=== PATIENT | female | born 1955 | race Hispanic/Latino ===

== ENCOUNTER 2018-01-17 18:16 | Emergency (ER) | payer OTHER ==
--- NOTE | 2018-01-17 19:15 | ER ---
Nurse's Notes [facility] Name: Kallie Rivera Age: 62 yrs Sex: Female : 1955 Arrival Date: 01/17/2018 Time: 18:16 Bed 18 Private MD: Diagnosis: Otitis media, unspecified, bilateral;Acute pharyngitis Presentation: 01/17 18:21 Presenting complaint: Patient states: I have been having problems with sore throat, la1 fevers, and ear pain for the last 3 weeks. I saw my PCP early December and she gave me shot but its not helping. Transition of care: patient was not received from another setting of care. Onset of symptoms was January 17, 2018. Initial Sepsis Screen: Does the patient meet any 2 criteria? No. Patient's initial sepsis screen is negative. Does the patient have a suspected source of infection? No. Patient's initial sepsis screen is negative. Care prior to arrival: None. 18:21 Method Of Arrival: Ambulatory la1 18:21 Acuity: PORFIRIO 4 la1 Historical: - Allergies: 18:22 No Known Allergies; la1 - PMHx: 18:22 Diabetes - NIDDM; Hypertension; la1 - Immunization history:: Adult Immunizations up to date. - Social history:: Smoking status: Patient/guardian denies using tobacco. Screenin:34 Abuse screen: Denies threats or abuse. Denies injuries from another. Nutritional bs1 screening: No deficits noted. Tuberculosis screening: No symptoms or risk factors identified. Fall Risk None identified. Assessment: 19:32 General: Appears in no apparent distress. uncomfortable, ill, Behavior is calm, bs1 cooperative, appropriate for age. Pain: Complains of pain in Right ear, throat Pain does not radiate. Neuro: Level of Consciousness is awake, alert, obeys commands, Oriented to person, place, time, situation, Appropriate for age Clay Carman are equal bilaterally Moves all extremities. Cardiovascular: Denies chest pain, palpitations, shortness of breath, Heart tones S1 S2 present Capillary refill < 3 seconds Patient's skin is warm and dry. Respiratory: Airway is patent Trachea midline Respiratory effort is even, unlabored, Breath sounds are clear bilaterally. GI: No deficits noted. No signs and/or symptoms were reported involving the gastrointestinal system. : No deficits noted. No signs and/or symptoms were reported regarding the genitourinary system. EENT: Throat is reddened Reports pain to right ear. Derm: Skin is intact, Skin is pink, warm \T\ dry. Musculoskeletal: Circulation, motion, and sensation intact. Capillary refill < 3 seconds, Range of motion: intact in all extremities. Vital Signs: 18:23 BP 174 / 68; Pulse 110; Resp 16; Temp 98.5(TE); Pulse Ox 96% on R/A; Weight 71.21 kg; la1 Height 5 ft. 1 in. (154.94 cm); 19:35 BP 159 / 93; Pulse 101; Resp 18; Temp 98.4(O); Pulse Ox 95% on R/A; Pain 5/10; bs1 18:23 Body Mass Index 29.66 (71.21 kg, 154.94 cm) la1 ED Course: 18:16 Patient arrived in ED. as 18:22 Triage completed. la1 18:23 Arm band placed on left wrist. la1 18:45 Toney Wilkins PA is PHCP. cp 18:45 Jamshid Dhaliwal MD is Attending Physician. cp 19:34 No provider procedures requiring assistance completed. Patient did not have IV access bs1 during this emergency room visit. 19:35 Patient has correct armband on for positive identification. Bed in low position. Call bs1 light in reach. Side rails up X 1. Pulse ox on. NIBP on. Administered Medications: No medications were administered Outcome: 19:14 Discharge ordered by . cp 19:35 Discharged to home ambulatory, with family. bs1 19:35 Condition: stable 19:35 Discharge instructions given to patient, family, Instructed on discharge instructions, follow up and referral plans. medication usage, Demonstrated understanding of instructions, follow-up care, medications, Prescriptions given X 2. 19:36 Patient left the ED. bs1 Signatures: Lynette Dietz Lee RN RN la1 Toney Wilkins PA PA cp Salazar, Brittany, RN RN bs1
--- NOTE | 2018-01-17 19:15 | EDPHYS ---
Physician Documentation [facility] Name: Kallie Rivera Age: 62 yrs Sex: Female : 1955 Arrival Date: 01/17/2018 Time: 18:16 Bed 18 Private MD: ED Physician Jamshid Dhaliwal HPI: 01/17 19:05 This 62 yrs old Female presents to ER via Ambulatory with complaints of Sore cp Throat, Fever, Ear Pain. 19:05 The patient presents with sore throat. Onset: The symptoms/episode began/occurred 3 cp week(s) ago. Severity of symptoms: in the emergency department the symptoms are unchanged. Associated signs and symptoms: Pertinent positives: earache, rhinorrhea. Patient reports she was seen by PCP and given IM steroid injection. Patient reports worsening symptoms. Historical: - Allergies: 18:22 No Known Allergies; la1 - PMHx: 18:22 Diabetes - NIDDM; Hypertension; la1 - Immunization history:: Adult Immunizations up to date. - Social history:: Smoking status: Patient/guardian denies using tobacco. ROS: 19:07 Eyes: Negative for injury, pain, redness, and discharge. cp 19:07 Constitutional: Negative for body aches, chills, fever, poor PO intake. 19:07 ENT: Positive for ear pain, sore throat, Negative for drainage from ear(s), difficulty swallowing, difficulty handling secretions, hoarseness. 19:07 Neck: Positive for swollen nodes. 19:07 Cardiovascular: Negative for chest pain, edema, palpitations. 19:07 Respiratory: Negative for cough, shortness of breath, wheezing. 19:07 Abdomen/GI: Negative for abdominal pain, vomiting, diarrhea, constipation. 19:07 Skin: Negative for cellulitis, rash. 19:07 Neuro: Negative for altered mental status, headache, weakness. 19:07 All other systems are negative. Exam: 19:07 Head/Face: Normocephalic, atraumatic. cp 19:07 Constitutional: The patient appears in no acute distress, alert, awake, non-toxic, well developed, well nourished. 19:07 Eyes: Periorbital structures: appear normal, Conjunctiva: normal, no exudate, no injection, Sclera: no appreciated abnormality, Lids and lashes: appear normal, bilaterally. 19:07 ENT: External ear(s): are unremarkable, Ear canal(s): are normal, clear, TM's: bulging, is not appreciated, bilaterally, erythema, that is mild, bilaterally, Mouth: Lips: moist, Oral mucosa: moist, Posterior pharynx: Airway: no evidence of obstruction, patent, Tonsils: with erythema, no enlargement, no exudate, Uvula: midline, swelling, is not appreciated, erythema, that is moderate, exudate, is not appreciated, Voice: is normal. 19:07 Neck: ROM/movement: is normal, is supple, without pain, no range of motions limitations, no nuchal rigidity, Lymph nodes: lymphadenopathy is appreciated, anterior cervical nodes. 19:07 Chest/axilla: Inspection: normal, Palpation: is normal, no crepitus, no tenderness. 19:07 Cardiovascular: Rate: tachycardic, Rhythm: regular. 19:07 Respiratory: the patient does not display signs of respiratory distress, Respirations: normal, no use of accessory muscles, no retractions, no splinting, no tachypnea, Breath sounds: are clear throughout, no decreased breath sounds, no stridor, no wheezing. 19:07 Abdomen/GI: Exam negative for discomfort, distension, guarding, Inspection: abdomen appears normal. 19:07 Skin: cellulitis, is not appreciated, no rash present. Vital Signs: 18:23 BP 174 / 68; Pulse 110; Resp 16; Temp 98.5(TE); Pulse Ox 96% on R/A; Weight 71.21 kg; la1 Height 5 ft. 1 in. (154.94 cm); 19:35 BP 159 / 93; Pulse 101; Resp 18; Temp 98.4(O); Pulse Ox 95% on R/A; Pain 5/10; bs1 18:23 Body Mass Index 29.66 (71.21 kg, 154.94 cm) la1 MDM: 18:45 Patient medically screened. 19:13 Data reviewed: vital signs, nurses notes, lab test result(s). 01/17 18:23 Order name: Flu; Complete Time: 19:04 la1 01/17 19:04 Interpretation: Reviewed. 01/17 18:23 Order name: Strep; Complete Time: 19:04 [facility] 01/17 18:55 Order name: Throat Culture EDMS Administered Medications: No medications were administered Disposition: 01/17/18 19:14 Discharged to Home. Impression: Otitis media, unspecified, bilateral, Acute pharyngitis. - Condition is Stable. - Discharge Instructions: Otitis Media, Adult, Pharyngitis. - Prescriptions for Prednisone 20 mg Oral Tablet - take 2 tablet by ORAL route once daily for 5 days; 10 tablet. Amoxicillin 875 mg Oral Tablet - take 1 tablet by ORAL route every 12 hours for 10 days; 20 tablet. - Medication Reconciliation Form, Thank You Letter, Antibiotic Education, Prescription Opioid Use form. - Follow up: Private Physician; When: 2 - 3 days; Reason: Recheck today's complaints. - Problem is new. - Symptoms are unchanged. Signatures: Dispatcher [employer] EDMS Luis De Leon, RN RN la1 Toney Wilkins PA PA cp Salazar, Brittany RN RN bs1
[2018-01-17 19:42] VITALS: BP 159/93; TEMP 98.4; O2SAT 95
== END 2018-01-17 19:36 | disposition home or self-care (01) ==
LOC: ER 18:16
DX: H66.93 Otitis media, unspecified, bilateral (principal); J02.9 Acute pharyngitis, unspecified
CPT/HCPCS: 87070; 87081; 87804; 99283

== ENCOUNTER 2018-04-23 09:51 | Inpatient (IN) | payer OTHER ==
--- OUTSIDE RECORDS SUMMARY | 2018-04-23 09:53 | XMS REPORT ---
:1955 Author Organization [employer] Care Team Providers Name Role Phone Gyu, Marilee Provider Role Unavailable Allergies, Adverse Reactions, Alerts Substance Reaction Event Type N.K.D.A. 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.4 Active Problem Hyperlipidemia, mixed E78.2 Active Problem Rheumatoid arthritis M06.9 Active Assessment Sinus pressure J34.89 Active Problem Benign essential HTN I10 Active Assessment Tinea pedis of both feet B35.3 Active Assessment Diabetic neuropathy E11.40 Active Problem Diabetes E11.9 Active Problem Osteopenia M85.80 Active Problem Obese E66.9 Active Problem Hyperglycemia R73.9 Active Problem Diabetic neuropathy E11.40 Active Assessment Benign essential HTN I10 Active Assessment custodial current use of insulin Z79.4 Active Assessment Seasonal allergic rhinitis due to J30.1 Active pollen Assessment Hyperlipidemia, mixed E78.2 Active Problem Seasonal allergic rhinitis due to J30.1 Active pollen Problem Surgical menopause, symptomatic E89.41 Active Assessment Type 2 diabetes mellitus with E11.41 Active diabetic mononeuropathy Problem Osteoarthritis of multiple joints M15.9 Active Problem Calculus of kidney and ureter N20.2 Active Problem Type 2 diabetes mellitus with E11.65 Active hyperglycemia Medications Medication Code Code Instructions Start End Status Dosage System Date Date Lipitor [facility] 02774209754 20 MG Orally Active 1 tablet Once a day Zestoretic ND 90597681123 20-12.5 MG Active 1 tablet Orally Once a day Tresiba [facility] 27237840566 200 UNIT/ML Active not defined FlexTouch Subcutaneous ProAir HFA [facility] 79353416406 108 (90 Base) Active 2 puffs as MCG/ACT needed Inhalation every 6 hrs Metformin HCl [facility] 49287231114 1000 MG Orally Active 1 tablet with Twice a day meals Jardiance [facility] 97631803385 25 MG Orally Active 1 tablet Once a day Victoza [facility] 25921374168 18 MG/3ML Active not defined Subcutaneous Clotrimazole [facility] 21093148445 1 % Externally March Active 1 application Twice a day , to affected 2017 area Lyrica [facility] 75811028127 75 MG Orally Active 1 capsule 1 Once a day to 3 hours before bedtime in the evening Bystolic [facility] 05941219412 10 MG Orally Active 1 tablet Once a day Aspirin [facility] 05176598273 81 MG Orally Active 1 tablet Once a day Results No Known Results Summary Purpose eClinicalWorks Submission
--- OUTSIDE RECORDS SUMMARY | 2018-04-23 09:53 | XMS REPORT ---
:1955 Author Organization [employer] Care Team Providers Name Role Phone Guy, Na Provider Role Unavailable Allergies No Known Allergies Problems Problem Type Condition Code Onset Dates Condition Status Problem Type 2 diabetes mellitus with E11.41 Active diabetic mononeuropathy Problem longterm current use of insulin Z79.4 Active Problem Hyperlipidemia, mixed E78.2 Active Problem Rheumatoid arthritis M06.9 Active Problem Benign essential HTN I10 Active Problem Diabetes E11.9 Active Problem Osteopenia M85.80 Active Problem Obese E66.9 Active Problem Hyperglycemia R73.9 Active Problem Diabetic neuropathy E11.40 Active Problem Seasonal allergic rhinitis due to J30.1 Active pollen Problem Surgical menopause, symptomatic E89.41 Active Problem Osteoarthritis of multiple joints M15.9 Active Problem Calculus of kidney and ureter N20.2 Active Problem Type 2 diabetes mellitus with E11.65 Active hyperglycemia Medications No Known Medications Results No Known Results Summary Purpose eClinicalWorks Submission
--- OUTSIDE RECORDS SUMMARY | 2018-04-23 09:53 | XMS REPORT ---
:1955 Author Organization [employer] Care Team Providers Name Role Phone Guy, Na Provider Role Unavailable Allergies No Known Allergies Problems Problem Type Condition Code Onset Dates Condition Status Problem Type 2 diabetes mellitus with E11.41 Active diabetic mononeuropathy Problem intermediate current use of insulin Z79.4 Active Problem [...]
--- OUTSIDE RECORDS SUMMARY | 2018-04-23 09:53 | XMS REPORT ---
:1955 Author Organization [employer] Care Team Providers Name Role Phone Guy, Na Provider Role Unavailable Allergies, Adverse Reactions, Alerts Substance Reaction Event Type N.K.D.A. 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 Active Problem Hyperlipidemia, mixed E78.2 Active Problem Seasonal allergic rhinitis due to J30.1 Active pollen Problem Calculus of kidney and ureter N20.2 Active Problem Obese E66.9 Active Problem Osteopenia M85.80 Active Assessment Pharyngitis, unspecified etiology J02.9 Active Assessment Seasonal allergic rhinitis, J30.2 Active unspecified trigger Problem Benign essential HTN I10 Active Problem Rheumatoid arthritis M06.9 Active Problem Diabetic neuropathy E11.40 Active Problem Diabetes E11.9 Active Problem Hyperglycemia R73.9 Active Problem Surgical menopause, symptomatic E89.41 Active Medications Medication Code Code Instructions Start End Status Dosage System Date Date Singulair [facility] 34336566893 10 MG Orally December Active 1 tablet in Once a day 2017 the evening Jardiance [facility] 68356827747 25 MG Orally Active 1 tablet Once a day Aspirin ND 21772229751 81 MG Orally Active 1 tablet Once a day Metformin HCl ND 58487947368 1000 MG Orally Active 1 tablet with Twice a day meals Clotrimazole [facility] 94083301200 1 % Externally March Active 1 application Twice a day , to affected 2018 area Zestoretic ND 10365860856 20-12.5 MG Active 1 tablet Orally Once a day Bystolic [facility] 97145301937 10 MG Orally Active 1 tablet Once a day Flonase [facility] 66023677526 50 MCG/ACT December Active 2 spray in Nasally Once a 2017 each nostril day Victoza [facility] 07601017795 18 MG/3ML Active not defined Subcutaneous Lyrica [facility] 41523671887 75 MG Orally Active 1 capsule 1 Once a day to 3 hours before bedtime in the evening Lipitor [facility] 44670101779 20 MG Orally Active 1 tablet Once a day Tresiba [facility] 27307403085 200 UNIT/ML Active not defined FlexTouch Subcutaneous ProAir HFA [facility] 24755318375 108 (90 Base) Active 2 puffs as MCG/ACT needed Inhalation every 6 hrs Results No Known Results Summary Purpose eClinicalWorks Submission
--- OUTSIDE RECORDS SUMMARY | 2018-04-23 09:54 | XMS REPORT ---
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
[2018-04-23] MEDS ORDERED: NA CHLORIDE 0.9% 1,000 ML ONE (10:27)
[2018-04-23] MEDS ORDERED: ONDANSETRON 4 MG/2 ML VIAL ONE (10:27)
[2018-04-23 10:39] LABS: Urine Blood TRACE (NEG); Urine Glucose 2+ (NEG); Urine Protein 1+ (NEG); Urine pH 5.5 (5.0-7.0)
[2018-04-23 10:48] LABS: Urine Bacteria 20-50 /HPF (<20); Urine Culture Reflex Order REFLEXED; Urine RBC <5 /HPF (NONE SEEN)
[2018-04-23 10:54] LABS: Absolute Lymphocytes (CBC) 0.9 K/uL (0.7-4.9); Absolute Monocytes 0.6 K/uL (0.1-1.3); Absolute Neutrophil 8.6 K/uL (1.8-8.0); Basophils % 0.2 % (0-1.3); Eosinophils % 0.1 % (0-4.4); Hematocrit 44.3 % (36.0-45.0); MCV 82.4 fL (80-100); Monocytes % 5.5 % (3.3-12.3); RBC Red Blood Cell Count 5.37 M/uL (3.86-4.86)
[2018-04-23] MEDS ORDERED: MORPHINE 4 MG/ML SYR ONE (11:04)
[2018-04-23 11:11] LABS: ALT/SGPT 25 U/L (12-78); AST/SGOT 14 U/L (15-37); Albumin 3.8 g/dL (3.4-5.0); Alkaline Phosphatase 105 U/L (45-117); Amylase Level 111 U/L (25-115); BUN Blood Urea Nitrogen 14 mg/dL (7-18); Bicarbonate 27 mmol/L (21-32); Bilirubin Direct < 0.1 mg/dL (0-0.2); Bilirubin Total 0.5 mg/dL (0.2-1.0); Glucose Level 300 mg/dL (74-106); Lipase 1391 U/L (73-393); Potassium 3.8 mmol/L (3.5-5.1); Protein, Total 7.3 g/dL (6.4-8.2); Sodium Level 138 mmol/L (136-145)
[2018-04-23 11:18] LABS: Blood Morphology Comment NOT SEEN (NOT SEEN); Platelet Estimate ADEQ; Urine White Blood Cell Casts OK
[2018-04-23] MEDS ORDERED: INSULIN -REGULAR HUMAN 50 UNIT/0.5 ML ML ONE (12:08)
--- NOTE | 2018-04-23 13:37 | RAD REPORT ---
EXAM DESCRIPTION: CT - Abdomen Pelvis W Contrast - 04/23/2018 1:12 pm CLINICAL HISTORY: Abdominal pain, bloating, nausea, fever, prior hysterectomy COMPARISON: None. TECHNIQUE: Biphasic, helical CT imaging of the abdomen and pelvis was performed following 100 ml non -ionic IV contrast. Oral contrast was given. All CT scans are performed using dose optimization technique as appropriate and may include automated exposure control or mA/KV adjustment according to patient size. FINDINGS: No suspicious findings in the lung bases. Patient has a minimal hiatal hernia. Liver shows fatty infiltration pattern with no focal liver lesion. No hepatomegaly or nodular capsule contour. No splenomegaly or focal splenic process. Gallbladder and biliary tree show no suspicious f indings. The body and tail portion of the pancreas shows no suspicious parenchymal process. No peripancreatic stranding in this region. Tissue plane separation between the second/third portions of the duodenum a nd the pancreatic head uncinate process region poorly defined. There is edema and stranding in the ad jacent fatty tissue. There is an approximately 2.5 centimeter area of decreased soft tissue attenuati on at the tissue plane as well as a questionable mass or area of diminished attenuation measuring 13 mm along medial wall of the second portion duodenum. There is no obstruction or delay in transit of o ral contrast through the duodenum. Distal duodenum is unremarkable. Symmetric renal function is seen with no hydronephrosis or suspicious renal mass. A 10 millimeter ryan cification is present mid right kidney. There is focal dilatation of the involved calyx. This is not an acute finding. Partially filled urinary bladder shows no suspicious finding. Uterus is absent. Ova diana are absent or atrophic. No adnexal mass. Jejunum and ileum show no acute findings. Colonic diverticulosis is present in the sigmoid without di verticulitis. An acute colon process is not identified. No free air, free fluid or pneumatosis. No o ther area of inflammatory stranding. No hernia, mass or bulky lymphadenopathy. No adrenal abnormalit y. No suspicious bony findings. IMPRESSION: Edema and stranding changes are present along around the uncinate process and head of th e pancreas with wall thickening and edema of the second and third portions of the duodenum. There is poor tissues plane separation between the involved duodenum and pancreas. Areas of diminished attenuation are present at the pancreas duodenum interface. This could be focal e asa or possibly hypodense mass. Most common etiology is pancreatitis with secondary duodenum involvement. Correlation is needed with any clinical or laboratory findings for pancreatitis. Continued follow-up is needed with re-evaluation after treatment of any acute pancreatitis symptoms. Fatty infiltration of the liver. No acute gallbladder or biliary tree finding. Nonobstructing 10 mm calcification in the mid right kidney.
--- NOTE | 2018-04-23 13:42 | EDPHYS ---
Physician Documentation [facility] Name: Kallie Rivera Age: 62 yrs Sex: Female : 1955 Arrival Date: 04/23/2018 Time: 09:54 Bed 16 Private MD: Marilee Guy ED Physician Raul Roca HPI: 04/23 10:25 This 62 yrs old Female presents to ER via Ambulatory with complaints of kav Abdominal Pain, Nausea. 10:25 The patient presents with abdominal pain that is diffuse. Onset: The symptoms/episode kav began/occurred acutely, last night. The symptoms do not radiate. Associated signs and symptoms: Pertinent positives: nausea, Pertinent negatives: diarrhea, vomiting. The symptoms are described as dull. Modifying factors: The symptoms are alleviated by nothing, the symptoms are aggravated by nothing. Severity of pain: At its worst the pain was severe just prior to arrival, a 8 / 10. The patient has not experienced similar symptoms in the past. The patient has not recently seen a physician. Patient is crying during assessment. Historical: - Allergies: : No Known Allergies; hj - Home Meds: :59 amlodipine 10 mg tab 1 tab once daily [Active]; lisinopril-hydrochlorothiazide 20-12.5 hj mg oral tab 1 tab once daily [Active]; Bystolic 10 mg oral tab 1 tab once daily [Active]; - PMHx: 09:59 Diabetes - NIDDM; Hypertension; hj - PSHx: :59 Hysterectomy; Tubal ligation; hj - Immunization history:: Adult Immunizations up to date. - Social history:: Smoking status: Patient/guardian denies using tobacco, Patient/guardian denies using alcohol. - Ebola Screening: : Patient negative for fever greater than or equal to 101.5 degrees Fahrenheit, and additional compatible Ebola Virus Disease symptoms Patient denies exposure to infectious person Patient denies travel to an Ebola-affected area in the 21 days before illness onset. - Family history:: not pertinent. - Hospitalizations: : No recent hospitalization is reported. - History obtained from: . ROS: 10:29 Constitutional: Negative for fever, chills, and weight loss, Eyes: Negative for injury, kav pain, redness, and discharge, ENT: Negative for injury, pain, and discharge, Neck: Negative for injury, pain, and swelling, Cardiovascular: Negative for chest pain, palpitations, and edema, Respiratory: Negative for shortness of breath, cough, wheezing, and pleuritic chest pain, Back: Negative for injury and pain, : Negative for injury, bleeding, discharge, and swelling, MS/Extremity: Negative for injury and deformity, Skin: Negative for injury, rash, and discoloration, Neuro: Negative for headache, weakness, numbness, tingling, and seizure, Psych: Negative for depression, anxiety, suicide ideation, homicidal ideation, and hallucinations, Allergy/Immunology: Negative for hives, rash, and allergies, Endocrine: Negative for neck swelling, polydipsia, polyuria, polyphagia, and marked weight changes, Hematologic/Lymphatic: Negative for swollen nodes, abnormal bleeding, and unusual bruising. 10:29 Abdomen/GI: Positive for abdominal pain, nausea, Negative for vomiting, diarrhea, black/tarry stool, rectal bleeding. Exam: 10:29 Constitutional: This is a well developed, well nourished patient who is awake, alert, kav and in no acute distress. Head/Face: Normocephalic, atraumatic. Eyes: Pupils equal round and reactive to light, extra-ocular motions intact. Lids and lashes normal. Conjunctiva and sclera are non-icteric and not injected. Cornea within normal limits. Periorbital areas with no swelling, redness, or edema. ENT: Nares patent. No nasal discharge, no septal abnormalities noted. Tympanic membranes are normal and external auditory canals are clear. Oropharynx with no redness, swelling, or masses, exudates, or evidence of obstruction, uvula midline. Mucous membranes moist. Neck: Trachea midline, no thyromegaly or masses palpated, and no cervical lymphadenopathy. Supple, full range of motion without nuchal rigidity, or vertebral point tenderness. No Meningismus. Chest/axilla: Normal chest wall appearance and motion. Nontender with no deformity. No lesions are appreciated. Cardiovascular: Regular rate and rhythm with a normal S1 and S2. No gallops, murmurs, or rubs. Normal PMI, no JVD. No pulse deficits. Respiratory: Lungs have equal breath sounds bilaterally, clear to auscultation and percussion. No rales, rhonchi or wheezes noted. No increased work of breathing, no retractions or nasal flaring. Back: No spinal tenderness. No costovertebral tenderness. Full range of motion. Skin: Warm, dry with normal turgor. Normal color with no rashes, no lesions, and no evidence of cellulitis. MS/ Extremity: Pulses equal, no cyanosis. Neurovascular intact. Full, normal range of motion. Neuro: Awake and alert, GCS 15, oriented to person, place, time, and situation. Cranial nerves II-XII grossly intact. Motor strength 5/5 in all extremities. Sensory grossly intact. Cerebellar exam normal. Normal gait. Psych: Awake, alert, with orientation to person, place and time. Behavior, mood, and affect are within normal limits. 10:29 Abdomen/GI: Inspection: obese Bowel sounds: active, all quadrants, Palpation: soft, moderate abdominal tenderness, in all quadrants. Vital Signs: 10:00 BP 151 / 75; Pulse 89; Resp 18; Temp 97.6(TE); Pulse Ox 98% on R/A; Weight 73.94 kg; hj Height 5 ft. 1 in. (154.94 cm); Pain 6/10; 11:47 BP 133 / 67; Pulse 76; Resp 18; Pulse Ox 95% on R/A; mt 13:45 BP 162 / 73; Pulse 79; Resp 16 S; Pulse Ox 96% on R/A; Pain 0/10; aa5 15:00 BP 161 / 76; Pulse 85; Resp 16 S; Temp 98.3(TE); Pulse Ox 98% on R/A; Pain 0/10; aa5 10:00 Body Mass Index 30.80 (73.94 kg, 154.94 cm) MDM: 10:11 Medical screening is not applicable. kav 10:29 Data reviewed: vital signs, nurses notes. kav 11:37 ED course: awaiting ct results. kav 13:12 Physician consultation: Lynne Andrews MD was called at 13:12, regarding admission, [facility] patient's condition, and will see patient. 13:28 ED course: awaiting ct results. ka 13:41 Physician consultation: was contacted at 13:41, would like medications started, kav rocephin 1 gm iv x 1 dose in ED setting. 04/23 10:19 Order name: Amylase, Serum; Complete Time: 11:35 [facility] 04/23 10:19 Order name: Basic Metabolic Panel; Complete Time: 11:35 [facility] 04/23 10:19 Order name: CBC with Diff; Complete Time: 11:35 [facility] 04/23 10:19 Order name: Creatinine for Radiology; Complete Time: 11:35 [facility] 04/23 10:19 Order name: Hepatic Function; Complete Time: 11:35 [facility] 04/23 10:19 Order name: Lipase; Complete Time: 11:35 [facility] 04/23 10:19 Order name: Urine Microscopic Only; Complete Time: 11:35 [facility] 04/23 10:29 Order name: CT Abd/Pelvis - W/Contrast; Complete Time: 13:38 [facility] 04/23 10:32 Order name: Urine Dipstick--Ancillary (enter results); Complete Time: 11:35 04/23 10:50 Order name: Urine Culture [facility] 04/23 10:57 Order name: CBC Smear Scan; Complete Time: 11:35 [facility] 04/23 10:08 Order name: Urine Dipstick-Ancillary (obtain specimen); Complete Time: 10:31 04/23 10:19 Order name: IV Saline Lock; Complete Time: 10:45 [facility] 04/23 10:19 Order name: Labs collected and sent; Complete Time: 10:45 ka Administered Medications: 10:40 Drug: NS 0.9% 1000 ml Route: IV; Rate: 125 ml/hr; Site: right antecubital; aa5 13:42 Follow up: IV Status: Infusion continued aa5 10:40 Drug: Zofran 4 mg Route: IVP; Site: right antecubital; aa5 10:45 Follow up: Response: No adverse reaction aa5 11:13 Drug: morphine 4 mg Route: IVP; Site: right antecubital; aa5 11:30 Follow up: Response: No adverse reaction; Marked relief of symptoms; Pain is decreased aa5 12:02 Not Given (md): Insulin Regular Human 6 units IVP once kav 12:03 Drug: Insulin Regular Human 5 units {Co-Signature: ed1 (Nicole Mccarty LVN).} Route: IVP; aa5 Site: right antecubital; 12:54 Follow up: Response: Blood sugar is lowered aa5 13:42 Drug: Rocephin - (cefTRIAXone) 1 grams {Note: given IVP per pharmacy protocol .} Route: aa5 IVPB; Infused Over: 30 mins; Site: right antecubital; 13:50 Follow up: Response: No adverse reaction aa5 Point of Care Testing: Blood Glucose: 11:59 Blood Glucose: 250 mg/dL; mh5 12:54 Blood Glucose: 202 mg/dL; aa5 Ranges: Critical Glucose Levels:Adult <50 mg/dl or >400 mg/dl <40 mg/dl or >180 mg/dl Disposition: 17:03 Co-signature as Attending Physician, Raul Roca MD I agree with the assessment and kdr plan of care. Disposition: 04/23/18 13:41 Hospitalization ordered by Lynne Andrews for Inpatient Admission. Preliminary diagnosis are Acute pancreatitis, unspecified, Hyperglycemia, unspecified, Urinary tract infection, site not specified. - Bed requested for Telemetry/MedSurg (observation). - Status is Inpatient Admission. aa5 - Condition is Stable. - Problem is new. - Symptoms have improved. UTI on Admission? Yes Signatures: Dispatcher [employer] EDMS Raul Roca MD MD kdr Vern, Katherine, PRODUCTION FOREMAN PRODUCTION FOREMAN Cyn Martinez RN RN aa5 Carlos Villanueva RN RN Kaye Kuo Nicole Mccarty [facility] ed1 Corrections: (The following items were deleted from the chart) 14:54 13:41 Hospitalization Ordered by Lynne Andrews MD for Inpatient Admission. Preliminary eb diagnosis is Acute pancreatitis, unspecified; Hyperglycemia, unspecified; Urinary tract infection, site not specified. Bed requested for Telemetry/MedSurg (observation). Status is Inpatient Admission. Condition is Stable. Problem is new. Symptoms have improved. UTI on Admission? Yes. servando 15:51 14:54 04/23/2018 13:41 Hospitalization Ordered by Lynne Andrews MD for Inpatient aa5 Admission. Preliminary diagnosis is Acute pancreatitis, unspecified; Hyperglycemia, unspecified; Urinary tract infection, site not specified. Bed requested for Telemetry/MedSurg (observation). Status is Inpatient Admission. Condition is Stable. Problem is new. Symptoms have improved. UTI on Admission? Yes. eb
--- NOTE | 2018-04-23 13:42 | ER ---
Nurse's Notes [facility] Name: Kallie Rivera Age: 62 yrs Sex: Female : 1955 Arrival Date: 04/23/2018 Time: 09:54 Bed 16 Private MD: Marilee Guy Diagnosis: Acute pancreatitis, unspecified;Hyperglycemia, unspecified;Urinary tract infection, site not specified Presentation: 04/23 09:55 Presenting complaint: Patient states: i have this stomach pain that started yesterday hj (epigastric area, that moves around the entire stomach), reports being bloated, reports nausea; report fever; denies diarrhea;. Transition of care: patient was not received from another setting of care. Onset of symptoms was April 23, 2018. Risk Assessment: Do you want to hurt yourself or someone else? Patient reports no desire to harm self or others. Initial Sepsis Screen: Does the patient meet any 2 criteria? No. Patient's initial sepsis screen is negative. Does the patient have a suspected source of infection? No. Patient's initial sepsis screen is negative. Care prior to arrival: None. 09:55 Method Of Arrival: Ambulatory 09:55 Acuity: PORFIRIO 3 hj Triage Assessment: 09:58 General: Appears in no apparent distress. uncomfortable, Behavior is calm, cooperative, hj appropriate for age. Pain: Complains of pain in abdomen. GI: Reports lower abdominal pain, upper abdominal pain, bloating, nausea. Historical: - Allergies: 09:59 No Known Allergies; hj - Home Meds: 09:59 amlodipine 10 mg tab 1 tab once daily [Active]; lisinopril-hydrochlorothiazide 20-12.5 hj mg oral tab 1 tab once daily [Active]; Bystolic 10 mg oral tab 1 tab once daily [Active]; - PMHx: 09:59 Diabetes - NIDDM; Hypertension; hj - PSHx: 09:59 Hysterectomy; Tubal ligation; hj - Immunization history:: Adult Immunizations up to date. - Social history:: Smoking status: Patient/guardian denies using tobacco, Patient/guardian denies using alcohol. - Ebola Screening: : Patient negative for fever greater than or equal to 101.5 degrees Fahrenheit, and additional compatible Ebola Virus Disease symptoms Patient denies exposure to infectious person Patient denies travel to an Ebola-affected area in the 21 days before illness onset. - Family history:: not pertinent. - Hospitalizations: : No recent hospitalization is reported. - History obtained from: . Screenin:57 Abuse screen: Denies threats or abuse. Denies injuries from another. Nutritional hj screening: No deficits noted. Tuberculosis screening: No symptoms or risk factors identified. Fall Risk None identified. Assessment: 09:58 GI: Bowel sounds present X 4 quads. Abd is soft and non tender. hj 10:15 General: Appears comfortable, Behavior is calm, cooperative, Reports chills for Pt aa5 states "my stomach felt like it had a fever last night". Pain: Complains of pain in right upper quadrant, left upper quadrant, right lower quadrant and left lower quadrant Pain radiates to epigastric area Pain currently is 6 out of 10 on a pain scale. Quality of pain is described as tender, Pain began last night Is continuous. Neuro: Level of Consciousness is awake, alert, obeys commands, Oriented to person, place, time, situation. Cardiovascular: Heart tones S1 S2 present Rhythm is regular. Respiratory: Airway is patent Respiratory effort is even, unlabored, Respiratory pattern is regular, symmetrical, Breath sounds are clear bilaterally. GI: Abdomen is round non-distended, Bowel sounds present X 4 quads. Abd is soft X 4 quads Abdomen is tender to palpation X 4 quads. Reports nausea, Patient currently denies diarrhea, vomiting. : No signs and/or symptoms were reported regarding the genitourinary system. EENT: No signs and/or symptoms were reported regarding the EENT system. Derm: Skin is pink, warm \\T\\ dry. Musculoskeletal: Range of motion: intact in all extremities. 11:05 Reassessment: Pt completed CT oral contrast, CT notified . aa5 11:05 Reassessment: Patient is alert, oriented x 3, equal unlabored respirations, skin aa5 warm/dry/pink. Pt notified of wait time for lab results and for CT scan to be completed, pt verbalized understanding . 11:30 Reassessment: Patient and/or family updated on plan of care and expected duration. Pain aa5 level reassessed. Patient is alert, oriented x 3, equal unlabored respirations, skin warm/dry/pink. Patient denies pain at this time. Patient states feeling better. 12:00 Reassessment: Patient is alert, oriented x 3, equal unlabored respirations, skin aa5 warm/dry/pink. Patient denies pain at this time. Patient states feeling better. Pt resting in bed with eyes closed now. . 12:54 Reassessment: Patient and/or family updated on plan of care and expected duration. Pain aa5 level reassessed. Patient is alert, oriented x 3, equal unlabored respirations, skin warm/dry/pink. Patient denies pain at this time. 14:00 Reassessment: Patient and/or family updated on plan of care and expected duration. Pain aa5 level reassessed. Patient is alert, oriented x 3, equal unlabored respirations, skin warm/dry/pink. Patient denies pain at this time. 15:00 Reassessment: Patient is alert, oriented x 3, equal unlabored respirations, skin aa5 warm/dry/pink. Patient denies pain at this time. 15:00 Reassessment: Attempted to call report to admitting nurse, staff reports nurse will aa5 call me back. . 15:48 Reassessment: Patient is alert, oriented x 3, equal unlabored respirations, skin aa5 warm/dry/pink. Vital Signs: 10:00 BP 151 / 75; Pulse 89; Resp 18; Temp 97.6(TE); Pulse Ox 98% on R/A; Weight 73.94 kg; hj Height 5 ft. 1 in. (154.94 cm); Pain 6/10; 11:47 BP 133 / 67; Pulse 76; Resp 18; Pulse Ox 95% on R/A; mt 13:45 BP 162 / 73; Pulse 79; Resp 16 S; Pulse Ox 96% on R/A; Pain 0/10; aa5 15:00 BP 161 / 76; Pulse 85; Resp 16 S; Temp 98.3(TE); Pulse Ox 98% on R/A; Pain 0/10; aa5 10:00 Body Mass Index 30.80 (73.94 kg, 154.94 cm) ED Course: 09:54 Patient arrived in ED. mr 09:54 Marilee Guy MD is Private Physician. mr 09:57 Triage completed. hj 09:58 Arm band placed on right wrist. hj 10:00 Patient has correct armband on for positive identification. Placed in gown. Bed in low hj position. Call light in reach. Side rails up X 1. 10:11 Sherine Silva, [facility] kav 10:11 Raul Roca MD is Attending Physician. kav 10:11 Cyn Castellanos, RN is Primary Nurse. aa5 10:30 Urine collected: clean catch specimen, cloudy. mh5 10:31 Urine Microscopic Only Sent. mh5 10:33 Missed attempt(s): 20 gauge in left forearm. Bleeding controlled, band aid applied, aa5 catheter tip intact. 10:35 Initial lab(s) drawn, by me, sent to lab. Inserted saline lock: 20 gauge in right aa5 antecubital area, using aseptic technique. Blood collected. 11:06 Oral contrast reported to be complete. vr 13:13 CT Abd/Pelvis - W/Contrast In Process Unspecified. EDMS 13:40 Lynne Andrews MD is Hospitalizing Provider. kav 15:48 No provider procedures requiring assistance completed. Patient admitted, IV remains in aa5 place. Administered Medications: 10:40 Drug: NS 0.9% 1000 ml Route: IV; Rate: 125 ml/hr; Site: right antecubital; aa5 13:42 Follow up: IV Status: Infusion continued aa5 10:40 Drug: Zofran 4 mg Route: IVP; Site: right antecubital; aa5 10:45 Follow up: Response: No adverse reaction aa5 11:13 Drug: morphine 4 mg Route: IVP; Site: right antecubital; aa5 11:30 Follow up: Response: No adverse reaction; Marked relief of symptoms; Pain is decreased aa5 12:02 Not Given (): Insulin Regular Human 6 units IVP once kav 12:03 Drug: Insulin Regular Human 5 units {Co-Signature: ed1 (Nicole Mccarty LVN).} Route: IVP; aa5 Site: right antecubital; 12:54 Follow up: Response: Blood sugar is lowered aa5 13:42 Drug: Rocephin - (cefTRIAXone) 1 grams {Note: given IVP per pharmacy protocol .} Route: aa5 IVPB; Infused Over: 30 mins; Site: right antecubital; 13:50 Follow up: Response: No adverse reaction aa5 Point of Care Testing: Blood Glucose: 11:59 Blood Glucose: 250 mg/dL; 5 12:54 Blood Glucose: 202 mg/dL; aa5 Ranges: Outcome: 13:41 Decision to Hospitalize by Provider. kadayday 15:48 Admitted to Med/surg accompanied by tech, via wheelchair, with chart, Report called to aa5 CHARLIE Parry 15:48 Condition: stable 15:48 Instructed on the need for admit, Demonstrated understanding of instructions. 15:51 Patient left the ED. aa5 Signatures: Dispatcher [employer] EDMS Sherine Silva, JOANIE CUSTOMER SALES SERVICE MANAGER Jolie Marquis mr Castellanos, Cyn, RN RN bc5 Krystyna Hess Henry, RN RN hj Martinez, Maria [facility] Anahy [place] Nicole Mccarty [employer] ed1 Corrections: (The following items were deleted from the chart) 10:02 10:00 Pulse 89bpm; Resp 18bpm; Pulse Ox 98% RA; Temp 97.6F Temporal; 73.94 kg; Height 5 hj ft. 1 in.; BMI: 30.8; Pain 6/10; hj 10:22 10:15 General: Appears comfortable, Behavior is calm, cooperative, aa5 aa5 10:45 10:15 GI: Abdomen is round non-distended, Bowel sounds present X 4 quads. Abd is soft aa5 and non tender X 4 quads. Reports nausea, Patient currently denies diarrhea, vomiting, aa5
[2018-04-23] MEDS ORDERED: CEFTRIAXONE/SWI 1gm 1 GM/10 ML SYR ONE (13:44)
--- NOTE | 2018-04-23 15:21 | P.HP ---
Certification for Inpatient Patient admitted to: Inpatient With expected LOS: >2 Midnights Patient will require the following post-hospital care: None Practitioner: I am a practitioner with admitting privileges, knowledge of patient current condition, hospital course, and medical plan of care. Services: Services provided to patient in accordance with Admission requirements found in Title 42 Section 412.3 of the Code of Federal Regulations Patient History Date of Service: 04/23/18 Primary Care Provider: Dr Guy Reason for admission: Abd pain History of Present Illness: 1 female with significant past medical history of high blood pressure, diabetes , who presented to the ED complaining of having some abdominal pain that she has been having for past 2-3 weeks however has good progressively worse. Patient stated that she has been having some epigastric pain which seemed like reflux for about 2 weeks but last night after she had pork chops her pain got worse and decided to come to the ER this morning. Patient stated that she has associated nausea and vomiting as well. She noticed that she was having some chills last night as well. Patient denies having any fever at this time. Patient stated that she has not had any similar symptoms in the past and this is the 1st time she is experiencing something like this. Her abdominal pain is generalized and cramping in nature. It is 7/10 at its worst. Patient has not taken any medications to help with the pain and does not think that anything makes it worse. No other complaints to offer at this time. In the ER patient was found to have elevated lipase along with abdominal CT that was consistent with acute pancreatitis and referred over for admission. Allergies No Known Allergies Allergy (Unverified 01/17/18 19:40) Home medications list reviewed: Yes - Past Medical/Surgical History Has patient received pneumonia vaccine in the past: No Diabetic: Yes -: HTN -: Diabetes Past Surgical History: Reviewed- Non-Contributory - Family History Family History: Reviewed- Non-Contributory Review of Systems General: As per HPI Physical Examination - Physical Exam General: Alert, In no apparent distress, Oriented x3 HEENT: Atraumatic Neck: Supple, 2+ carotid pulse no bruit, No LAD, Without JVD or thyroid abnormality Respiratory: Clear to auscultation bilaterally, Normal air movement Cardiovascular: Regular rate/rhythm, Normal S1 S2 Gastrointestinal: Normal bowel sounds, Soft and benign, Non-distended, No tenderness, Tenderness (Generalized tenderness) Musculoskeletal: No tenderness Integumentary: No rashes Neurological: Normal speech, Normal strength at 5/5 x4 extr, Normal tone Lymphatics: No axilla or inguinal lymphadenopathy - Studies Laboratory Data (last 24 hrs) 04/23/18 10:35: Creatinine 0.90 04/23/18 10:35: WBC 10.1, Hgb 15.1 H, Hct 44.3, Plt Count 210 04/23/18 10:35: Sodium 138, Potassium 3.8, BUN 14, Creatinine 0.90, Glucose 300 H, Total Bilirubin 0.5, AST 14 L, ALT 25, Alkaline Phosphatase 105, Amylase 111 , Lipase 1391 H Assessment and Plan - Problems (Diagnosis) (1) Acute pancreatitis Current Visit: Yes Status: Acute Plan: Lipase of 1390 with generalized abd pain. Unknown etiology at this time -CT abdomen with stranding around the head of the pancreas -IV fluids, nothing by mouth, pain medication, IV antibiotics as well. -if no improvement within 24-48 hr will get GI consultation for further workup. Qualifiers: Pancreatitis type: idiopathic Acute pancreatitis complication: no infection or necrosis Qualified Code(s): K85.00 - Idiopathic acute pancreatitis without necrosis or infection (2) UTI (urinary tract infection) Current Visit: Yes Status: Acute Plan: UA with positive nitrates and leukesterase. -urine culture collected -IV Rocephin Qualifiers: Urinary tract infection type: acute cystitis Hematuria presence: without hematuria Qualified Code(s): N30.00 - Acute cystitis without hematuria (3) Diabetes Current Visit: Yes Status: Chronic Plan: Will start on insulin sliding scale Qualifiers: Diabetes mellitus type: type 2 Diabetes mellitus fci insulin use: without fci use Diabetes mellitus complication status: without complication Qualified Code(s): E11.9 - Type 2 diabetes mellitus without complications (4) HTN (hypertension) Current Visit: Yes Status: Chronic Plan: Will restart home medication Qualifiers: Hypertension type: essential hypertension Qualified Code(s): I10 - Essential (primary) hypertension (5) Obesity Current Visit: Yes Status: Chronic Qualifiers: Obesity type: due to excess calories Obesity classification: adult class 2 (BMI 35 - 39.9) Serious obesity comorbidity presence: without serious comorbidity Body mass index: BMI 35.0-35.9 Qualified Code(s): E66.09 - Other obesity due to excess calories; Z68.35 - Body mass index (BMI) 35.0-35.9, adult Discharge Plan: Home Plan to discharge in: 48 Hours - Advance Directives Does patient have a Living Will: No Does patient have a Durable POA for Healthcare: No - Code Status/Comfort Care Code Status Assessed: Yes Critical Care: No
[2018-04-23] MEDS ORDERED: ACETAMINOPHEN 500 MG TAB PO PRN (15:49)
[2018-04-23] MEDS: INSULIN -REGULAR HUMAN 50 UNIT/0.5 ML ML SQ SCH ×2 (16:30→21:00)
[2018-04-23 17:31] VITALS: BMI 30.8
[2018-04-23] MEDS: NA CHLORIDE 0.9% 1,000 ML IV SCH (17:54)
[2018-04-23] MEDS: ONDANSETRON 4 MG/2 ML VIAL IV PRN (18:55)
[2018-04-23] MEDS ORDERED: KCL 20 MEQ/100 mL IVPB 20 MEQ/100 ML BAG IV SCH (21:00)
[2018-04-24] MEDS: INSULIN -REGULAR HUMAN 50 UNIT/0.5 ML ML SQ SCH ×4 (01:00→16:30)
[2018-04-24] MEDS: NA CHLORIDE 0.9% 1,000 ML IV SCH ×3 (04:16→21:07)
[2018-04-24 05:13] LABS: Absolute Lymphocytes (CBC) 1.1 K/uL (0.7-4.9); Absolute Monocytes 0.8 K/uL (0.1-1.3); Absolute Neutrophil 7.3 K/uL (1.8-8.0); Basophils % 0.3 % (0-1.3); Eosinophils % 0.7 % (0-4.4); Hematocrit 42.2 % (36.0-45.0); Lymphocytes % 12.3 % (15.3-44.8); MCH 27.9 pg (27.0-35.0); MCV 83.3 fL (80-100); MPV 9.3 fL (7.6-11.3); Monocytes % 8.8 % (3.3-12.3); RBC Red Blood Cell Count 5.07 M/uL (3.86-4.86)
[2018-04-24] MEDS ORDERED: HOME MED 1 EA UNK (Lisinopril/Hydrochlorothiazide [Lisinopril-Hctz 20-12.5 Mg Tab] 1 EACH) PO SCH (09:00)
[2018-04-24] MEDS ORDERED: NEBIVOLOL HCL PO SCH (09:00)
[2018-04-24] MEDS ORDERED: NEBIVOLOL HCL 20 MG TABLET PO SCH (09:00)
[2018-04-24 09:19] LABS: Albumin 3.2 g/dL (3.4-5.0); Bilirubin Total 0.7 mg/dL (0.2-1.0); Magnesium 1.8 mg/dL (1.8-2.4); Phosphorus 2.5 mg/dL (2.5-4.9); Potassium 3.7 mmol/L (3.5-5.1); Protein, Total 6.6 g/dL (6.4-8.2)
[2018-04-24] MEDS: LISINOPRIL 20 MG TAB PO SCH (10:07)
[2018-04-24] MEDS: hydroCHLOROthiazide 12.5 MG CAP PO SCH (10:08)
[2018-04-24] MEDS: AMLODIPINE 10 MG TAB PO SCH (10:08)
[2018-04-24] MEDS: MORPHINE 2 MG/ML SYR IV PRN ×2 (10:13→19:08)
--- NOTE | 2018-04-24 11:27 | P.PN ---
Subjective Date of Service: 04/24/18 Primary Care Provider: Dr Guy Chief Complaint: Abd pain Garzon seen and examined at bedside with RN chart reviewed. Case discussed with patient in charge nurse at bedside. Currently patient still complains of having some nausea vomiting and abdominal pain. States however that her pain is better than before. He has not been able to ambulate. States that she feels that there is a lot of fluid in her abdomen. Review of Systems General: As per HPI Physical Examination - Vital Signs Temperature: 98.3 F Blood Pressure: 139/66 Pulse: 81 Respirations: 20 Pulse Ox (%): 95 - Physical Exam General: Alert, In no apparent distress, Oriented x3 HEENT: Atraumatic, PERRLA, EOMI Neck: Supple, JVD not distended Respiratory: Clear to auscultation bilaterally, Normal air movement Cardiovascular: Regular rate/rhythm, Normal S1 S2 Gastrointestinal: Normal bowel sounds, Tenderness Musculoskeletal: No tenderness Integumentary: No rashes Neurological: Normal speech, Normal tone, Normal affect Lymphatics: No axilla or inguinal lymphadenopathy - Studies Medications List Reviewed: Yes Assessment & Plan - Problems (Diagnosis) (1) Acute pancreatitis Onset Date: 04/24/18 Current Visit: Yes Status: Acute Plan: Lipase of 1390 with generalized abd pain. Unknown etiology at this time -CT abdomen with stranding around the head of the pancreas -IV fluids, nothing by mouth, pain medication, IV antibiotics as well. -if no improvement within 24-48 hr will get GI consultation for further workup. Qualifiers: Pancreatitis type: idiopathic Acute pancreatitis complication: no infection or necrosis Qualified Code(s): K85.00 - Idiopathic acute pancreatitis without necrosis or infection (2) UTI (urinary tract infection) Onset Date: 04/24/18 Current Visit: Yes Status: Acute Plan: UA with positive nitrates and leukesterase. -urine culture collected -IV Rocephin Qualifiers: Urinary tract infection type: acute cystitis Hematuria presence: without hematuria Qualified Code(s): N30.00 - Acute cystitis without hematuria (3) Diabetes Onset Date: 04/24/18 Current Visit: Yes Status: Chronic Plan: Will start on insulin sliding scale Qualifiers: Diabetes mellitus type: type 2 Diabetes mellitus vermin exterminator insulin use: without vermin exterminator use Diabetes mellitus complication status: without complication Qualified Code(s): E11.9 - Type 2 diabetes mellitus without complications (4) HTN (hypertension) Onset Date: 04/24/18 Current Visit: Yes Status: Chronic Plan: Will restart home medication Qualifiers: Hypertension type: essential hypertension Qualified Code(s): I10 - Essential (primary) hypertension (5) Obesity Onset Date: 04/24/18 Current Visit: Yes Status: Chronic Qualifiers: Obesity type: due to excess calories Obesity classification: adult class 2 (BMI 35 - 39.9) Serious obesity comorbidity presence: without serious comorbidity Body mass index: BMI 35.0-35.9 Qualified Code(s): E66.09 - Other obesity due to excess calories; Z68.35 - Body mass index (BMI) 35.0-35.9, adult
[2018-04-24] MEDS: NEBIVOLOL HCL 5 MG TAB PO SCH (12:22)
[2018-04-25 05:19] LABS: Absolute Lymphocytes (CBC) 1.1 K/uL (0.7-4.9); Absolute Monocytes 0.9 K/uL (0.1-1.3); Absolute Neutrophil 6.6 K/uL (1.8-8.0); Basophils % 0.4 % (0-1.3); Eosinophils % 1.3 % (0-4.4); Hematocrit 40.1 % (36.0-45.0); Lymphocytes % 12.3 % (15.3-44.8); MCH 27.9 pg (27.0-35.0); MCV 84.1 fL (80-100); Monocytes % 10.3 % (3.3-12.3); RBC Red Blood Cell Count 4.77 M/uL (3.86-4.86)
[2018-04-25 05:32] LABS: Bilirubin Total 0.7 mg/dL (0.2-1.0); Potassium 3.5 mmol/L (3.5-5.1); Protein, Total 6.4 g/dL (6.4-8.2)
[2018-04-25] MEDS: INSULIN -REGULAR HUMAN 50 UNIT/0.5 ML ML SQ SCH ×5 (06:00→20:30)
[2018-04-25] MEDS ORDERED: KCL 20 MEQ/100 mL IVPB 20 MEQ/100 ML BAG IV SCH ×2 (08:00)
[2018-04-25] MEDS: NA CHLORIDE 0.9% 1,000 ML IV SCH ×3 (08:32→20:35)
[2018-04-25] MEDS: NEBIVOLOL HCL 5 MG TAB PO SCH (08:33)
[2018-04-25] MEDS: LISINOPRIL 20 MG TAB PO SCH (08:33)
[2018-04-25] MEDS: hydroCHLOROthiazide 12.5 MG CAP PO SCH (08:34)
[2018-04-25] MEDS: AMLODIPINE 10 MG TAB PO SCH (08:34)
[2018-04-25] MEDS ORDERED: D50W 25 GM/50 ML SYRINGE IV PRN (10:51)
[2018-04-25] MEDS ORDERED: GLUCAGON 1 MG/VIAL IM PRN (10:51)
--- NOTE | 2018-04-25 12:18 | P.PN ---
Subjective Date of Service: 04/25/18 Primary Care Provider: Dr Guy Chief Complaint: Abd pain Garzon seen and examined at bedside with RN chart reviewed. Case discussed with patient in charge nurse at bedside. Currently patient states that her abdominal pain is much better than before. Denies having any vomiting but states that she still them nausea No other complaints to offer Review of Systems General: As per HPI Physical Examination - Vital Signs Temperature: 97.5 F Blood Pressure: 139/71 Pulse: 78 Respirations: 18 Pulse Ox (%): 96 - Physical Exam General: Alert, In no apparent distress HEENT: Atraumatic, PERRLA, EOMI Neck: Supple, JVD not distended Respiratory: Clear to auscultation bilaterally, Normal air movement Cardiovascular: Regular rate/rhythm, Normal S1 S2 Gastrointestinal: Normal bowel sounds, Tenderness Musculoskeletal: No tenderness Integumentary: No rashes Neurological: Normal speech, Normal tone, Normal affect Lymphatics: No axilla or inguinal lymphadenopathy - Studies Medications List Reviewed: Yes Assessment & Plan - Problems (Diagnosis) (1) Acute pancreatitis Onset Date: 04/24/18 Current Visit: Yes Status: Acute Plan: Lipase of 1390 with generalized abd pain. Unknown etiology at this time -CT abdomen with stranding around the head of the pancreas -IV fluids, CLD now, pain medication, IV antibiotics as well. Qualifiers: Pancreatitis type: idiopathic Acute pancreatitis complication: no infection or necrosis Qualified Code(s): K85.00 - Idiopathic acute pancreatitis without necrosis or infection (2) UTI (urinary tract infection) Onset Date: 04/24/18 Current Visit: Yes Status: Acute Plan: UA with positive nitrates and leukesterase. -urine culture collected- Gram negative rode -IV Rocephin Qualifiers: Urinary tract infection type: acute cystitis Hematuria presence: without hematuria Qualified Code(s): N30.00 - Acute cystitis without hematuria (3) Diabetes Onset Date: 04/24/18 Current Visit: Yes Status: Chronic Plan: Will start on insulin sliding scale Qualifiers: Diabetes mellitus type: type 2 Diabetes mellitus mcfp insulin use: without mcfp use Diabetes mellitus complication status: without complication Qualified Code(s): E11.9 - Type 2 diabetes mellitus without complications (4) HTN (hypertension) Onset Date: 04/24/18 Current Visit: Yes Status: Chronic Plan: Will restart home medication Qualifiers: Hypertension type: essential hypertension Qualified Code(s): I10 - Essential (primary) hypertension (5) Obesity Onset Date: 04/24/18 Current Visit: Yes Status: Chronic Qualifiers: Obesity type: due to excess calories Obesity classification: adult class 2 (BMI 35 - 39.9) Serious obesity comorbidity presence: without serious comorbidity Body mass index: BMI 35.0-35.9 Qualified Code(s): E66.09 - Other obesity due to excess calories; Z68.35 - Body mass index (BMI) 35.0-35.9, adult Discharge Plan: Home Plan to discharge in: 24 Hours - Code Status/Comfort Care Code Status Assessed: Yes Critical Care: No
[2018-04-25] MEDS ORDERED: CEFTRIAXONE/SWI 1gm 1 GM/10 ML SYR IV SCH (18:00)
[2018-04-25] MEDS: ONDANSETRON 4 MG/2 ML VIAL IV PRN (18:16)
[2018-04-25 21:19] VITALS: O2SAT 97
[2018-04-26 06:18] LABS: Absolute Lymphocytes (CBC) 1.1 K/uL (0.7-4.9); Absolute Monocytes 0.7 K/uL (0.1-1.3); Absolute Neutrophil 4.9 K/uL (1.8-8.0); Basophils % 0.1 % (0-1.3); Eosinophils % 2.7 % (0-4.4); Hematocrit 40.1 % (36.0-45.0); Lymphocytes % 15.8 % (15.3-44.8); MCH 27.8 pg (27.0-35.0); MCV 84.8 fL (80-100); Monocytes % 10.1 % (3.3-12.3); RBC Red Blood Cell Count 4.73 M/uL (3.86-4.86)
[2018-04-26 06:29] LABS: Albumin 2.7 g/dL (3.4-5.0); Bilirubin Total 0.5 mg/dL (0.2-1.0); Magnesium 1.9 mg/dL (1.8-2.4); Phosphorus 3.3 mg/dL (2.5-4.9); Potassium 3.5 mmol/L (3.5-5.1); Protein, Total 6.5 g/dL (6.4-8.2)
[2018-04-26] MEDS: INSULIN -REGULAR HUMAN 50 UNIT/0.5 ML ML SQ SCH ×2 (07:30→11:30)
[2018-04-26] MEDS ORDERED: CEFTRIAXONE 1 GM/NS 50 ML 1 GM/50 ML BAG IV SCH (09:00)
[2018-04-26] MEDS: NA CHLORIDE 0.9% 1,000 ML IV SCH (10:42)
[2018-04-26] MEDS: NEBIVOLOL HCL 5 MG TAB PO SCH (10:44)
[2018-04-26] MEDS: LISINOPRIL 20 MG TAB PO SCH (10:44)
[2018-04-26] MEDS: AMLODIPINE 10 MG TAB PO SCH (10:47)
[2018-04-26] MEDS: hydroCHLOROthiazide 12.5 MG CAP PO SCH (10:47)
--- NOTE | 2018-04-26 12:21 | P.DS ---
Admission Date: 04/23/18 Discharge Date: 04/26/18 Primary Care Provider: Dr Guy Disposition: ROUTINE DISCHARGE Discharge Condition: GOOD Reason for Admission: Abd pain - Problems (1) Acute pancreatitis Onset Date: 04/24/18 Current Visit: Yes Status: Acute Qualifiers: Pancreatitis type: idiopathic Acute pancreatitis complication: no infection or necrosis Qualified Code(s): K85.00 - Idiopathic acute pancreatitis without necrosis or infection (2) UTI (urinary tract infection) Onset Date: 04/24/18 Current Visit: Yes Status: Acute Qualifiers: Urinary tract infection type: acute cystitis Hematuria presence: without hematuria Qualified Code(s): N30.00 - Acute cystitis without hematuria (3) Diabetes Onset Date: 04/24/18 Current Visit: Yes Status: Chronic Qualifiers: Diabetes mellitus type: type 2 Diabetes mellitus penitentiary insulin use: without penitentiary use Diabetes mellitus complication status: without complication Qualified Code(s): E11.9 - Type 2 diabetes mellitus without complications (4) HTN (hypertension) Onset Date: 04/24/18 Current Visit: Yes Status: Chronic Qualifiers: Hypertension type: essential hypertension Qualified Code(s): I10 - Essential (primary) hypertension (5) Obesity Onset Date: 04/24/18 Current Visit: Yes Status: Chronic Qualifiers: Obesity type: due to excess calories Obesity classification: adult class 2 (BMI 35 - 39.9) Serious obesity comorbidity presence: without serious comorbidity Body mass index: BMI 35.0-35.9 Qualified Code(s): E66.09 - Other obesity due to excess calories; Z68.35 - Body mass index (BMI) 35.0-35.9, adult Brief History of Present Illness: 1 female with significant past medical history of high blood pressure, diabetes , who presented to the ED complaining of having some abdominal pain that she has been having for past 2-3 weeks however has good progressively worse. Patient stated that she has been having some epigastric pain which seemed like reflux for about 2 weeks but last night after she had pork chops her pain got worse and decided to come to the ER this morning. Patient stated that she has associated nausea and vomiting as well. She noticed that she was having some chills last night as well. Patient denies having any fever at this time. Patient stated that she has not had any similar symptoms in the past and this is the 1st time she is experiencing something like this. Her abdominal pain is generalized and cramping in nature. It is 7/10 at its worst. Patient has not taken any medications to help with the pain and does not think that anything makes it worse. No other complaints to offer at this time. In the ER patient was found to have elevated lipase along with abdominal CT that was consistent with acute pancreatitis and referred over for admission. Hospital Course: Overall during the hospital stay patient remained stable Patient was initially admitted to the hospital for acute pancreatitis and urinary tract infection. Patient was started on IV fluids, pain management and nothing by mouth to rest the pancreas. Patient had marked improvement in her symptoms in 24 hr and thus was advanced to a clear liquid diet. Patient tolerated her diet well and thus was advanced to a soft diet. Overall her abdominal pain nausea and vomiting completely resolved here in the hospital. Patient was also found to have urinary tract infection due to E. coli which is sensitive to Ceftin in this patient was discharged home on Ceftin 500 mg b.i.d. for her urinary tract infection. Patient was asked to follow up with primary care provider in about 1-2 discharge. Vital Signs/Physical Exam: Temp Pulse Resp BP Pulse Ox 97.0 F 70 18 134/65 95 04/26/18 08:00 04/26/18 08:00 04/26/18 08:00 04/26/18 08:00 04/26/18 08:00 General: Alert, In no apparent distress HEENT: Atraumatic, PERRLA, EOMI Neck: Supple, JVD not distended Respiratory: Clear to auscultation bilaterally, Normal air movement Cardiovascular: Regular rate/rhythm, Normal S1 S2 Gastrointestinal: Normal bowel sounds, No tenderness Musculoskeletal: No tenderness Integumentary: No rashes Neurological: Normal speech, Normal tone, Normal affect Lymphatics: No axilla or inguinal lymphadenopathy Laboratory Data at Discharge: WBC 6.8 K/uL (4.3-10.9) D 04/26/18 05:22 Hgb 13.1 g/dL (12.0-15.0) 04/26/18 05:22 Hct 40.1 % (36.0-45.0) 04/26/18 05:22 Plt Count 174 K/uL (152-406) 04/26/18 05:22 Sodium 141 mmol/L (136-145) 04/26/18 05:22 Potassium 3.5 mmol/L (3.5-5.1) 04/26/18 05:22 BUN 8 mg/dL (7-18) 04/26/18 05:22 Creatinine 0.70 mg/dL (0.55-1.3) 04/26/18 05:22 Glucose 178 mg/dL (74-106) H 04/26/18 05:22 Phosphorus 3.3 mg/dL (2.5-4.9) 04/26/18 05:22 Magnesium 1.9 mg/dL (1.8-2.4) 04/26/18 05:22 Total Bilirubin 0.5 mg/dL (0.2-1.0) 04/26/18 05:22 AST 13 U/L (15-37) L 04/26/18 05:22 ALT 16 U/L (12-78) 04/26/18 05:22 Alkaline Phosphatase 88 U/L (45-117) 04/26/18 05:22 Triglycerides 218 mg/dL (<150) H 04/24/18 04:28 Cholesterol 200 mg/dL (<200) 04/24/18 04:28 HDL Cholesterol 33 mg/dL (40-60) L 04/24/18 04:28 Cholesterol/HDL Ratio 6.06 04/24/18 04:28 Amylase 111 U/L (25-115) 04/23/18 10:35 Lipase 1391 U/L (73-393) H 04/23/18 10:35 Home Medications: Amlodipine Besylate 10 mg PO DAILY 04/23/18 Insulin Degludec [Tresiba Flextouch U-100] 50 unit SQ BID 04/23/18 Lisinopril/Hydrochlorothiazide [Lisinopril-Hctz 20-12.5 mg Tab] 1 each PO DAILY 04/23/18 Nebivolol HCl [Bystolic] 1 tab PO DAILY 04/23/18 Cefuroxime Axetil [Cefuroxime] 500 mg PO BID #20 tab 04/26/18 New Medications: Cefuroxime Axetil [Cefuroxime] 500 mg PO BID #20 tab Diet: Regular Activity: Ad rickey Followup: Marilee Guy DO [Primary Care Provider] - 1 Week
[2018-04-26 12:31] VITALS: BP 144/66; TEMP 100
== END 2018-04-26 14:59 | disposition home or self-care (01) | DRG 439 ==
LOC: ER 09:51 → ERHOLD 14:11 → 2ND 15:37 → 4TH 04-24 15:43
PROVIDERS: ADMIT Family Medicine; ATTEND Family Medicine
DX: K85.00 Idiopathic acute pancreatitis without necrosis or infection (principal); N30.00 Acute cystitis without hematuria; E11.65 Type 2 diabetes mellitus with hyperglycemia; B96.20 Unspecified Escherichia coli [E. coli] as the cause of diseases classified elsewhere; I10 Essential (primary) hypertension; E66.09 Other obesity due to excess calories; Z68.35 Body mass index [BMI] 35.0-35.9, adult; Z79.4 Long term (current) use of insulin
CPT/HCPCS: 36415; 74177; 80048; 80053; 80061; 80076; 81003; 81015; 82150; 82962; 83690; 83735; 84100; 85025; 87077; 87086; 87088; 87186; 96361; 96374; 96375; 99285; J0696; J2270; J2405; J7030; Q9967

== ENCOUNTER 2019-03-31 21:05 | Emergency (ER) | payer OTHER ==
--- OUTSIDE RECORDS SUMMARY | 2019-03-31 21:09 | XMS REPORT ---
:1955 Author Organization [employer] Care Team Providers Name Role Phone Guy, Na Provider Role Unavailable Allergies No Known Allergies Problems Problem Type Condition Code Onset Dates Condition Status Problem Type 2 diabetes mellitus with E11.41 Active diabetic mononeuropathy Problem skilled nursing current use of insulin Z79.4 Active Problem [...]
--- OUTSIDE RECORDS SUMMARY | 2019-03-31 21:09 | XMS REPORT ---
:1955 Author Organization [employer] Care Team Providers Name Role Phone Guy, Marilee Provider Role Unavailable Allergies, Adverse Reactions, Alerts Substance Reaction Event Type N.K.D.A. 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 Active Problem [...] Assessment Benign essential HTN I10 Active Assessment [facility] current use of insulin Z79.4 Active Assessment [...] End Status Dosage System Date Date Lipitor [facility] 60896486704 20 MG Orally Active 1 tablet Once a day Zestoretic ND 33142696621 20-12.5 MG Active 1 tablet Orally Once a day Tresiba [facility] 70334171744 200 UNIT/ML Active not defined FlexTouch Subcutaneous ProAir HFA [facility] 08432888699 108 (90 Base) Active 2 puffs as MCG/ACT needed Inhalation every 6 hrs Metformin HCl [facility] 58748654499 1000 MG Orally Active 1 tablet with Twice a day meals Jardiance [facility] 71933589980 25 MG Orally Active 1 tablet Once a day Victoza [facility] 92986404633 18 MG/3ML Active not defined Subcutaneous Clotrimazole [facility] 28332987270 1 % Externally March Active 1 application Twice a day , to affected 2017 area Lyrica [facility] 35521393795 75 MG Orally Active 1 capsule 1 Once a day to 3 hours before bedtime in the evening Bystolic [facility] 38905052382 10 MG Orally Active 1 tablet Once a day Aspirin [facility] 60105231457 81 MG Orally Active 1 tablet Once a day Results No Known Results Summary Purpose [employer] Submission
--- OUTSIDE RECORDS SUMMARY | 2019-03-31 21:09 | XMS REPORT ---
:1955 Author Organization [employer] Care Team Providers Name Role Phone Guy, Na Provider Role Unavailable Allergies, Adverse Reactions, Alerts Substance Reaction Event Type N.K.D.A. Info Not Available Non Drug Allergy Problems Problem Type Condition Code Onset Dates Condition Status Assessment Fatty liver K76.0 Active Assessment Tinea pedis of both feet B35.3 Active Assessment Diabetic neuropathy E11.40 Active Assessment Seasonal allergic rhinitis due to J30.1 Active pollen Assessment Nephrolithiasis N20.0 Active Assessment Hyperlipidemia, mixed E78.2 Active Assessment Benign essential HTN I10 Active Assessment [facility]P current use of insulin Z79.4 Active Problem Seasonal allergic rhinitis due to J30.1 Active pollen Assessment History of acute pancreatitis Z87.19 Active Problem Osteoarthritis of multiple joints M15.9 Active Assessment Hospital discharge follow-up Z09 Active Problem Type 2 diabetes mellitus with E11.65 Active hyperglycemia Problem Hyperlipidemia, mixed E78.2 Active Problem Type 2 diabetes mellitus with E11.41 Active diabetic mononeuropathy Problem Nephrolithiasis N20.0 Active Problem Tinea pedis of both feet B35.3 Active Problem Hyperglycemia R73.9 Active Problem Fatty liver K76.0 Active Assessment Type 2 diabetes mellitus with E11.41 Active diabetic mononeuropathy Problem Seasonal allergic rhinitis, J30.2 Active unspecified trigger 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 Active Problem Pharyngitis, unspecified etiology J02.9 Active Problem Otalgia of right ear H92.01 Active Problem Diabetes E11.9 Active Problem Obese E66.9 Active Problem Benign essential HTN I10 Active Problem Rheumatoid arthritis M06.9 Active Problem Surgical menopause, symptomatic E89.41 Active Problem Calculus of kidney and ureter N20.2 Active Problem Osteopenia M85.80 Active Problem Diabetic neuropathy E11.40 Active Medications Medication Code Code Instructions Start End Status Dosage System Date Date Zestoretic [facility] 59536103419 20-12.5 MG Active 1 tablet Orally Once a day Singulair [facility] 96577236261 10 MG Orally January 26, Active 1 tablet Once a day 2017 in the evening Metformin HCl [facility] 55459651582 1000 MG Orally Active 1 tablet Twice a day with meals Flonase [facility] 35241277611 50 MCG/ACT January 26, Active 2 spray Nasally Once a 2017 in each day nostril Bystolic [facility] 65919515146 10 MG Orally Active 1 tablet Once a day ProAir HFA [facility] 39852651018 108 (90 Base) Active 2 puffs as MCG/ACT needed Inhalation every 6 hrs Victoza [facility] 53723026184 18 MG/3ML Active not Subcutaneous defined Aspirin [facility] 51310008776 81 MG Orally Active 1 tablet Once a day Tresiba [facility] 24567860671 200 UNIT/ML Active not FlexTouch Subcutaneous defined Amlodipine [facility] 57640125274 10 MG Orally May 08, Active 1 tablet Besylate Once a day 2017 Jardiance [facility] 14182967025 25 MG Active TAKE 1 TABLET BY MOUTH EVERY MORNING Jardiance [facility] 99497413789 25 MG Orally Active 1 tablet Once a day Lipitor [facility] 78789988670 20 MG Orally Active 1 tablet Once a day Lyrica [facility] 70106239048 75 MG Orally Active 1 capsule Once a day 1 to 3 hours before bedtime in the evening Results No Known Results Summary Purpose [employer] Submission
--- OUTSIDE RECORDS SUMMARY | 2019-03-31 21:09 | XMS REPORT ---
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
--- OUTSIDE RECORDS SUMMARY | 2019-03-31 21:09 | XMS REPORT ---
[...] Status Dosage System Date Date Singulair [facility] 27846615114 10 MG Orally December Active 1 tablet in Once a day 2017 the evening Jardiance [facility] 38603940093 25 MG Orally Active 1 tablet Once a day Aspirin ND 60414820642 81 MG Orally Active 1 tablet Once a day Metformin HCl ND 52630851976 1000 MG Orally Active 1 tablet with Twice a day meals Clotrimazole [facility] 64467184818 1 % Externally March Active 1 application Twice a day , to affected 2018 area Zestoretic ND 59992113446 20-12.5 MG Active 1 tablet Orally Once a day Bystolic [facility] 72122985120 10 MG Orally Active 1 tablet Once a day Flonase [facility] 90785835007 50 MCG/ACT December Active 2 spray in Nasally Once a 2017 each nostril day Victoza [facility] 88020341744 18 MG/3ML Active not defined Subcutaneous Lyrica [facility] 70187782114 75 MG Orally Active 1 capsule 1 Once a day to 3 hours before bedtime in the evening Lipitor [facility] 85015681988 20 MG Orally Active 1 tablet Once a day Tresiba [facility] 85808933293 200 UNIT/ML Active not defined FlexTouch Subcutaneous ProAir HFA [facility] 00885029008 108 (90 Base) Active 2 puffs as MCG/ACT needed Inhalation every 6 hrs Results No Known Results Summary Purpose eClinicalWorks Submission
--- OUTSIDE RECORDS SUMMARY | 2019-03-31 21:09 | XMS REPORT ---
:1955 Author Organization eClinicalWorks Care Team Providers Name Role Phone Guy, Na Provider Role Unavailable Allergies No Known Allergies Problems Problem Type Condition Code Onset Dates Condition Status Problem Type 2 diabetes mellitus with E11.41 Active diabetic mononeuropathy Problem assisted current use of insulin Z79.4 Active Problem [...]
--- OUTSIDE RECORDS SUMMARY | 2019-03-31 21:10 | XMS REPORT ---
:1955 Author Organization eClinicalWorks Care Team Providers Name Role Phone Guy, Na Provider Role Unavailable Allergies, Adverse Reactions, Alerts Substance Reaction Event Type N.K.D.A. Info Not Available Non Drug Allergy Problems Problem Type Condition Code Onset Dates Condition Status Assessment Fatty liver K76.0 Active Assessment Ingrown nail of great toe of right L60.0 Active foot Assessment Folliculitis L73.9 Active Assessment Diabetic neuropathy E11.40 Active Assessment Hyperlipidemia, mixed E78.2 Active Problem Seasonal allergic rhinitis due to J30.1 Active pollen Assessment Benign essential HTN I10 Active Problem Osteoarthritis of multiple joints M15.9 Active Assessment senior living current use of insulin Z79.4 Active Problem Type 2 diabetes mellitus with [...] allergic rhinitis, J30.2 Active unspecified trigger Problem senior living current use of insulin Z79.4 Active Problem [...] Start End Status Dosage System Date Date NovoLog Flexpen [facility] 88067341757 100 UNIT/ML Active as directed Subcutaneous 4 untis before meals (TID) Zestoretic [facility] 22324711746 20-12.5 MG Active 1 tablet Orally Once a day Jardiance [facility] 60218331993 25 MG Active TAKE 1 TABLET BY MOUTH EVERY MORNING Atorvastatin ND 38127517194 40 MG Orally Active 1 tablet Calcium Once a day Bystolic ND 17177244421 10 MG Orally Active 1 tablet Once a day Lyrica [facility] 47683506706 75 MG Orally Active 1 capsule 1 Once a day to 3 hours before bedtime in the evening One Touch Ultra [facility] 296937963919 1 In Vitro Active as directed Test Strips twice a day Jardiance [facility] 94993302630 25 MG Orally Active 1 tablet Once a day Humalog KwikPen [facility] 46868081400 100 UNIT/ML Oct 05, Active 4 units Subcutaneous 2018 before three times a meals day Amlodipine ND 86983939614 10 MG Orally Active 1 tablet Besylate Once a day Tresiba [facility] 08241629100 200 UNIT/ML Active 60 units in FlexTouch Subcutaneous am and 54 units of tresiba in pm Flonase [facility] 71328592425 50 MCG/ACT December Active 2 spray in Nasally Once a 2017 each day nostril ProAir HFA [facility] 08525117028 108 (90 Base) Active 2 puffs as MCG/ACT needed Inhalation every 6 hrs Lyrica [facility] 01570203368 75 MG Orally Active 1 capsule Twice a day BD Pen Needle [facility] 28367113374 32G X 4 MM SC Active as directed Myrtle U/F twice a day Aspirin [facility] 40823522169 81 MG Orally Active 1 tablet Once a day Clindamycin HCl [facility] 05156107797 300 MG Orally Nov 09, Active 1 capsule every 8 hrs 2019 Singulair [facility] 13600601125 10 MG Orally Active 1 tablet in Once a day the evening Lipitor ND 64416047758 20 MG Orally Active 1 tablet Once a day Tresiba [facility] 07445908395 200 UNIT/ML Active INJECT FlexTouch UNDER THE SKIN 75U DAILY & INCREASE BY 2U EVERY 3 DAYS TIL FASTING BG LESS THAN/EQUAL TO 90 Results No Known Results Summary Purpose eClinicalWorks Submission
--- OUTSIDE RECORDS SUMMARY | 2019-03-31 21:10 | XMS REPORT ---
:1955 Author Organization eClinicalWorks Care Team Providers Name Role Phone Guy, Na Provider Role Unavailable Allergies, Adverse Reactions, Alerts Substance Reaction Event Type N.K.D.A. 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 80897535181 81 MG Orally Active 1 tablet Once a day Jardiance [facility] 99601847793 25 MG Orally Active 1 tablet Once a day Bystolic ND 96275854242 10 MG Orally Active 1 tablet Once a day Lyrica ND 83985091281 75 MG Orally Active 1 capsule 1 Once a day to 3 hours before bedtime in the evening Jardiance [facility] 87269375085 25 MG Active TAKE 1 TABLET BY MOUTH EVERY MORNING Zestoretic [facility] 46225672244 20-12.5 MG Active 1 tablet Orally Once a day Atorvastatin ND 08921324523 40 MG Orally Active 1 tablet Calcium Once a day BD Pen Needle [facility] 41018264373 32G X 4 MM SC Sep 24, Active as directed Myrtle U/F twice a day 2017 Amlodipine ND 69517080228 10 MG Orally Active 1 tablet Besylate Once a day ProAir HFA [facility] 76320023072 108 (90 Base) Active 2 puffs as MCG/ACT needed Inhalation every 6 hrs Flonase ND 96487401304 50 MCG/ACT December Active 2 spray in Nasally Once a 2017 each day nostril Singulair [facility] 35250573761 10 MG Orally Active 1 tablet in Once a day the evening Lipitor ND 63700952377 20 MG Orally Active 1 tablet Once a day NovoLog Flexpen ND 72230310172 100 UNIT/ML Active as directed Subcutaneous 4 untis before meals (TID) One Touch Ultra [facility] 765256479739 1 In Vitro Sep 24February Active as directed Test Strips twice a day 2017 Lyrica [facility] 09381119078 75 MG Orally Active 1 capsule Twice a day Tresiba ND 13126975339 200 UNIT/ML Active INJECT FlexTouch UNDER THE SKIN 75U DAILY & INCREASE BY 2U EVERY 3 DAYS TIL FASTING BG LESS THAN/EQUAL TO 90 Tresiba ND 83580741611 200 UNIT/ML Active 60 units in FlexTouch Subcutaneous am and 54 units of tresiba in pm Results No Known Results Summary Purpose eClinicalWorks Submission
--- OUTSIDE RECORDS SUMMARY | 2019-03-31 21:10 | XMS REPORT ---
:1955 Author Organization eClinicalWorks Care Team Providers Name Role Phone Guy, Na Provider Role Unavailable Allergies No Known Allergies Problems Problem Type Condition Code Onset Dates Condition Status Problem Type 2 diabetes mellitus with E11.65 Active hyperglycemia Problem Hyperlipidemia, mixed E78.2 Active Problem Type 2 diabetes mellitus with E11.41 Active diabetic mononeuropathy Problem Nephrolithiasis N20.0 Active Problem Hyperglycemia R73.9 Active Problem Tinea pedis of both feet B35.3 Active Problem Fatty liver K76.0 Active Problem Seasonal allergic rhinitis, J30.2 Active unspecified trigger 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 Problem Pharyngitis, unspecified etiology J02.9 Active Problem Otalgia of right ear H92.01 Active Problem Diabetes E11.9 Active Problem Obese E66.9 Active Problem Benign essential HTN I10 Active Problem Rheumatoid arthritis M06.9 Active Problem Surgical menopause, symptomatic E89.41 Active Problem Calculus of kidney and ureter N20.2 Active Problem Osteopenia M85.80 Active Problem Seasonal allergic rhinitis due to J30.1 Active pollen Problem Diabetic neuropathy E11.40 Active Problem Osteoarthritis of multiple joints M15.9 Active Medications Medication Code Code Instructions Start End Date Status Dosage System Date [facility] 17367[facility] UNIT/ML Oct 05, Active 4 units KwikPen Subcutaneous 2019 before three times a meals day Results No Known Results Summary Purpose eClinicalWorks Submission
[2019-03-31 22:14] LABS: Basophils % 0.1 % (0-1.3); Lymphocytes % 7.7 % (15.3-44.8); MPV 8.7 fL (7.6-11.3); Monocytes % 2.6 % (3.3-12.3); RBC Red Blood Cell Count 5.75 M/uL (3.86-4.86)
[2019-03-31 22:28] LABS: Protime INR 0.91
[2019-03-31 22:30] LABS: ALT/SGPT 32 U/L (12-78); AST/SGOT 16 U/L (15-37); Albumin 3.9 g/dL (3.4-5.0); Alkaline Phosphatase 91 U/L (45-117); BUN Blood Urea Nitrogen 17 mg/dL (7-18); Bicarbonate 22 mmol/L (21-32); Bilirubin Direct 0.1 mg/dL (0-0.2); Bilirubin Total 0.5 mg/dL (0.2-1.0); Glucose Level 186 mg/dL (74-106); Magnesium 2.2 mg/dL (1.8-2.4); NT PRO-BNP 167 pg/mL (<125); Potassium 3.5 mmol/L (3.5-5.1); Protein, Total 7.7 g/dL (6.4-8.2); Sodium Level 142 mmol/L (136-145); Troponin (Emerg Dept Use Only) < 0.02 ng/mL (0.0-0.045)
[2019-03-31] MEDS ORDERED: ONDANSETRON 4 MG/2 ML VIAL ONE (22:30)
[2019-03-31] MEDS ORDERED: MECLIZINE HCL 12.5 MG TAB ONE (22:59)
[2019-03-31] MEDS ORDERED: FAMOTIDINE 20 MG/2 ML VIAL IV ONE (23:00)
--- NOTE | 2019-03-31 23:12 | RAD REPORT ---
EXAM DESCRIPTION: Flores Single View03/31/2019 10:21 pm CLINICAL HISTORY: Chest pain COMPARISON: 2017 FINDINGS: The lungs appear clear of acute infiltrate. The heart is normal size IMPRESSION: No acute abnormalities displayed
[2019-03-31 23:21] LABS: Blood Morphology Comment NOT SEEN (NOT SEEN); Platelet Estimate ADEQ
[2019-04-01 00:26] LABS: Urine Blood NEGATIVE (NEG); Urine Glucose 2+ (NEG); Urine Protein NEGATIVE (NEG)
[2019-04-01 00:29] LABS: Urine Bacteria >50 /HPF (<20); Urine Culture Reflex Order REFLEXED; Urine RBC <5 /HPF (NONE SEEN)
--- NOTE | 2019-04-01 00:35 | ER ---
Nurse's Notes [facility] Name: Kallie Rivera Age: 63 yrs Sex: Female : 1955 Arrival Date: 03/31/2019 Time: 21:13 Bed 15 Private MD: Diagnosis: Abnormalities of gait and mobility;Weakness;Dizziness and giddiness;Urinary tract infection, site not specified;Nausea and vomiting Presentation: 03/31 21:27 Presenting complaint: Patient states: she woke this morning feeling dizzy, nauseous and bb has been vomiting throughout the day, when she started walking she was going to the right. Transition of care: patient was not received from another setting of care. Onset of symptoms was March 31, 2019. Risk Assessment: Do you want to hurt yourself or someone else? Patient reports no desire to harm self or others. Initial Sepsis Screen: Does the patient meet any 2 criteria? No. Patient's initial sepsis screen is negative. Does the patient have a suspected source of infection? No. Patient's initial sepsis screen is negative. Care prior to arrival: None. 21:27 Method Of Arrival: Wheelchair bb 21:27 Acuity: PORFIRIO 3 bb Historical: - Allergies: 21:30 No Known Allergies; bb - Home Meds: 21:30 Tresiba FlexTouch U-100 subcutaneous subcutaneous [Active]; Humalog Pen Sub-Q [Active]; bb montelukast oral oral [Active]; Prednisone Oral [Active]; Methotrexate Sodium Oral [Active]; amlodipine 10 mg tab 1 tab once daily [Active]; Bystolic 10 mg Oral tab 1 tab once daily [Active]; lisinopril-hydrochlorothiazide 20-12.5 mg Oral tab 1 tab once daily [Active]; - PMHx: 21:30 Diabetes - NIDDM; Hypertension; bb - PSHx: 21:30 Hysterectomy; bb - Immunization history:: Adult Immunizations up to date. - Social history:: Smoking status: Patient/guardian denies using tobacco. - Ebola Screening: : No symptoms or risks identified at this time. Screenin:30 Abuse screen: Denies threats or abuse. Nutritional screening: No deficits noted. jb4 Tuberculosis screening: No symptoms or risk factors identified. Fall Risk IV access (20 points). Gait- Impaired (20 pts.). Total Lorenzana Fall Scale indicates Low Risk Score (25-44 pts). Fall prevention measures have been instituted. Side Rails Up X 2 Placed close to Nursing Station Frequent Obs/Assesments occuring Family Present and informed to notify staff if they need to leave bedside As available Patient and Family Educated on Fall Prevention Program and strategies. Assessment: 21:30 General: Appears in no apparent distress. uncomfortable, Behavior is cooperative, jb4 anxious. Pain: Denies pain. Neuro: Level of Consciousness is awake, alert, obeys commands, Oriented to person, place, time, situation. Cardiovascular: Patient's skin is warm and dry. Respiratory: Airway is patent Respiratory effort is even, unlabored, Respiratory pattern is regular, symmetrical. GI: Abdomen is non-distended, obese, Pt is actively vomiting bile, Reports nausea, vomiting. : No signs and/or symptoms were reported regarding the genitourinary system. EENT: No signs and/or symptoms were reported regarding the EENT system. Derm: Skin is intact, Skin is dry, Skin is pink, warm \T\ dry. pale, Skin temperature is cool. Musculoskeletal: Circulation, motion, and sensation intact. 22:53 Reassessment: Patient appears in no apparent distress at this time. Patient and/or jb4 family updated on plan of care and expected duration. Pain level reassessed. Patient is alert, oriented x 3, equal unlabored respirations, skin warm/dry/pink. Patient states symptoms have improved. Derm: Skin is intact, Skin is pink, warm \T\ dry. 23:15 Reassessment: Patient appears in no apparent distress at this time. Patient is alert, jb4 oriented x 3, equal unlabored respirations, skin warm/dry/pink. Patient states feeling better. Patient states symptoms have improved. 04/01 01:00 Reassessment: Patient appears in no apparent distress at this time. Patient and/or jb4 family updated on plan of care and expected duration. Pain level reassessed. Patient is alert, oriented x 3, equal unlabored respirations, skin warm/dry/pink. 01:30 Reassessment: report called to CHARLIE Jones at receiving facility. jb4 02:01 Reassessment: Patient appears in no apparent distress at this time. Patient and/or jb4 family updated on plan of care and expected duration. Pain level reassessed. Patient is alert, oriented x 3, equal unlabored respirations, skin warm/dry/pink. Pt loaded on to [facility] stretcher, verbalized understanding of need for transfer, called pt's family per pt's request to inform them the patient is being moved, informed family of facility and room number per pt's request. Vital Signs: 03/31 21:30 BP 172 / 74; Pulse 95; Resp 24 S; Temp 99.5(O); Pulse Ox 99% on R/A; Weight 77.11 kg bb (R); Height 5 ft. 1 in. (154.94 cm) (R); Pain 0/10; 23:15 BP 137 / 64; Pulse 87; Resp 20; Pulse Ox 94% on R/A; jb4 04/01 01:00 BP 132 / 53; Pulse 90; Resp 20; Temp 99.1(O); Pulse Ox 94% on R/A; jb4 03/31 21:30 Body Mass Index 32.12 (77.11 kg, 154.94 cm) bb NIH Stroke Scale Scores: 03/31 22:00 NIHSS Score: 0 cp ED Course: 21:13 Patient arrived in ED. ag3 21:18 Toney Wilkins PA is PHCP. cp 21:18 Prosper Birch MD is Attending Physician. cp 21:28 Triage completed. bb 21:30 Arm band placed on Patient placed in an exam room, on a stretcher, on pulse oximetry. bb Family accompanied patient. 21:30 Patient has correct armband on for positive identification. Bed in low position. Call jb4 light in reach. Side rails up X2. air sampling and monitoring on. Pulse ox on. NIBP on. 21:34 Surinder Armstrong, RN is Primary Nurse. jb4 22:21 XRAY Chest (1 view) In Process Unspecified. EDMS 22:42 CT completed. Patient tolerated procedure well. Patient moved to CT. Patient moved back wi from CT. 22:45 EKG done, by ED staff, reviewed by Toney ALFORD. jp3 22:48 CT Head Brain wo Cont In Process Unspecified. EDMS 04/01 02:00 No provider procedures requiring assistance completed. Patient transferred, IV remains jb4 in place. Administered Medications: 03/31 21:58 Drug: Zofran 4 mg Route: IVP; Site: right forearm; jb4 22:50 Drug: Pepcid 20 mg Route: IVP; Site: right antecubital; jb4 23:53 Follow up: Response: No adverse reaction jb4 22:50 Drug: Meclizine 25 mg Route: PO; jb4 23:52 Follow up: Response: No adverse reaction; Marked relief of symptoms [facility] 04/01 00:50 Drug: Rocephin - (cefTRIAXone) 1 grams Route: IVPB; Infused Over: 30 mins; Site: right jb4 antecubital; 01:20 Follow up: Response: No adverse reaction; IV Status: Completed infusion; IV Intake: [id number] Point of Care Testing: Blood Glucose: 03/31 21:34 Blood Glucose: 191 mg/dL; 4 Ranges: Intake: 04/01 01:20 IV: 50ml; Total: 50ml. 4 Outcome: 00:34 ER care complete, transfer ordered by MD. cui 02:00 Transferred by ground EMS to [facility]. [facility] 02:00 Condition: stable 02:00 Discharge instructions given to patient, family, Instructed on the need for transfer, Demonstrated understanding of instructions. 02:05 Patient left the ED. jb4 NIH Stroke Scale - NIH Stroke Score Date: 03/31/2019 Time: 22:00 Total Score = 0 1a. Level of Consciousness (LOC) - 0(Alert) 1b. Level of Consciousness (LOC) (Year \T\ Age) - 0(Both) 1c. LOC Commands (Open \T\ Closes Eyes/Slps) - 0(Both) 2. Best Gaze (Lateral Gaze Paresis) - 0(Normal) 3. Visual Field Loss - 0(No visual loss) 4. Facial Palsy - 0(Normal) 5a. Left Arm: Motor (10-second hold) - 0(No drift) 5b. Right Arm: Motor (10-second hold) - 0(No drift) 6a. Left Leg: Motor (5-second hold - always test supine) - 0(No drift) 6b. Right Leg: Motor (5-second hold - always test supine) - 0(No drift) 7. Limb Ataxia (finger/nose \T\ heel/tharsher - test with eyes open) - 0(Absent) 8. Sensory Loss (pinprick arms/legs/face) - 0(Normal) 9. Best Language: Aphasia (description/naming/reading) - 0(No aphasia) 10. Dysarthria (speech clarity - read or repeat words) - 0(Normal) 11. Extinction and Inattention (visual/tactile/auditory/spatial/personal) - 0(No abnormality) Initials: cp Signatures: Dispatcher [employer] Maddie Craig RN RN bb Page, Corey, PA PA cp Bryson, James, RN RN jb4 Gonsalo Farah Jacob jp3 Bonny Arriola ag3 Corrections: (The following items were deleted from the chart) 03/31 22:42 22:13 Patient moved to [place] felecia izquierdo
--- NOTE | 2019-04-01 00:36 | EDPHYS ---
Physician Documentation [facility] Name: Kallie Rivera Age: 63 yrs Sex: Female : 1955 Arrival Date: 03/31/2019 Time: 21:13 Bed 15 Private MD: ED Physician Prosper Birch HPI: 03/31 21:53 This 63 yrs old Female presents to ER via Wheelchair with complaints of cp Vomiting, Weakness, DIABETIC. 21:53 The patient presents to the emergency department with nausea, with "dry heaves", cp vomiting, that is continuous. 21:53 Onset: The symptoms/episode began/occurred today. Associated signs and symptoms: cp Pertinent positives: dizziness since this morning. 21:53 Onset: The symptoms/episode began/occurred at 10:00. cp 21:53 Possible causes: unknown. cp 21:53 Severity of symptoms: in the emergency department the symptoms are worse. cp Historical: - Allergies: 21:30 No Known Allergies; bb - Home Meds: 21:30 Tresiba FlexTouch U-100 subcutaneous subcutaneous [Active]; Humalog Pen Sub-Q [Active]; bb montelukast oral oral [Active]; Prednisone Oral [Active]; Methotrexate Sodium Oral [Active]; amlodipine 10 mg tab 1 tab once daily [Active]; Bystolic 10 mg Oral tab 1 tab once daily [Active]; lisinopril-hydrochlorothiazide 20-12.5 mg Oral tab 1 tab once daily [Active]; - PMHx: 21:30 Diabetes - NIDDM; Hypertension; bb - PSHx: 21:30 Hysterectomy; bb - Immunization history:: Adult Immunizations up to date. - Social history:: Smoking status: Patient/guardian denies using tobacco. - Ebola Screening: : No symptoms or risks identified at this time. ROS: 21:55 Constitutional: Negative for body aches, chills, fever, poor PO intake. cp 21:55 Eyes: Negative for injury, pain, redness, and discharge. cp 21:55 ENT: Negative for drainage from ear(s), ear pain, sore throat, difficulty swallowing, difficulty handling secretions. 21:55 Cardiovascular: Negative for chest pain, edema, palpitations. 21:55 Respiratory: Negative for cough, shortness of breath, wheezing. 21:55 Abdomen/GI: Positive for nausea and vomiting, Negative for abdominal pain, constipation, anorexia, black/tarry stool, rectal bleeding. 21:55 Back: Negative for pain at rest, pain with movement. 21:55 : Negative for urinary symptoms. 21:55 Skin: Negative for cellulitis, rash. 21:55 Neuro: Positive for dizziness, gait disturbance, weakness, Negative for altered mental status, speech changes, syncope, visual changes. 21:55 All other systems are negative. Exam: 22:05 Constitutional: The patient appears in no acute distress, alert, awake, cp non-diaphoretic, non-toxic, well developed, well nourished. 22:05 Head/Face: Normocephalic, atraumatic. Eyes: Pupils equal round and reactive to light, cp extra-ocular motions intact. Lids and lashes normal. Conjunctiva and sclera are non-icteric and not injected. Cornea within normal limits. Periorbital areas with no swelling, redness, or edema. ENT: Nares patent. No nasal discharge, no septal abnormalities noted. Tympanic membranes are normal and external auditory canals are clear. Oropharynx with no redness, swelling, or masses, exudates, or evidence of obstruction, uvula midline. Mucous membranes moist. Neck: Trachea midline, no thyromegaly or masses palpated, and no cervical lymphadenopathy. Supple, full range of motion without nuchal rigidity, or vertebral point tenderness. No Meningismus. Chest/axilla: Normal chest wall appearance and motion. Nontender with no deformity. No lesions are appreciated. 22:05 Cardiovascular: Rate: normal, Rhythm: regular, Heart sounds: murmur, not appreciated, rub, not appreciated, gallop, not appreciated, Edema: is not appreciated, JVD: is not appreciated. 22:05 Respiratory: the patient does not display signs of respiratory distress, Respirations: normal, no use of accessory muscles, no retractions, no splinting, no tachypnea, labored breathing, is not present, Breath sounds: are clear throughout, no decreased breath sounds, no stridor, no wheezing. 22:05 Abdomen/GI: Inspection: abdomen appears normal, Bowel sounds: active, all quadrants, Palpation: abdomen is soft and non-tender, in all quadrants, rebound tenderness, is not appreciated, voluntary guarding, is not appreciated, involuntary guarding, is not appreciated. 22:05 Back: pain, is absent, ROM is normal. 22:05 Skin: no rash present. 22:05 Neuro: Orientation: to person, place \\T\\ time. Mentation: is normal. 23:03 ECG was reviewed by the Attending Physician. Vital Signs: 21:30 BP 172 / 74; Pulse 95; Resp 24 S; Temp 99.5(O); Pulse Ox 99% on R/A; Weight 77.11 kg bb (R); Height 5 ft. 1 in. (154.94 cm) (R); Pain 0/10; 23:15 BP 137 / 64; Pulse 87; Resp 20; Pulse Ox 94% on R/A; jb4 04/01 01:00 BP 132 / 53; Pulse 90; Resp 20; Temp 99.1(O); Pulse Ox 94% on R/A; jb4 03/31 21:30 Body Mass Index 32.12 (77.11 kg, 154.94 cm) bb NIH Stroke Scale Scores: 03/31 22:00 NIHSS Score: 0 cp MDM: 21:37 Patient medically screened. 04/01 00:30 Physician consultation: DR Wynn, hospitalist \\T\\[facility], will cp accept patient as transfer. 00:35 Data reviewed: vital signs, nurses notes, lab test result(s), EKG, radiologic studies, cp CT scan, plain films. 00:35 Test interpretation: by ED physician or midlevel provider: ECG, plain radiologic cp studies. Counseling: I had a detailed discussion with the patient and/or guardian regarding: the historical points, exam findings, and any diagnostic results supporting the discharge/admit diagnosis, lab results, radiology results, the need to transfer to another facility, [facility] does not immediately have the required specialist. Response to treatment: the patient's symptoms have mildly improved after treatment. 03/31 21:52 Order name: Basic Metabolic Panel 03/31 21:52 Order name: CBC with Diff cp 03/31 21:52 Order name: LFT's cp 03/31 21:52 Order name: Magnesium; Complete Time: 23:25 cp 03/31 21:52 Order name: NT PRO-BNP; Complete Time: 23:25 cp 03/31 23:25 Interpretation: Abnormal: NT PRO-BNP 167. cp 03/31 21:52 Order name: PT-INR; Complete Time: 23:25 cp 03/31 21:52 Order name: Troponin (emerg Dept Use Only); Complete Time: 23:25 03/31 21:54 Order name: Basic Metabolic Panel; Complete Time: 23:25 EDCA 03/31 23:25 Interpretation: Normal except: CL 108; GLUC 186; GFR 53. cp 03/31 21:54 Order name: CBC with Automated Diff; Complete Time: 23:25 EDCA 03/31 23:26 Interpretation: Normal except: WBC 13.1; RBC 5.75; HGB 15.2; HCT 48.0; MCH 26.3; MCHC cp 31.6; NIECY% 89.6; LYM% 7.7; MN% 2.6; NEUT A 11.8. 03/31 21:54 Order name: Liver (Hepatic) Function; Complete Time: 23:25 EDCA 04/01 00:22 Interpretation: Normal except: GLOB 3.8; A/G 1.0. 03/31 22:15 Order name: Urine Microscopic Only; Complete Time: 00:30 03/31 22:17 Order name: Manual Differential; Complete Time: 23:25 EDCA 03/31 23:26 Interpretation: Abnormal: SEGS 86; BANDS [F] 5; LYM 5. 03/31 23:58 Order name: Urine Dipstick--Ancillary (enter results) [facility] 04/01 00:31 Order name: Urine Culture [facility] 03/31 21:52 Order name: XRAY Chest (1 view); Complete Time: 23:25 03/31 21:52 Order name: EKG; Complete Time: 21:54 03/31 21:52 Order name: Cardiac monitoring; Complete Time: 23:14 cp 03/31 21:52 Order name: EKG - Nurse/Tech; Complete Time: 23:14 cp 03/31 21:52 Order name: IV Saline Lock; Complete Time: 22:29 cp 03/31 21:52 Order name: Labs collected and sent; Complete Time: 22:29 cp 03/31 21:52 Order name: O2 Per Protocol; Complete Time: 22:29 cp 03/31 21:52 Order name: O2 Sat Monitoring; Complete Time: 22:29 cp 03/31 21:52 Order name: CT Head Brain wo Cont cp 03/31 21:52 Order name: Swallow Screen; Complete Time: 22:50 cp 03/31 22:15 Order name: Urine Dipstick-Ancillary (obtain specimen); Complete Time: 23:53 cp EC/03 23:03 Rate is 86 beats/min. Rhythm is regular. OR interval is normal. QRS interval is normal. cp QT interval is normal. T waves are Inverted in leads I, aVL. Interpreted by me. Reviewed by me. Administered Medications: 21:58 Drug: Zofran 4 mg Route: IVP; Site: right forearm; jb4 22:50 Drug: Pepcid 20 mg Route: IVP; Site: right antecubital; jb4 23:53 Follow up: Response: No adverse reaction 4 22:50 Drug: Meclizine 25 mg Route: PO; jb4 23:52 Follow up: Response: No adverse reaction; Marked relief of symptoms [facility] 04/01 00:50 Drug: Rocephin - (cefTRIAXone) 1 grams Route: IVPB; Infused Over: 30 mins; Site: right jb4 antecubital; 01:20 Follow up: Response: No adverse reaction; IV Status: Completed infusion; IV Intake: [id number] Point of Care Testing: Blood Glucose: 03/31 21:34 Blood Glucose: 191 mg/dL; jb4 Ranges: Critical Glucose Levels:Adult <50 mg/dl or >400 mg/dl <40 mg/dl or >180 mg/dl Disposition: 04/01/19 00:34 Transfer ordered to [facility]. Diagnosis are Abnormalities of gait and mobility, Weakness, Dizziness and giddiness, Urinary tract infection, site not specified, Nausea and vomiting. - Reason for transfer: Higher level of care. - Accepting physician is DR Wynn. - Condition is Stable. - Problem is new. - Symptoms have improved. NIH Stroke Scale - NIH Stroke Score Date: 03/31/2019 Time: 22:00 Total Score = 0 1a. Level of Consciousness (LOC) - 0(Alert) 1b. Level of Consciousness (LOC) (Year \\T\\ Age) - 0(Both) 1c. LOC Commands (Open \\T\\ Closes Eyes/Field Ironworker) - 0(Both) 2. Best Gaze (Lateral Gaze Paresis) - 0(Normal) 3. Visual Field Loss - 0(No visual loss) 4. Facial Palsy - 0(Normal) 5a. Left Arm: Motor (10-second hold) - 0(No drift) 5b. Right Arm: Motor (10-second hold) - 0(No drift) 6a. Left Leg: Motor (5-second hold - always test supine) - 0(No drift) 6b. Right Leg: Motor (5-second hold - always test supine) - 0(No drift) 7. Limb Ataxia (finger/nose \\T\\ heel/thrasher - test with eyes open) - 0(Absent) 8. Sensory Loss (pinprick arms/legs/face) - 0(Normal) 9. Best Language: Aphasia (description/naming/reading) - 0(No aphasia) 10. Dysarthria (speech clarity - read or repeat words) - 0(Normal) 11. Extinction and Inattention (visual/tactile/auditory/spatial/personal) - 0(No abnormality) Initials: cp Addendum: 04/05/2019 19:26 Co-signature as Attending Physician, Prosper Birch MD. gs Signatures: Dispatcher [employer] EDMaddie Manning RN RN bb Toney Wilkins PA PA cp Bryson, James, RN RN jb4 Prosper Birch MD MD Corrections: (The following items were deleted from the chart) 04/01 02:05 00:34 04/01/2019 00:34 Transfer ordered to [facility]. jb4 Diagnosis is Abnormalities of gait and mobility; Weakness; Dizziness and giddiness; Urinary tract infection, site not specified; Nausea and vomiting. Reason for transfer: Higher level of care. Accepting physician is DR Wynn. Condition is Stable. Problem is new. Symptoms have improved. cp
[2019-04-01] MEDS ORDERED: NA CHLORIDE 0.9% 50 ML IV ONE (00:59)
[2019-04-01] MEDS ORDERED: CEFTRIAXONE 1000 MG/VIAL ONE (00:59)
[2019-04-01 02:13] VITALS: O2SAT 94
[2019-04-01 02:15] VITALS: BP 132/53; TEMP 99.1
--- NOTE | 2019-04-01 07:03 | EKG ---
Test Date: 2019-03-31 Test Time: 22:49:57 Unemployment Inspector: MYNOR MEASUREMENT RESULTS: Intervals: Rate: 86 AR: 140 QRSD: 86 QT: 384 QTc: 459 [place]: P: 49 AR: 140 QRS: 18 T: 83 INTERPRETIVE STATEMENTS: Normal sinus rhythm Nonspecific T wave abnormality Abnormal ECG Compared to ECG 09/06/2005 09:55:00 T-wave abnormality now present Electronically Signed On 04-01-19 07:02:12 CDT by Bal Vaughn
--- NOTE | 2019-04-02 09:40 | RAD REPORT ---
EXAM DESCRIPTION: CT - Head Brain Wo Cont - 04/01/2019 2:29 am CLINICAL HISTORY: 63 years Female, vomiting;Dizziness TECHNIQUE: 5 mm axial images were obtained along with 3 mm reformatted coronal and sagittal images. This exam was performed according to our departmental dose-optimization program, which includes autom ated exposure control, adjustment of the mA and/or kV according to patient size and/or use of iterati ve reconstruction technique. COMPARISON: None. FINDINGS: No acute abnormal extracerebral fluid collections are demonstrated. The cortical sulci, ventricles, and cisterns are within normal limits. There are no areas of altered attenuation identified to suggest acute hemorrhage, infarction, or mass lesion. The visualized portions of the paranasal sinuses and mastoid air cells are clear. IMPRESSION: 1. Normal study. Electronically signed by: Ernst Mitchell MD 03/31/2019 10:52 PM CDT Due to temporary technical issues with the PACS/Fluency reporting system, reports are being signed by the in house radiologist as a courtesy to ensure prompt reporting. The interpreting radiologist is f ully responsible for the content of the report.
== END 2019-04-01 02:05 | disposition short-term general hospital (02) ==
LOC: ER 21:05
DX: N39.0 Urinary tract infection, site not specified (principal); R26.9 Unspecified abnormalities of gait and mobility; R53.1 Weakness; R11.2 Nausea with vomiting, unspecified; I10 Essential (primary) hypertension; E11.9 Type 2 diabetes mellitus without complications; Z79.4 Long term (current) use of insulin
CPT/HCPCS: 36415; 70450; 71045; 80048; 80076; 81003; 81015; 82962; 83735; 83880; 84484; 85025; 85610; 87077; 87086; 87088; 87186; 93005; 99285; J2405

== ENCOUNTER 2022-11-05 15:29 | Emergency (ER) | payer OTHER ==
--- OUTSIDE RECORDS SUMMARY | 2022-11-05 15:38 | XMS REPORT | Continuity of Care Document ---
:1955 Author Organization [facility] t Address [address] [place] [address] Care Team Providers Name Role Phone Marilee Guy DO Primary Care Physician Marilee Guy Attending Clinician Unavailable Nafisa Lindo MD Attending Clinician AYAN SONI Attending Clinician Unavailable AYAN SONI Admitting Clinician Unavailable Payers Payer Name Policy Type Policy Number Effective Date Expiration Date Edison mcbride AETNA 53 [id number] 2021 [facility] 00:[facility]:00 - [facility] MEDICARE MB [id number] [facility] NOVITAS [facility] MEDICARE MB [id number] [facility] NOVITAS [facility] MEDICARE MB [id number] [facility] NOVITAS [facility] MEDICARE MB [id number] [facility] NOVITAS [facility] Problems Condition Condition Condition Status Onset Resolution Last Treating Co mments Source Name Details Category Date Date Treatment Clinician Date Cryptogeni Cryptogeni Disease Active [facility] stroke c stroke 04-26 [facility]: of 00 Medicin e Controlled Controlled Disease Active [facility] type 2 type 2 04-26 [facility] diabetes diabetes 00:00: of mellitus mellitus 00 Medici n without without e complicati complicati on, with on, with long-term long-term current current use of use of insulin insulin CVA CVA Disease Active [facility] (cerebral (cerebral 04-02 [facility] vascular vascular 00:00: Medica l accident) accident) 00 Cent er Essential Essential Disease Active [facility] hypertensi hypertensi 04-01 [facility] kes on on 00:00: Medical 00 Center Diabetic Diabetic Disease Active [facility] neuropathy neuropathy 04-01 [facility] kes associated associated 00:00: Me dical with type with type 00 Cent er 2 diabetes 2 diabetes mellitus mellitus skilled nursing buttermaker helper Disease Active [facility] (current) (current) 04-01 [facility] use of use of 00:00: Medical insulin insulin 00 Center Mixed Mixed Disease Active [facility] hyperlipid hyperlipid 04-01 [facility] kes emia emia 00:00: Medical 00 [place] Osteoarthr Osteoarthr Disease Active [facility] itis of itis of [facility]01 [facility] multiple multiple 00:00: Medica l joints joints 00 Center History of History of Disease Active [facility] acute acute 04-01 [facility] pancreatit pancreatit 00:00: Me dical is is 00 Center Type 2 Type [address] [facility] diabetes diabetes 04-01 [facility] mellitus mellitus 00:00: Medica l with with 00 Center hyperglyce hyperglyce mira mira Vertigo Vertigo Disease Active [facility] 04[facility]01 [facility] 00:[facility]: Medical 00 [place] Nausea & Nausea & Disease Active [facility] vomiting vomiting 04-01 [facility] 00:[facility]: Medical 00 [place] [id number] Sciatica Problem Commo n of left Spirit side - [facility] [id number] Arthritis, Problem Co mmon lumbar Spirit spine - [facility] [id number] Primary Problem Comm on osteoarthr Spirit itis of [facility] left hip [facility] [id number] Varicose Problem Com mon [id number] veins of Spirit right - lower extremity [facility] with pain Medical Center Diabetes Diabetes Problem Commo n mellitus DMII Spirit without without - CHI complicati complicati on [facility] 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, Sp filomena failure symptomati - CHI c [facility] [id number] Seasonal Problem Commo n allergic Spirit rhinitis - due to [facility] Calculus Calculus Problem Commo n of kidney of kidney Spir it and ureter and ureter - [facility] [id number] Tinea Problem Common pedis of Spirit both feet - [facility] [id number] Seasonal Problem Comm on allergic Spirit rhinitis, - CHI unspecifie [facility] Rheumatoid Rheumatoid Problem C ommon arthritis arthritis Spir it - [facility] Hyperglyce Hyperglyce Problem C ommon mira mira [facility] [id number] Type 2 Problem Common diabetes [facility] mellitus - with [facility] mononeurop Medica l [facility] [id number] Pharyngiti Problem Co mmon s, Spirit unspecifie - CHI d etiology [facility] [id number] Otalgia of Problem C ommon [id number] right ear [facility] [id number] Fatty Problem Common liver [facility] [id number] Nephrolith Problem Com mon iasis Spirit [facility] 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 - diabetes with mellitus diabetic [facility] polyneurop [facility] [id number] Decreased Problem Com mon hearing of Spirit left ear [facility] Osteopenia Osteopenia Problem C ommon Spirit [facility] [id number] Tinnitus Problem Commo n of left [facility] ear [facility] Obese Obese Problem Common [facility] Diabetic Diabetic Problem Commo n neuropathy neuropathy Sp filomena - [facility] [id number] Cerebral Problem Commo n infarction Spirit , - CHI unspecifie [facility] [id number] History of Problem Co mmon cerebrovas Spirit cular - accident St (CVA) [facility] [id number] Need for Problem Comm on assistance Spirit due to - unsteady [facility] Allergies, Adverse Reactions, Alerts This patient has no known allergies or adverse reactions. Family History Family Member Diagnosis Comments Start Date Stop Date Source Natural mother Cardiomyopathy [facility] Natural mother Stroke [facility] Natural father Cancer [facility] Social History Social Habit Start Date Stop Date Quantity Comments Source History of Tobacco [facility] - Use [facility] Sex Assigned At [facility] filomena - [facility] Binge Medical Y[facility] History [facility] Alcohol Comment Medical C enter Alcohol intake 2019-04-01 2019-04-01 Current drinker Edison Hernandez 00:00:00 00:00:00 of alcohol Medical Center (finding) History SDOH 2019-04-01 2019-04-01 2 [facility] Alcohol Frequency 00:00:00 00:00:00 Medical Center Smoking Status Start Date Stop Date Source Never Smoker [facility] Medications Ordered Filled Start Stop Current Ordering Indication Dosage Frequency Signature Comments Components Source Medication Medication Date Date Medication? Clinician (SIG) Name Name Pregabalin Pregabalin 2021-09 No Pregabalin 75 MG 75 MG -16 75 MG 00:00: 00 Azelastine Azelastine No 1{drop_ Azelastine HCl 0.05 % HCl 0.05 % 11-20 into_af HCl 0.05 % 00:00: fected_ 00 eye} Lyrica 75 Lyrica 75 No 1{capsu BID Lyrica 75 MG MG 1-06 le} MG 00:00: 00 Cheratussin Cheratussin 2020-09- No 5{ml} Cheratussi AC 100-10 AC 100-10 2-03 12-10 n AC MG/5ML MG/5ML 00:00: 00:00 100-10 00 :00 MG/5ML Cheratussin Cheratussin 2020-09- No 5{ml} Cheratussi AC 100-10 AC 100-10 2-03 12-10 n AC MG/5ML MG/5ML 00:00: 00:00 100-10 00 :00 MG/5ML Cheratussin Cheratussin 2020- 2021- No 5{ml} Cheratussi AC 100-10 AC 100-10 2-03 12-10 n AC MG/5ML MG/5ML 00:00: 00:00 100-10 00 :00 MG/5ML Lyrica 75 Lyrica 75 2020-1 No 1{capsu BID Lyrica 75 MG MG 0-05 le} MG 00:00: 00 Lyrica 75 Lyrica 75 2020-1 No 1{capsu BID Lyrica 75 MG MG 0-05 le} MG 00:00: 00 Lyrica 75 Lyrica 75 2020-1 No 1{capsu BID Lyrica 75 MG MG 0-05 le} MG 00:00: 00 Lyrica 75 Lyrica 75 2020-1 No 1{capsu BID Lyrica 75 MG MG 0-05 le} MG 00:00: 00 Lyrica 75 Lyrica 75 2020-1 No 1{capsu BID MG MG 0-05 le} 00:00: 00 Bactrim DS Bactrim DS 2020-0 2020- No 1{table BID Bactrim DS 800-160 MG 800-160 MG 03-29 t} 800-160 MG 00:00: 00:00 00 :00 Ketoconazol Ketoconazol 2020-0 1- No 1{appli BID Ketoconazo e 2 % e 2 % 03-29 cation_ le 2 % 00:00: 00:00 to_affe 00 :00 cted_ar ea} Meclizine Meclizine No Meclizine HCl 12.5 MG HCl 12.5 MG 5-26 HCl 12.5 00:00: MG 00 Meclizine Meclizine 0 No Meclizine HCl 12.5 MG HCl 12.5 MG 5-26 HCl 12.5 00:00: MG 00 Meclizine Meclizine 2020-0 No Meclizine HCl 12.5 MG HCl 12.5 MG 5-26 HCl 12.5 00:00: MG 00 Meclizine Meclizine 0 No Meclizine HCl 12.5 MG HCl 12.5 MG 5-26 HCl 12.5 00:00: MG 00 Meclizine Meclizine 2020-0 No HCl 12.5 MG HCl 12.5 MG 5-26 00:00: 00 Meclizine Meclizine 2020-0 No Meclizine HCl 12.5 MG HCl 12.5 MG 5-26 HCl 12.5 00:00: MG 00 Meclizine Meclizine 2020-0 No Meclizine HCl 12.5 MG HCl 12.5 MG 5-26 HCl 12.5 00:00: MG 00 Meclizine Meclizine 2020-0 No Meclizine HCl 12.5 MG HCl 12.5 MG 5-26 HCl 12.5 00:00: MG 00 Meclizine Meclizine 2020-0 No Meclizine HCl 12.5 MG HCl 12.5 MG 5-26 HCl 12.5 00:00: MG 00 Meclizine Meclizine 2020-0 No Meclizine HCl 12.5 MG HCl 12.5 MG 5-26 HCl 12.5 00:00: MG 00 Meclizine Meclizine 2020-0 No Meclizine HCl 12.5 MG HCl 12.5 MG 5-26 HCl 12.5 00:00: MG 00 Meclizine Meclizine 2020-0 No Meclizine HCl 12.5 MG HCl 12.5 MG 5-26 HCl 12.5 00:00: MG 00 Meclizine Meclizine 2020-0 No Meclizine HCl 12.5 MG HCl 12.5 MG 5-26 HCl 12.5 00:00: MG 00 Meclizine Meclizine 2020-0 No Meclizine HCl 12.5 MG HCl 12.5 MG 5-26 HCl 12.5 00:00: MG 00 Meclizine Meclizine 2020-0 No Meclizine HCl 12.5 MG HCl 12.5 MG 5-26 HCl 12.5 00:00: MG 00 Meclizine Meclizine 2020-0 No Meclizine HCl 12.5 MG HCl 12.5 MG 5-26 HCl 12.5 00:00: MG 00 Augmentin Augmentin 2019-0 2020- No Na Guy 1 tablet Common 6-17 06-24 Spirit 00:00: 00:00 - CHI 00 :00 [facility] Tamiflu Tamiflu 2020-0 Yes Na Guy 1 capsule Common 2-24 Spirit 00:00: - CHI 00 [facility] Tamiflu 75 Tamiflu 75 2020-0 No 1{capsu BID Tamiflu 75 MG MG 2-24 le} MG 00:00: 00 Tamiflu 75 Tamiflu 75 2020-0 No 1{capsu BID Tamiflu 75 MG MG 2-24 le} MG 00:00: 00 Tamiflu 75 Tamiflu 75 2020-0 No 1{capsu BID Tamiflu 75 MG MG 2-24 le} MG 00:00: 00 Tamiflu 75 Tamiflu 75 2020-0 No 1{capsu BID Tamiflu 75 MG MG 2-24 le} MG 00:00: 00 Tamiflu 75 Tamiflu 75 2020-0 No 1{capsu BID MG MG 2-24 le} 00:00: 00 Tamiflu 75 Tamiflu 75 2020-0 No 1{capsu BID Tamiflu 75 MG MG 2-24 le} MG 00:00: 00 Tamiflu 75 Tamiflu 75 2020-0 No 1{capsu BID Tamiflu 75 MG MG 2-24 le} MG 00:00: 00 Tamiflu 75 Tamiflu 75 2020-0 No 1{capsu BID Tamiflu 75 MG MG 2-24 le} MG 00:00: 00 Tamiflu 75 Tamiflu 75 2020-0 No 1{capsu BID Tamiflu 75 MG MG 2-24 le} MG 00:00: 00 Tamiflu 75 Tamiflu 75 2020-0 No 1{capsu BID Tamiflu 75 MG MG 2-24 le} MG 00:00: 00 Tamiflu 75 Tamiflu 75 2020-0 No 1{capsu BID Tamiflu 75 MG MG 2-24 le} MG 00:00: 00 Tamiflu 75 Tamiflu 75 2020-0 No 1{capsu BID Tamiflu 75 MG MG 2-24 le} MG 00:00: 00 Tamiflu 75 Tamiflu 75 2020-0 No 1{capsu BID Tamiflu 75 MG MG 2-24 le} MG 00:00: 00 Tamiflu 75 Tamiflu 75 2020-0 No 1{capsu BID Tamiflu 75 MG MG 2-24 le} MG 00:00: 00 Tamiflu 75 Tamiflu 75 2020-0 No 1{capsu BID Tamiflu 75 MG MG 2-24 le} MG 00:00: 00 Tamiflu 75 Tamiflu 75 2019-0 No 1{capsu BID Tamiflu 75 MG MG 2-24 le} MG 00:00: 00 Clopidogrel Yes Take by [place] [facility]ie & Aspirin 9-06 mouth College 75 & 81 MG 15:45: daily. of THPK 35 Medicin e Insulin Yes Inject Roderick Degludec 9-06 into the [facility] (TRESIBA 15:43: skin of FLEXTOUCH) 58 daily. Medicin 100 UNIT/ML e SOPN insulin Yes 4U Inject 4 Roderick lispro 9-06 Units into [facility] (HUMALOG) 15:43: the skin of 100 UNIT/ML 58 daily. Medici n injection e pregabalin Yes 75mg Take 75 mg [facility] (LYRICA) 75 9-06 by mouth Erica ege MG capsule 15:43: daily. of 58 Medicin e clopidogrel 2020- No 75mg Take 75 mg [facility] (PLAVIX) 75 7-07 07-07 by mouth Col lege MG tablet 00:00: 04:59 daily. of 00 :00 Medicin e pregabalin Yes 75mg QD Take [address] (LYRICA) 75 7-06 by mouth Luke s MG capsule 13:30: nightly. Med ical 00 [place] nebivolol Yes 10mg QD Take [address] (BYSTOLIC) 7-06 by mouth [facility] 10 MG 13:30: daily. Medical tablet 00 [place] insulin Yes Inject [facility] degludec 7-06 subcutaneo [facility] (TRESIBA 13:30: usly 60 Medica l FLEXTOUCH 00 units in Center U-100) 100 the day unit/mL (3 and 40 mL) InPn units at night . insulin Yes 4U Inject [address] lispro 7-06 Units [facility] (HUMALOG) 13:30: subcutaneo Me dical 100 unit/mL 00 usly 3 Center injection (three) times daily before meals. amLODIPine Yes 10mg QD Take [address] (NORVASC) 7-06 by mouth [facility] 10 MG 13:30: daily. Medical tablet 00 [place] meclizine 2019-0 Yes 3 times [facility] (ANTIVERT) 7-06 daily. College 12.5 MG 00:00: of tablet 00 Medicin e atorvastati 2018- Yes 40mg Take 40 mg [facility] n (LIPITOR) 6 by mouth Erica ege 40 MG 00:00: daily. of tablet 00 Medicin e Ergocalcife 2019-0 Yes daily. [place] [address] 6- College units CAPS 00:00: of 00 Medicin e atorvastati 2018- Yes 40mg QD Take [address] n (LIPITOR) 6 by mouth Luke s 40 MG 00:00: daily. Medical tablet 00 [place] FreeStyle FreeStyle Yes Na Guy as Common Ishmael 14 Ishmael 14 5-08 directed Spi rit Day [place] Day [place] 00:00: - CHI 00 [facility] FreeStyle FreeStyle No QD FreeStyle Ish[place] 14 Ishmael 14 5-08 Ishmael 14 Day [place] Day [place] 00:00: Day [place] - - 00 - FreeStyle FreeStyle 0 No QD FreeStyle Ishmael 14 Ishmael 14 5-08 Ishmael 14 Day [place] Day [place] 00:00: Day [place] - - 00 - FreeStyle FreeStyle 2018-0 No QD FreeStyle Ishmael 14 Ishmael 14 5-08 Ishmael 14 Day [place] Day [place] 00:00: Day [place] - - 00 - FreeStyle FreeStyle 2018-0 No QD FreeStyle Ishmael 14 Ishmael 14 5-08 Ishmael 14 Day [place] Day [place] 00:00: Day [place] - - 00 - FreeStyle FreeStyle 2018-0 No QD Ishmael 14 Ishmael 14 5-08 Day [place] Day [place] 00:00: - - 00 FreeStyle FreeStyle 2019-0 No QD FreeStyle Ishmael 14 Ishmael 14 5-08 Ishmael 14 Day [place] Day [place] 00:00: Day [place] - - 00 - FreeStyle FreeStyle 2019-0 No QD FreeStyle Ishmael 14 Ishmael 14 5-08 Ishmael 14 Day [place] Day [place] 00:00: Day [place] - - 00 - FreeStyle FreeStyle 2019-0 No QD FreeStyle Ishmael 14 Ishmael 14 5-08 Ishmael 14 Day [place] Day [place] 00:00: Day [place] - - 00 - FreeStyle FreeStyle 2019-0 No QD FreeStyle Ishmael 14 Ishmael 14 5-08 Ishmael 14 Day [place] Day [place] 00:00: Day [place] - - 00 - FreeStyle FreeStyle 2019-0 No QD FreeStyle Ishmael 14 Ishmael 14 5-08 Ishmael 14 Day [place] Day [place] 00:00: Day [place] - - 00 - FreeStyle FreeStyle 2019-0 No QD FreeStyle Ishmael 14 Ishmael 14 5-08 Ishmael 14 Day [place] Day [place] 00:00: Day [place] - - 00 - FreeStyle FreeStyle 2019-0 No QD FreeStyle Ishmael 14 Ishmael 14 5-08 Ishmael 14 Day [place] Day [place] 00:00: Day [place] - - 00 - FreeStyle FreeStyle 2019-0 No QD FreeStyle Ishmael 14 Ishmael 14 5-08 Ishmael 14 Day [place] Day [place] 00:00: Day [place] - - 00 - FreeStyle FreeStyle 2019-0 No QD FreeStyle Ishmael 14 Ishmael 14 5-08 Ishmael 14 Day [place] Day [place] 00:00: Day [place] - - 00 - FreeStyle FreeStyle 2019-0 No QD FreeStyle Ishmael 14 Ishmael 14 5-08 Ishmael 14 Day [place] Day [place] 00:00: Day [place] - - 00 - FreeStyle FreeStyle 2019-0 No QD FreeStyle Ishmael 14 Ishmael 14 5-08 Ishmael 14 Day [place] Day [place] 00:00: Day [place] - - 00 - Clindamycin Clindamycin 2019-0 Yes Na Guy 1 capsule Common HCl HCl 2-11 Spirit 00:00: - CHI 00 [facility] Clindamycin Clindamycin 2019-0 No 1{capsu TID Clindamyci HCl 300 MG HCl 300 MG 2-11 le} n HCl 300 00:00: MG 00 Clindamycin Clindamycin 2019-0 No 1{capsu TID Clindamyci HCl 300 MG HCl 300 MG 2-11 le} n HCl 300 00:00: MG 00 Clindamycin Clindamycin 2019-0 No 1{capsu TID Clindamyci HCl 300 MG HCl 300 MG 2-11 le} n HCl 300 00:00: MG 00 Clindamycin Clindamycin 2019-0 No 1{capsu TID Clindamyci HCl 300 MG HCl 300 MG 2-11 le} n HCl 300 00:00: MG 00 Clindamycin Clindamycin 2019-0 No 1{capsu TID Clindamyci HCl 300 MG HCl 300 MG 2-11 le} n HCl 300 00:00: MG 00 Clindamycin Clindamycin 2019-0 No 1{capsu TID HCl 300 MG HCl 300 MG 2-11 le} 00:00: 00 Clindamycin Clindamycin 2019-0 No 1{capsu TID Clindamyci HCl 300 MG HCl 300 MG 2-11 le} n HCl 300 00:00: MG 00 Clindamycin Clindamycin 2019-0 No 1{capsu TID Clindamyci HCl 300 MG HCl 300 MG 2-11 le} n HCl 300 00:00: MG 00 Clindamycin Clindamycin 2019-0 No 1{capsu TID Clindamyci HCl 300 MG HCl 300 MG 2-11 le} n HCl 300 00:00: MG 00 Clindamycin Clindamycin 2019-0 No 1{capsu TID Clindamyci HCl 300 MG HCl 300 MG 2-11 le} n HCl 300 00:00: MG 00 Clindamycin Clindamycin 2019-0 No 1{capsu TID Clindamyci HCl 300 MG HCl 300 MG 2-11 le} n HCl 300 00:00: MG 00 Clindamycin Clindamycin 2019-0 No 1{capsu TID Clindamyci HCl 300 MG HCl 300 MG 2-11 le} n HCl 300 00:00: MG 00 Clindamycin Clindamycin 2019-0 No 1{capsu TID Clindamyci HCl 300 MG HCl 300 MG 2-11 le} n HCl 300 00:00: MG 00 Clindamycin Clindamycin 2019-0 No 1{capsu TID Clindamyci HCl 300 MG HCl 300 MG 2-11 le} n HCl 300 00:00: MG 00 Clindamycin Clindamycin 2019-0 No 1{capsu TID Clindamyci HCl 300 MG HCl 300 MG 2-11 le} n HCl 300 00:00: MG 00 Clindamycin Clindamycin 2019-0 No 1{capsu TID Clindamyci HCl 300 MG HCl 300 MG 2-11 le} n HCl 300 00:00: MG 00 One Touch One Touch 2017-09 2020- No Na Guy as Common Ultra Test Ultra Test 11-25 directed Spirit Strips Strips 00:00: 00:00 - CHI 00 :00 [facility] montekast 0 Yes 10mg Take 10 mg [facility] (SINGULAIR) 4-30 by mouth Erica ege 4 MG 00:00: daily. of chewable 00 Medicin tablet e Flonase Flonase 2017-0 Yes Na Guy 2 spray in Common 4-30 each Spirit 00:00: nostril - CHI 00 [facility] montelukast 0 Yes 10mg QD Take [address] (SINGULAIR) 4-30 by mouth Luke s 4 MG 00:00: daily. Medical chewable 00 [place] tablet Kenalog Kenalog 0 No 40mg Common (Triamcinol (Triamcinol 4-03 S pirit one) one) 00:00: - CHI 00 [facility] Kenalog Kenalog 2017-0 No 40mg Common (Triamcinol (Triamcinol 4-03 S pirit one) one) 00:00: - CHI 00 [facility] Kenalog Kenalog 2017-0 No 40mg Common (Triamcinol (Triamcinol 4-03 S pirit one) one) 00:00: - CHI 00 [facility] Kenalog Kenalog 2017-0 No 40mg Common (Triamcinol (Triamcinol 4-03 S pirit one) one) 00:00: - CHI 00 [facility] Kenalog Kenalog 2018-0 No 40mg Common (Triamcinol (Triamcinol 4-03 S pirit one) one) 00:00: - CHI 00 [facility] Kenalog Kenalog 2018-0 No 40mg Common (Triamcinol (Triamcinol 4-03 S pirit one) one) 00:00: - CHI 00 [facility] Kenalog Kenalog 2018-0 No 40mg Common (Triamcinol (Triamcinol 4-03 S pirit one) one) 00:00: - CHI 00 [facility] Kenalog Kenalog 2018-0 No 40mg Common (Triamcinol (Triamcinol 4-03 S pirit one) one) 00:00: - CHI 00 [facility] Kenalog Kenalog 2018-0 No 40mg Common (Triamcinol (Triamcinol 4-03 S pirit one) one) 00:00: - CHI 00 [facility] amlodipine 2014-09 Yes 10mg Take 10 mg [facility] (NORVASC) 2-04 by mouth Colleg e 10 MG 00:00: daily. of tablet 00 Medicin e Nebivolol 2014-09 Yes 10mg Take 10 mg [facility] HCl 10 MG 2-04 by mouth Colleg e TABS 00:00: daily. of 00 Medicin e FreeStyle FreeStyle Yes Na Guy as Co mmon Ishmael 14 Ishmael 14 directed Spi rit Day Sensor Day Sensor - C HI [facility] Singulair Singulair Yes Na Guy 1 tablet Common in the [facility] evening [facility] Lyrica Lyrica Yes Na Guy 1 capsule Com mon [facility] Jardiance Jardiance Yes Na Guy 1 tablet Common [facility] Amlodipine Amlodipine Yes Na Guy 1 tablet Common Besylate Besylate [facility] NovoLog NovoLog Yes Na Guy as Common Flexpen Flexpen directed [facility] t [facility] Aspir-Low Aspir-Low Yes Na Guy 1 tablet Common [facility] Metoprolol Metoprolol Yes Na Guy 1 tablet Common Tartrate Tartrate with food Sp filomena - [facility] OneTouch OneTouch Yes Na Guy USE TO Co mmon Ultra Test Ultra Test CHECK Sp filomena GLUCOSE - TWICE A DAY IN [facility] Losartan Losartan Yes Na Guy 1 tablet Common [facility] Tresiba Tresiba Yes Na Guy 65 units Co mmon FlexTouch FlexTouch in AM and Spirit 55 units - CHI in PM and St titrate up [facility] 2 units Medical every 3 Center days until FBG less than 100 ( max of 150 U daily) Humalog Humalog Yes Na Guy 4 units Com mon KwikPen KwikPen before [facility] meals [facility] BD Pen BD Pen Yes Na Guy as Common Needle Myrtle Needle Myrtle directed [facility] U/F U/F - [facility] Atorvastati Atorvastati Yes Na Guy 1 tablet Common n Calcium n Calcium Spiri [facility] Amlodipine Amlodipine Yes Na Guy 1 tablet Common Besylate Besylate [facility] Losartan Losartan Yes Na Guy 1 tablet Common Potassium Potassium Spiri [facility] Tresiba Tresiba No QD Tresiba FlexTouch FlexTouch FlexTouch 200 UNIT/ML 200 UNIT/ML 200 UNIT/ML Lyrica 75 Lyrica 75 No 1{capsu BID Lyrica 75 MG MG le} MG amLODIPine amLODIPine No amLODIPine Besylate 10 Besylate 10 Besylate MG MG 10 MG Losartan Losartan No Losartan Potassium Potassium Potassium 25 MG 25 MG 25 MG HumaLOG HumaLOG No TID HumaLOG KwikPen 100 KwikPen 100 KwikPen UNIT/ML UNIT/ML 100 UNIT/ML Losartan Losartan No Losartan Potassium Potassium Potassium 25 MG 25 MG 25 MG NovoLOG NovoLOG No NovoLOG FlexPen 100 FlexPen 100 FlexPen UNIT/ML UNIT/ML 100 UNIT/ML Crestor 40 Crestor 40 No 1{table QD Crestor 40 MG MG t} MG One Touch One Touch No BID One Touch Ultra Test Ultra Test Ultra Test Strips 1 Strips 1 Strips 1 OneTouch OneTouch No OneTouch Ultra Test Ultra Test Ultra Test - - - CeleBREX CeleBREX No 1{capsu BID CeleBREX 100 MG 100 MG le_with 100 MG _food} Singulair Singulair No 1{table QD Singulair 10 MG 10 MG t_in_th 10 MG e_eveni ng} Rosuvastati Rosuvastati No Rosuvastat n Calcium n Calcium in Calcium 40 MG 40 MG 40 MG Metoprolol Metoprolol No Metoprolol Tartrate Tartrate Tartrate 100 MG 100 MG 100 MG Flonase 50 Flonase 50 No 2{spray QD Flonase 50 MCG/ACT MCG/ACT _in_eac MCG/ACT h_nostr il} Lyrica 75 Lyrica 75 No 1{capsu BID Lyrica 75 MG MG le} MG One Touch One Touch No BID One Touch Ultra Test Ultra Test Ultra Test Strips 1 Strips 1 Strips 1 Rosuvastati Rosuvastati No Rosuvastat n Calcium n Calcium in Calcium 40 MG 40 MG 40 MG HumaLOG HumaLOG No TID HumaLOG KwikPen 100 KwikPen 100 KwikPen UNIT/ML UNIT/ML 100 UNIT/ML Metoprolol Metoprolol No Metoprolol Tartrate Tartrate Tartrate 100 MG 100 MG 100 MG amLODIPine amLODIPine No amLODIPine Besylate 10 Besylate 10 Besylate MG MG 10 MG Flonase 50 Flonase 50 No 2{spray QD Flonase 50 MCG/ACT MCG/ACT _in_eac MCG/ACT h_nostr il} Crestor 40 Crestor 40 No 1{table QD Crestor 40 MG MG t} MG Singulair Singulair No 1{table QD Singulair 10 MG 10 MG t_in_th 10 MG e_eveni ng} Ketoconazol Ketoconazol No Ketoconazo e 2 % e 2 % le 2 % Losartan Losartan No Losartan Potassium Potassium Potassium 25 MG 25 MG 25 MG Jardiance Jardiance No 1{table QD Jardiance 25 MG 25 MG t} 25 MG amLODIPine amLODIPine No 1{table QD amLODIPine Besylate 10 Besylate 10 t} Besylate MG MG 10 MG Tresiba Tresiba No QD Tresiba FlexTouch FlexTouch FlexTouch 200 UNIT/ML 200 UNIT/ML 200 UNIT/ML Jardiance Jardiance No 1{table QD Jardiance 25 MG 25 MG t} 25 MG OneTouch OneTouch No OneTouch Ultra Test Ultra Test Ultra Test - - - Aspir-Low Aspir-Low No 1{table QD Aspir-Low 81 MG 81 MG t} 81 MG CeleBREX CeleBREX No 1{capsu BID CeleBREX 100 MG 100 MG le_with 100 MG _food} Losartan Losartan No Losartan Potassium Potassium Potassium 25 MG 25 MG 25 MG BD Pen BD Pen No BID BD Pen Needle Myrtle Needle Myrtle Needle U/F 32G X 4 U/F 32G X 4 Myrtle U/F MM MM 32G X 4 MM FreeStyle FreeStyle No QD FreeStyle Ishmael 14 Ishmael 14 Ishmael 14 Day Sensor Day Sensor Day Sensor - - - Metoprolol Metoprolol No 1{table BID Metoprolol Tartrate Tartrate t_with_ Tartrate 100 MG 100 MG food} 100 MG NovoLOG NovoLOG No NovoLOG FlexPen 100 FlexPen 100 FlexPen UNIT/ML UNIT/ML 100 UNIT/ML Lyrica 75 Lyrica 75 No 1{capsu BID Lyrica 75 MG MG le} MG Jardiance Jardiance No 1{table QD Jardiance 25 MG 25 MG t} 25 MG Azithromyci Azithromyci No QD Azithromyc n 250 MG n 250 MG in 250 MG Ketoconazol Ketoconazol No Ketoconazo e 2 % e 2 % le 2 % CeleBREX CeleBREX No 1{capsu BID CeleBREX 100 MG 100 MG le_with 100 MG _food} Famotidine Famotidine No 1{table BID Famotidine 20 MG 20 MG t} 20 MG Flonase 50 Flonase 50 No 2{spray QD Flonase 50 MCG/ACT MCG/ACT _in_eac MCG/ACT h_nostr il} Lyrica 75 Lyrica 75 No 1{capsu BID Lyrica 75 MG MG le} MG Losartan Losartan No Losartan Potassium Potassium Potassium 25 MG 25 MG 25 MG Rosuvastati Rosuvastati No Rosuvastat n Calcium n Calcium in Calcium 40 MG 40 MG 40 MG NovoLOG NovoLOG No NovoLOG FlexPen 100 FlexPen 100 FlexPen UNIT/ML UNIT/ML 100 UNIT/ML Singulair Singulair No 1{table QD Singulair 10 MG 10 MG t_in_th 10 MG e_eveni ng} Metoprolol Metoprolol No Metoprolol Tartrate Tartrate Tartrate 100 MG 100 MG 100 MG amLODIPine amLODIPine No 1{table QD amLODIPine Besylate 10 Besylate 10 t} Besylate MG MG 10 MG BD Pen BD Pen No BID BD Pen Needle Myrtle Needle Myrtle Needle U/F 32G X 4 U/F 32G X 4 Myrtle U/F MM MM 32G X 4 MM Aspir-Low Aspir-Low No 1{table QD Aspir-Low 81 MG 81 MG t} 81 MG Metoprolol Metoprolol No 1{table BID Metoprolol Tartrate Tartrate t_with_ Tartrate 100 MG 100 MG food} 100 MG Jardiance Jardiance No 1{table QD Jardiance 25 MG 25 MG t} 25 MG Albuterol Albuterol No 2{puffs Albuterol Sulfate HFA Sulfate HFA } Sulfate 108 (90 108 (90 HFA 108 Base) Base) (90 Base) MCG/ACT MCG/ACT MCG/ACT predniSONE predniSONE No QD predniSONE 10 MG 10 MG 10 MG Losartan Losartan No Losartan Potassium Potassium Potassium 25 MG 25 MG 25 MG HumaLOG HumaLOG No TID HumaLOG KwikPen 100 KwikPen 100 KwikPen UNIT/ML UNIT/ML 100 UNIT/ML Tresiba Tresiba No QD Tresiba FlexTouch FlexTouch FlexTouch 200 UNIT/ML 200 UNIT/ML 200 UNIT/ML Crestor 40 Crestor 40 No 1{table QD Crestor 40 MG MG t} MG OneTouch OneTouch No OneTouch Ultra Test Ultra Test Ultra Test - - - One Touch One Touch No BID One Touch Ultra Test Ultra Test Ultra Test Strips 1 Strips 1 Strips 1 FreeStyle FreeStyle No QD FreeStyle Ishmael 14 Ishmael 14 Ishmael 14 Day Sensor Day Sensor Day Sensor - - - amLODIPine amLODIPine No amLODIPine Besylate 10 Besylate 10 Besylate MG MG 10 MG Jardiance Jardiance No 1{table QD Jardiance 25 MG 25 MG t} 25 MG Azithromyci Azithromyci No QD Azithromyc n 250 MG n 250 MG in 250 MG Ketoconazol Ketoconazol No Ketoconazo e 2 % e 2 % le 2 % CeleBREX CeleBREX No 1{capsu BID CeleBREX 100 MG 100 MG le_with 100 MG _food} Famotidine Famotidine No 1{table BID Famotidine 20 MG 20 MG t} 20 MG Flonase 50 Flonase 50 No 2{spray QD Flonase 50 MCG/ACT MCG/ACT _in_eac MCG/ACT h_nostr il} Lyrica 75 Lyrica 75 No 1{capsu BID Lyrica 75 MG MG le} MG Losartan Losartan No Losartan Potassium Potassium Potassium 25 MG 25 MG 25 MG Rosuvastati Rosuvastati No Rosuvastat n Calcium n Calcium in Calcium 40 MG 40 MG 40 MG NovoLOG NovoLOG No NovoLOG FlexPen 100 FlexPen 100 FlexPen UNIT/ML UNIT/ML 100 UNIT/ML Singulair Singulair No 1{table QD Singulair 10 MG 10 MG t_in_th 10 MG e_eveni ng} Metoprolol Metoprolol No Metoprolol Tartrate Tartrate Tartrate 100 MG 100 MG 100 MG amLODIPine amLODIPine No 1{table QD amLODIPine Besylate 10 Besylate 10 t} Besylate MG MG 10 MG BD Pen BD Pen No BID BD Pen Needle Myrtle Needle Myrtle Needle U/F 32G X 4 U/F 32G X 4 Myrtle U/F MM MM 32G X 4 MM Aspir-Low Aspir-Low No 1{table QD Aspir-Low 81 MG 81 MG t} 81 MG Metoprolol Metoprolol No 1{table BID Metoprolol Tartrate Tartrate t_with_ Tartrate 100 MG 100 MG food} 100 MG Jardiance Jardiance No 1{table QD Jardiance 25 MG 25 MG t} 25 MG Albuterol Albuterol No 2{puffs Albuterol Sulfate HFA Sulfate HFA } Sulfate 108 (90 108 (90 HFA 108 Base) Base) (90 Base) MCG/ACT MCG/ACT MCG/ACT predniSONE predniSONE No QD predniSONE 10 MG 10 MG 10 MG Losartan Losartan No Losartan Potassium Potassium Potassium 25 MG 25 MG 25 MG HumaLOG HumaLOG No TID HumaLOG KwikPen 100 KwikPen 100 KwikPen UNIT/ML UNIT/ML 100 UNIT/ML Tresiba Tresiba No QD Tresiba FlexTouch FlexTouch FlexTouch 200 UNIT/ML 200 UNIT/ML 200 UNIT/ML Crestor 40 Crestor 40 No 1{table QD Crestor 40 MG MG t} MG OneTouch OneTouch No OneTouch Ultra Test Ultra Test Ultra Test - - - One Touch One Touch No BID One Touch Ultra Test Ultra Test Ultra Test Strips 1 Strips 1 Strips 1 FreeStyle FreeStyle No QD FreeStyle Ishmael 14 Ishmael 14 Ishmael 14 Day Sensor Day Sensor Day Sensor - - - amLODIPine amLODIPine No amLODIPine Besylate 10 Besylate 10 Besylate MG MG 10 MG Jardiance Jardiance No 1{table QD Jardiance 25 MG 25 MG t} 25 MG Azithromyci Azithromyci No QD Azithromyc n 250 MG n 250 MG in 250 MG Ketoconazol Ketoconazol No Ketoconazo e 2 % e 2 % le 2 % CeleBREX CeleBREX No 1{capsu BID CeleBREX 100 MG 100 MG le_with 100 MG _food} Famotidine Famotidine No 1{table BID Famotidine 20 MG 20 MG t} 20 MG Flonase 50 Flonase 50 No 2{spray QD Flonase 50 MCG/ACT MCG/ACT _in_eac MCG/ACT h_nostr il} Lyrica 75 Lyrica 75 No 1{capsu BID Lyrica 75 MG MG le} MG Losartan Losartan No Losartan Potassium Potassium Potassium 25 MG 25 MG 25 MG Rosuvastati Rosuvastati No Rosuvastat n Calcium n Calcium in Calcium 40 MG 40 MG 40 MG NovoLOG NovoLOG No NovoLOG FlexPen 100 FlexPen 100 FlexPen UNIT/ML UNIT/ML 100 UNIT/ML Singulair Singulair No 1{table QD Singulair 10 MG 10 MG t_in_th 10 MG e_eveni ng} Metoprolol Metoprolol No Metoprolol Tartrate Tartrate Tartrate 100 MG 100 MG 100 MG amLODIPine amLODIPine No 1{table QD amLODIPine Besylate 10 Besylate 10 t} Besylate MG MG 10 MG BD Pen BD Pen No BID BD Pen Needle Myrtle Needle Myrtle Needle U/F 32G X 4 U/F 32G X 4 Myrtle U/F MM MM 32G X 4 MM Aspir-Low Aspir-Low No 1{table QD Aspir-Low 81 MG 81 MG t} 81 MG Metoprolol Metoprolol No 1{table BID Metoprolol Tartrate Tartrate t_with_ Tartrate 100 MG 100 MG food} 100 MG Jardiance Jardiance No 1{table QD Jardiance 25 MG 25 MG t} 25 MG Albuterol Albuterol No 2{puffs Albuterol Sulfate HFA Sulfate HFA } Sulfate 108 (90 108 (90 HFA 108 Base) Base) (90 Base) MCG/ACT MCG/ACT MCG/ACT predniSONE predniSONE No QD predniSONE 10 MG 10 MG 10 MG Losartan Losartan No Losartan Potassium Potassium Potassium 25 MG 25 MG 25 MG HumaLOG HumaLOG No TID HumaLOG KwikPen 100 KwikPen 100 KwikPen UNIT/ML UNIT/ML 100 UNIT/ML Tresiba Tresiba No QD Tresiba FlexTouch FlexTouch FlexTouch 200 UNIT/ML 200 UNIT/ML 200 UNIT/ML Crestor 40 Crestor 40 No 1{table QD Crestor 40 MG MG t} MG OneTouch OneTouch No OneTouch Ultra Test Ultra Test Ultra Test - - - One Touch One Touch No BID One Touch Ultra Test Ultra Test Ultra Test Strips 1 Strips 1 Strips 1 FreeStyle FreeStyle No QD FreeStyle Ishmael 14 Ishmael 14 Ishmael 14 Day Sensor Day Sensor Day Sensor - - - amLODIPine amLODIPine No amLODIPine Besylate 10 Besylate 10 Besylate MG MG 10 MG Lyrica 75 Lyrica 75 No 1{capsu BID MG MG le} Losartan Losartan No Potassium Potassium 25 MG 25 MG Jardiance Jardiance No 1{table QD 25 MG 25 MG t} Azithromyci Azithromyci No QD n 250 MG n 250 MG NovoLOG NovoLOG No FlexPen 100 FlexPen 100 UNIT/ML UNIT/ML Singulair Singulair No 1{table QD 10 MG 10 MG t_in_th e_eveni ng} Famotidine Famotidine No 1{table BID 20 MG 20 MG t} Flonase 50 Flonase 50 No 2{spray QD MCG/ACT MCG/ACT _in_eac h_nostr il} Metoprolol Metoprolol No Tartrate Tartrate 100 MG 100 MG Albuterol Albuterol No 2{puffs Sulfate HFA Sulfate HFA } 108 (90 108 (90 Base) Base) MCG/ACT MCG/ACT Rosuvastati Rosuvastati No n Calcium n Calcium 40 MG 40 MG Losartan Losartan No Potassium Potassium 25 MG 25 MG Jardiance Jardiance No 1{table QD 25 MG 25 MG t} amLODIPine amLODIPine No 1{table QD Besylate 10 Besylate 10 t} MG MG HumaLOG HumaLOG No TID KwikPen 100 KwikPen 100 UNIT/ML UNIT/ML Tresiba Tresiba No QD FlexTouch FlexTouch 200 UNIT/ML 200 UNIT/ML predniSONE predniSONE No QD 10 MG 10 MG Crestor 40 Crestor 40 No 1{table QD MG MG t} Metoprolol Metoprolol No 1{table BID Tartrate Tartrate t_with_ 100 MG 100 MG food} CeleBREX CeleBREX No 1{capsu BID 100 MG 100 MG le_with _food} Ketoconazol Ketoconazol No e 2 % e 2 % BD Pen BD Pen No BID Needle Myrtle Needle Myrtle U/F 32G X 4 U/F 32G X 4 MM MM Aspir-Low Aspir-Low No 1{table QD 81 MG 81 MG t} FreeStyle FreeStyle No QD Ishmael 14 Ishmael 14 Day Sensor Day Sensor - - OneTouch OneTouch No Ultra Test Ultra Test - - One Touch One Touch No BID Ultra Test Ultra Test Strips 1 Strips 1 amLODIPine amLODIPine No Besylate 10 Besylate 10 MG MG One Touch One Touch No BID One Touch Ultra Test Ultra Test Ultra Test Strips 1 Strips 1 Strips 1 amLODIPine amLODIPine No 1{table QD amLODIPine Besylate 10 Besylate 10 t} Besylate MG MG 10 MG Azithromyci Azithromyci No QD Azithromyc n 250 MG n 250 MG in 250 MG Tresiba Tresiba No QD Tresiba FlexTouch FlexTouch FlexTouch 200 UNIT/ML 200 UNIT/ML 200 UNIT/ML Crestor 40 Crestor 40 No 1{table QD Crestor 40 MG MG t} MG predniSONE predniSONE No QD predniSONE 10 MG 10 MG 10 MG FreeStyle FreeStyle No QD FreeStyle Ishmael 14 Ishmael 14 Ishmael 14 Day Sensor Day Sensor Day Sensor - - - HumaLOG HumaLOG No TID HumaLOG KwikPen 100 KwikPen 100 KwikPen UNIT/ML UNIT/ML 100 UNIT/ML Ketoconazol Ketoconazol No Ketoconazo e 2 % e 2 % le 2 % OneTouch OneTouch No OneTouch Ultra Test Ultra Test Ultra Test - - - Losartan Losartan No QD Losartan Potassium Potassium Potassium 25 MG 25 MG 25 MG Jardiance Jardiance No 1{table QD Jardiance 25 MG 25 MG t} 25 MG amLODIPine amLODIPine No amLODIPine Besylate 10 Besylate 10 Besylate MG MG 10 MG Famotidine Famotidine No 1{table BID Famotidine 20 MG 20 MG t} 20 MG Losartan Losartan No Losartan Potassium Potassium Potassium 25 MG 25 MG 25 MG Rosuvastati Rosuvastati No Rosuvastat n Calcium n Calcium in Calcium 40 MG 40 MG 40 MG Jardiance Jardiance No 1{table QD Jardiance 25 MG 25 MG t} 25 MG Metoprolol Metoprolol No Metoprolol Tartrate Tartrate Tartrate 100 MG 100 MG 100 MG CeleBREX CeleBREX No 1{capsu BID CeleBREX 100 MG 100 MG le_with 100 MG _food} Aspir-Low Aspir-Low No 1{table QD Aspir-Low 81 MG 81 MG t} 81 MG BD Pen BD Pen No BID BD Pen Needle Myrtle Needle Myrtle Needle U/F 32G X 4 U/F 32G X 4 Myrtle U/F MM MM 32G X 4 MM Albuterol Albuterol No 2{puffs Albuterol Sulfate HFA Sulfate HFA } Sulfate 108 (90 108 (90 HFA 108 Base) Base) (90 Base) MCG/ACT MCG/ACT MCG/ACT NovoLOG NovoLOG No NovoLOG FlexPen 100 FlexPen 100 FlexPen UNIT/ML UNIT/ML 100 UNIT/ML Metoprolol Metoprolol No 1{table BID Metoprolol Tartrate Tartrate t_with_ Tartrate 100 MG 100 MG food} 100 MG Flonase 50 Flonase 50 No 2{spray QD Flonase 50 MCG/ACT MCG/ACT _in_eac MCG/ACT h_nostr il} Singulair Singulair No 1{table QD Singulair 10 MG 10 MG t_in_th 10 MG e_eveni ng} Lyrica 75 Lyrica 75 No 1{capsu BID Lyrica 75 MG MG le} MG OneTouch OneTouch No OneTouch Ultra Test Ultra Test Ultra Test - - - CeleBREX CeleBREX No 1{capsu BID CeleBREX 100 MG 100 MG le_with 100 MG _food} predniSONE predniSONE No QD predniSONE 10 MG 10 MG 10 MG One Touch One Touch No BID One Touch Ultra Test Ultra Test Ultra Test Strips 1 Strips 1 Strips 1 Flonase 50 Flonase 50 No 2{spray QD Flonase 50 MCG/ACT MCG/ACT _in_eac MCG/ACT h_nostr il} Montelukast Montelukast No Montelukas Sodium 10 Sodium 10 t Sodium MG MG 10 MG Albuterol Albuterol No 2{puffs Albuterol Sulfate HFA Sulfate HFA } Sulfate 108 (90 108 (90 HFA 108 Base) Base) (90 Base) MCG/ACT MCG/ACT MCG/ACT Ketoconazol Ketoconazol No Ketoconazo e 2 % e 2 % le 2 % amLODIPine amLODIPine No amLODIPine Besylate 10 Besylate 10 Besylate MG MG 10 MG Lyrica 75 Lyrica 75 No 1{capsu BID Lyrica 75 MG MG le} MG Azithromyci Azithromyci No QD Azithromyc n 250 MG n 250 MG in 250 MG Jardiance Jardiance No 1{table QD Jardiance 25 MG 25 MG t} 25 MG HumaLOG HumaLOG No TID HumaLOG KwikPen 100 KwikPen 100 KwikPen UNIT/ML UNIT/ML 100 UNIT/ML FreeStyle FreeStyle No QD FreeStyle Ishmael 14 Ishmael 14 Ishmael 14 Day Sensor Day Sensor Day Sensor - - - Tresiba Tresiba No QD Tresiba FlexTouch FlexTouch FlexTouch 200 UNIT/ML 200 UNIT/ML 200 UNIT/ML NovoLOG NovoLOG No NovoLOG FlexPen 100 FlexPen 100 FlexPen UNIT/ML UNIT/ML 100 UNIT/ML Aspir-Low Aspir-Low No 1{table QD Aspir-Low 81 MG 81 MG t} 81 MG Metoprolol Metoprolol No 1{table BID Metoprolol Tartrate Tartrate t_with_ Tartrate 100 MG 100 MG food} 100 MG Famotidine Famotidine No 1{table BID Famotidine 20 MG 20 MG t} 20 MG Jardiance Jardiance No 1{table QD Jardiance 25 MG 25 MG t} 25 MG Crestor 40 Crestor 40 No 1{table QD Crestor 40 MG MG t} MG BD Pen BD Pen No BID BD Pen Needle Myrtle Needle Myrtle Needle U/F 32G X 4 U/F 32G X 4 Myrtle U/F MM MM 32G X 4 MM amLODIPine amLODIPine No 1{table QD amLODIPine Besylate 10 Besylate 10 t} Besylate MG MG 10 MG Metoprolol Metoprolol No Metoprolol Tartrate Tartrate Tartrate 100 MG 100 MG 100 MG Losartan Losartan No Losartan Potassium Potassium Potassium 25 MG 25 MG 25 MG Rosuvastati Rosuvastati No Rosuvastat n Calcium n Calcium in Calcium 40 MG 40 MG 40 MG Losartan Losartan No QD Losartan Potassium Potassium Potassium 25 MG 25 MG 25 MG Lyrica 75 Lyrica 75 No 1{capsu BID Lyrica 75 MG MG le} MG Losartan Losartan No QD Losartan Potassium Potassium Potassium 25 MG 25 MG 25 MG Jardiance Jardiance No 1{table QD Jardiance 25 MG 25 MG t} 25 MG Losartan Losartan No Losartan Potassium Potassium Potassium 25 MG 25 MG 25 MG amLODIPine amLODIPine No 1{table QD amLODIPine Besylate 10 Besylate 10 t} Besylate MG MG 10 MG One Touch One Touch No BID One Touch Ultra Test Ultra Test Ultra Test Strips 1 Strips 1 Strips 1 Metoprolol Metoprolol No Metoprolol Tartrate Tartrate Tartrate 100 MG 100 MG 100 MG Tresiba Tresiba No QD Tresiba FlexTouch FlexTouch FlexTouch 200 UNIT/ML 200 UNIT/ML 200 UNIT/ML Albuterol Albuterol No 2{puffs Albuterol Sulfate HFA Sulfate HFA } Sulfate 108 (90 108 (90 HFA 108 Base) Base) (90 Base) MCG/ACT MCG/ACT MCG/ACT Metoprolol Metoprolol No 1{table BID Metoprolol Tartrate Tartrate t_with_ Tartrate 100 MG 100 MG food} 100 MG BD Pen BD Pen No BID BD Pen Needle Myrtle Needle Myrtle Needle U/F 32G X 4 U/F 32G X 4 Myrtle U/F MM MM 32G X 4 MM OneTouch OneTouch No OneTouch Ultra Test Ultra Test Ultra Test - - - Azelastine Azelastine No Azelastine HCl 0.05 % HCl 0.05 % HCl 0.05 % Rosuvastati Rosuvastati No Rosuvastat n Calcium n Calcium in Calcium 40 MG 40 MG 40 MG HumaLOG HumaLOG No TID HumaLOG KwikPen 100 KwikPen 100 KwikPen UNIT/ML UNIT/ML 100 UNIT/ML Flonase 50 Flonase 50 No 2{spray QD Flonase 50 MCG/ACT MCG/ACT _in_eac MCG/ACT h_nostr il} NovoLOG NovoLOG No NovoLOG FlexPen 100 FlexPen 100 FlexPen UNIT/ML UNIT/ML 100 UNIT/ML Montelukast Montelukast No Montelukas Sodium 10 Sodium 10 t Sodium MG MG 10 MG Crestor 40 Crestor 40 No 1{table QD Crestor 40 MG MG t} MG Aspir-Low Aspir-Low No 1{table QD Aspir-Low 81 MG 81 MG t} 81 MG predniSONE predniSONE No QD predniSONE 10 MG 10 MG 10 MG Ketoconazol Ketoconazol No Ketoconazo e 2 % e 2 % le 2 % Famotidine Famotidine No 1{table BID Famotidine 20 MG 20 MG t} 20 MG Azithromyci Azithromyci No QD Azithromyc n 250 MG n 250 MG in 250 MG FreeStyle FreeStyle No QD FreeStyle Ishmael 14 Ishmael 14 Ishmael 14 Day Sensor Day Sensor Day Sensor - - - CeleBREX CeleBREX No 1{capsu BID CeleBREX 100 MG 100 MG le_with 100 MG _food} Lyrica 75 Lyrica 75 No 1{capsu BID Lyrica 75 MG MG le} MG Azelastine Azelastine No 1{drop_ Azelastine HCl 0.05 % HCl 0.05 % into_af HCl 0.05 % fected_ eye} Losartan Losartan No QD Losartan Potassium Potassium Potassium 25 MG 25 MG 25 MG Jardiance Jardiance No 1{table QD Jardiance 25 MG 25 MG t} 25 MG Losartan Losartan No Losartan Potassium Potassium Potassium 25 MG 25 MG 25 MG amLODIPine amLODIPine No 1{table QD amLODIPine Besylate 10 Besylate 10 t} Besylate MG MG 10 MG One Touch One Touch No BID One Touch Ultra Test Ultra Test Ultra Test Strips 1 Strips 1 Strips 1 Metoprolol Metoprolol No Metoprolol Tartrate Tartrate Tartrate 100 MG 100 MG 100 MG Tresiba Tresiba No QD Tresiba FlexTouch FlexTouch FlexTouch 200 UNIT/ML 200 UNIT/ML 200 UNIT/ML Albuterol Albuterol No 2{puffs Albuterol Sulfate HFA Sulfate HFA } Sulfate 108 (90 108 (90 HFA 108 Base) Base) (90 Base) MCG/ACT MCG/ACT MCG/ACT Metoprolol Metoprolol No 1{table BID Metoprolol Tartrate Tartrate t_with_ Tartrate 100 MG 100 MG food} 100 MG BD Pen BD Pen No BID BD Pen Needle Myrtle Needle Myrtle Needle U/F 32G X 4 U/F 32G X 4 Myrtle U/F MM MM 32G X 4 MM OneTouch OneTouch No OneTouch Ultra Test Ultra Test Ultra Test - - - Azelastine Azelastine No Azelastine HCl 0.05 % HCl 0.05 % HCl 0.05 % Rosuvastati Rosuvastati No Rosuvastat n Calcium n Calcium in Calcium 40 MG 40 MG 40 MG HumaLOG HumaLOG No TID HumaLOG KwikPen 100 KwikPen 100 KwikPen UNIT/ML UNIT/ML 100 UNIT/ML Flonase 50 Flonase 50 No 2{spray QD Flonase 50 MCG/ACT MCG/ACT _in_eac MCG/ACT h_nostr il} NovoLOG NovoLOG No NovoLOG FlexPen 100 FlexPen 100 FlexPen UNIT/ML UNIT/ML 100 UNIT/ML Montelukast Montelukast No Montelukas Sodium 10 Sodium 10 t Sodium MG MG 10 MG Crestor 40 Crestor 40 No 1{table QD Crestor 40 MG MG t} MG Aspir-Low Aspir-Low No 1{table QD Aspir-Low 81 MG 81 MG t} 81 MG predniSONE predniSONE No QD predniSONE 10 MG 10 MG 10 MG Ketoconazol Ketoconazol No Ketoconazo e 2 % e 2 % le 2 % Famotidine Famotidine No 1{table BID Famotidine 20 MG 20 MG t} 20 MG Azithromyci Azithromyci No QD Azithromyc n 250 MG n 250 MG in 250 MG FreeStyle FreeStyle No QD FreeStyle Ishmael 14 Ishmael 14 Ishmael 14 Day Sensor Day Sensor Day Sensor - - - CeleBREX CeleBREX No 1{capsu BID CeleBREX 100 MG 100 MG le_with 100 MG _food} Lyrica 75 Lyrica 75 No 1{capsu BID Lyrica 75 MG MG le} MG Azelastine Azelastine No 1{drop_ Azelastine HCl 0.05 % HCl 0.05 % into_af HCl 0.05 % fected_ eye} Albuterol Albuterol No 2{puffs Albuterol Sulfate HFA Sulfate HFA } Sulfate 108 (90 108 (90 HFA 108 Base) Base) (90 Base) MCG/ACT MCG/ACT MCG/ACT Metoprolol Metoprolol No 1{table BID Metoprolol Tartrate Tartrate t_with_ Tartrate 100 MG 100 MG food} 100 MG Losartan Losartan No QD Losartan Potassium Potassium Potassium 25 MG 25 MG 25 MG Jardiance Jardiance No 1{table QD Jardiance 25 MG 25 MG t} 25 MG OneTouch OneTouch No OneTouch Ultra Test Ultra Test Ultra Test - - - Azelastine Azelastine No Azelastine HCl 0.05 % HCl 0.05 % HCl 0.05 % Metoprolol Metoprolol No Metoprolol Tartrate Tartrate Tartrate 100 MG 100 MG 100 MG Tresiba Tresiba No QD Tresiba FlexTouch FlexTouch FlexTouch 200 UNIT/ML 200 UNIT/ML 200 UNIT/ML Montelukast Montelukast No Montelukas Sodium 10 Sodium 10 t Sodium MG MG 10 MG BD Pen BD Pen No BID BD Pen Needle Myrtle Needle Myrtle Needle U/F 32G X 4 U/F 32G X 4 Myrtle U/F MM MM 32G X 4 MM Aspir-Low Aspir-Low No 1{table QD Aspir-Low 81 MG 81 MG t} 81 MG NovoLOG NovoLOG No NovoLOG FlexPen 100 FlexPen 100 FlexPen UNIT/ML UNIT/ML 100 UNIT/ML predniSONE predniSONE No QD predniSONE 10 MG 10 MG 10 MG Ketoconazol Ketoconazol No Ketoconazo e 2 % e 2 % le 2 % Crestor 40 Crestor 40 No 1{table QD Crestor 40 MG MG t} MG Famotidine Famotidine No 1{table BID Famotidine 20 MG 20 MG t} 20 MG HumaLOG HumaLOG No TID HumaLOG KwikPen 100 KwikPen 100 KwikPen UNIT/ML UNIT/ML 100 UNIT/ML amLODIPine amLODIPine No 1{table QD amLODIPine Besylate 10 Besylate 10 t} Besylate MG MG 10 MG One Touch One Touch No BID One Touch Ultra Test Ultra Test Ultra Test Strips 1 Strips 1 Strips 1 Flonase 50 Flonase 50 No 2{spray QD Flonase 50 MCG/ACT MCG/ACT _in_eac MCG/ACT h_nostr il} Losartan Losartan No Losartan Potassium Potassium Potassium 25 MG 25 MG 25 MG Rosuvastati Rosuvastati No Rosuvastat n Calcium n Calcium in Calcium 40 MG 40 MG 40 MG CeleBREX CeleBREX No 1{capsu BID CeleBREX 100 MG 100 MG le_with 100 MG _food} Azithromyci Azithromyci No QD Azithromyc n 250 MG n 250 MG in 250 MG FreeStyle FreeStyle No QD FreeStyle Ishmael 14 Ishmael 14 Ishmael 14 Day Sensor Day Sensor Day Sensor - - - Lyrica 75 Lyrica 75 No 1{capsu BID Lyrica 75 MG MG le} MG Metoprolol Metoprolol No Metoprolol Tartrate Tartrate Tartrate 100 MG 100 MG 100 MG Rosuvastati Rosuvastati No Rosuvastat n Calcium n Calcium in Calcium 40 MG 40 MG 40 MG Albuterol Albuterol No 2{puffs Albuterol Sulfate HFA Sulfate HFA } Sulfate 108 (90 108 (90 HFA 108 Base) Base) (90 Base) MCG/ACT MCG/ACT MCG/ACT Tresiba Tresiba No QD Tresiba FlexTouch FlexTouch FlexTouch 200 UNIT/ML 200 UNIT/ML 200 UNIT/ML Montelukast Montelukast No Montelukas Sodium 10 Sodium 10 t Sodium MG MG 10 MG BD Pen BD Pen No BID BD Pen Needle Myrtle Needle Myrtle Needle U/F 32G X 4 U/F 32G X 4 Myrtle U/F MM MM 32G X 4 MM OneTouch OneTouch No OneTouch Ultra Test Ultra Test Ultra Test - - - Azelastine Azelastine No Azelastine HCl 0.05 % HCl 0.05 % HCl 0.05 % Aspir-Low Aspir-Low No 1{table QD Aspir-Low 81 MG 81 MG t} 81 MG HumaLOG HumaLOG No TID HumaLOG KwikPen 100 KwikPen 100 KwikPen UNIT/ML UNIT/ML 100 UNIT/ML One Touch One Touch No BID One Touch Ultra Test Ultra Test Ultra Test Strips 1 Strips 1 Strips 1 NovoLOG NovoLOG No NovoLOG FlexPen 100 FlexPen 100 FlexPen UNIT/ML UNIT/ML 100 UNIT/ML Flonase 50 Flonase 50 No 2{spray QD Flonase 50 MCG/ACT MCG/ACT _in_eac MCG/ACT h_nostr il} Losartan Losartan No Losartan Potassium Potassium Potassium 25 MG 25 MG 25 MG Jardiance Jardiance No 1{table QD Jardiance 25 MG 25 MG t} 25 MG Ketoconazol Ketoconazol No Ketoconazo e 2 % e 2 % le 2 % amLODIPine amLODIPine No 1{table QD amLODIPine Besylate 10 Besylate 10 t} Besylate MG MG 10 MG Metoprolol Metoprolol No 1{table BID Metoprolol Tartrate Tartrate t_with_ Tartrate 100 MG 100 MG food} 100 MG Famotidine Famotidine No 1{table BID Famotidine 20 MG 20 MG t} 20 MG Losartan Losartan No QD Losartan Potassium Potassium Potassium 25 MG 25 MG 25 MG predniSONE predniSONE No QD predniSONE 10 MG 10 MG 10 MG CeleBREX CeleBREX No 1{capsu BID CeleBREX 100 MG 100 MG le_with 100 MG _food} Azithromyci Azithromyci No QD Azithromyc n 250 MG n 250 MG in 250 MG FreeStyle FreeStyle No QD FreeStyle Ishmael 14 Ishmael 14 Ishmael 14 Day Sensor Day Sensor Day Sensor - - - Lyrica 75 Lyrica 75 No 1{capsu BID Lyrica 75 MG MG le} MG HumaLOG HumaLOG No TID HumaLOG KwikPen 100 KwikPen 100 KwikPen UNIT/ML UNIT/ML 100 UNIT/ML Rosuvastati Rosuvastati No Rosuvastat n Calcium n Calcium in Calcium 40 MG 40 MG 40 MG Flonase 50 Flonase 50 No 2{spray QD Flonase 50 MCG/ACT MCG/ACT _in_eac MCG/ACT h_nostr il} OneTouch OneTouch No OneTouch Ultra Test Ultra Test Ultra Test - - - Lyrica 75 Lyrica 75 No 1{capsu BID Lyrica 75 MG MG le} MG NovoLOG NovoLOG No NovoLOG FlexPen 100 FlexPen 100 FlexPen UNIT/ML UNIT/ML 100 UNIT/ML Tresiba Tresiba No QD Tresiba FlexTouch FlexTouch FlexTouch 200 UNIT/ML 200 UNIT/ML 200 UNIT/ML BD Pen BD Pen No BID BD Pen Needle Myrtle Needle Myrtle Needle U/F 32G X 4 U/F 32G X 4 Myrtle U/F MM MM 32G X 4 MM Losartan Losartan No Losartan Potassium Potassium Potassium 25 MG 25 MG 25 MG Metoprolol Metoprolol No 1{table BID Metoprolol Tartrate Tartrate t_with_ Tartrate 100 MG 100 MG food} 100 MG Ketoconazol Ketoconazol No Ketoconazo e 2 % e 2 % le 2 % Montelukast Montelukast No Montelukas Sodium 10 Sodium 10 t Sodium MG MG 10 MG predniSONE predniSONE No QD predniSONE 10 MG 10 MG 10 MG Metoprolol Metoprolol No Metoprolol Tartrate Tartrate Tartrate 100 MG 100 MG 100 MG Aspir-Low Aspir-Low No 1{table QD Aspir-Low 81 MG 81 MG t} 81 MG amLODIPine amLODIPine No 1{table QD amLODIPine Besylate 10 Besylate 10 t} Besylate MG MG 10 MG Losartan Losartan No QD Losartan Potassium Potassium Potassium 25 MG 25 MG 25 MG One Touch One Touch No BID One Touch Ultra Test Ultra Test Ultra Test Strips 1 Strips 1 Strips 1 Jardiance Jardiance No 1{table QD Jardiance 25 MG 25 MG t} 25 MG Famotidine Famotidine No 1{table BID Famotidine 20 MG 20 MG t} 20 MG Crestor 40 Crestor 40 No 1{table QD Crestor 40 MG MG t} MG Albuterol Albuterol No 2{puffs Albuterol Sulfate HFA Sulfate HFA } Sulfate 108 (90 108 (90 HFA 108 Base) Base) (90 Base) MCG/ACT MCG/ACT MCG/ACT Azithromyci Azithromyci No QD Azithromyc n 250 MG n 250 MG in 250 MG FreeStyle FreeStyle No QD FreeStyle Ishmael 14 Ishmael 14 Ishmael 14 Day Sensor Day Sensor Day Sensor - - - CeleBREX CeleBREX No 1{capsu BID CeleBREX 100 MG 100 MG le_with 100 MG _food} Azelastine Azelastine No Azelastine HCl 0.05 % HCl 0.05 % HCl 0.05 % HumaLOG HumaLOG No TID HumaLOG KwikPen 100 KwikPen 100 KwikPen UNIT/ML UNIT/ML 100 UNIT/ML Rosuvastati Rosuvastati No Rosuvastat n Calcium n Calcium in Calcium 40 MG 40 MG 40 MG Flonase 50 Flonase 50 No 2{spray QD Flonase 50 MCG/ACT MCG/ACT _in_eac MCG/ACT h_nostr il} OneTouch OneTouch No OneTouch Ultra Test Ultra Test Ultra Test - - - Lyrica 75 Lyrica 75 No 1{capsu BID Lyrica 75 MG MG le} MG NovoLOG NovoLOG No NovoLOG FlexPen 100 FlexPen 100 FlexPen UNIT/ML UNIT/ML 100 UNIT/ML Tresiba Tresiba No QD Tresiba FlexTouch FlexTouch FlexTouch 200 UNIT/ML 200 UNIT/ML 200 UNIT/ML BD Pen BD Pen No BID BD Pen Needle Myrtle Needle Myrtle Needle U/F 32G X 4 U/F 32G X 4 Myrtle U/F MM MM 32G X 4 MM Losartan Losartan No Losartan Potassium Potassium Potassium 25 MG 25 MG 25 MG Metoprolol Metoprolol No 1{table BID Metoprolol Tartrate Tartrate t_with_ Tartrate 100 MG 100 MG food} 100 MG Ketoconazol Ketoconazol No Ketoconazo e 2 % e 2 % le 2 % Montelukast Montelukast No Montelukas Sodium 10 Sodium 10 t Sodium MG MG 10 MG predniSONE predniSONE No QD predniSONE 10 MG 10 MG 10 MG Metoprolol Metoprolol No Metoprolol Tartrate Tartrate Tartrate 100 MG 100 MG 100 MG Aspir-Low Aspir-Low No 1{table QD Aspir-Low 81 MG 81 MG t} 81 MG amLODIPine amLODIPine No 1{table QD amLODIPine Besylate 10 Besylate 10 t} Besylate MG MG 10 MG Losartan Losartan No QD Losartan Potassium Potassium Potassium 25 MG 25 MG 25 MG One Touch One Touch No BID One Touch Ultra Test Ultra Test Ultra Test Strips 1 Strips 1 Strips 1 Jardiance Jardiance No 1{table QD Jardiance 25 MG 25 MG t} 25 MG Famotidine Famotidine No 1{table BID Famotidine 20 MG 20 MG t} 20 MG Crestor 40 Crestor 40 No 1{table QD Crestor 40 MG MG t} MG Albuterol Albuterol No 2{puffs Albuterol Sulfate HFA Sulfate HFA } Sulfate 108 (90 108 (90 HFA 108 Base) Base) (90 Base) MCG/ACT MCG/ACT MCG/ACT Azithromyci Azithromyci No QD Azithromyc n 250 MG n 250 MG in 250 MG FreeStyle FreeStyle No QD FreeStyle Ishmael 14 Ishmael 14 Ishmael 14 Day Sensor Day Sensor Day Sensor - - - CeleBREX CeleBREX No 1{capsu BID CeleBREX 100 MG 100 MG le_with 100 MG _food} Azelastine Azelastine No Azelastine HCl 0.05 % HCl 0.05 % HCl 0.05 % HumaLOG HumaLOG No TID HumaLOG KwikPen 100 KwikPen 100 KwikPen UNIT/ML UNIT/ML 100 UNIT/ML Rosuvastati Rosuvastati No Rosuvastat n Calcium n Calcium in Calcium 40 MG 40 MG 40 MG Flonase 50 Flonase 50 No 2{spray QD Flonase 50 MCG/ACT MCG/ACT _in_eac MCG/ACT h_nostr il} OneTouch OneTouch No OneTouch Ultra Test Ultra Test Ultra Test - - - Lyrica 75 Lyrica 75 No 1{capsu BID Lyrica 75 MG MG le} MG NovoLOG NovoLOG No NovoLOG FlexPen 100 FlexPen 100 FlexPen UNIT/ML UNIT/ML 100 UNIT/ML Tresiba Tresiba No QD Tresiba FlexTouch FlexTouch FlexTouch 200 UNIT/ML 200 UNIT/ML 200 UNIT/ML BD Pen BD Pen No BID BD Pen Needle Myrtle Needle Myrtle Needle U/F 32G X 4 U/F 32G X 4 Myrtle U/F MM MM 32G X 4 MM Losartan Losartan No Losartan Potassium Potassium Potassium 25 MG 25 MG 25 MG Jardiance Jardiance No 1{table QD Jardiance 25 MG 25 MG t} 25 MG Montelukast Montelukast No Montelukas Sodium 10 Sodium 10 t Sodium MG MG 10 MG Albuterol Albuterol No 2{puffs Albuterol Sulfate HFA Sulfate HFA } Sulfate 108 (90 108 (90 HFA 108 Base) Base) (90 Base) MCG/ACT MCG/ACT MCG/ACT Azithromyci Azithromyci No QD Azithromyc n 250 MG n 250 MG in 250 MG amLODIPine amLODIPine No 1{table QD amLODIPine Besylate 10 Besylate 10 t} Besylate MG MG 10 MG Aspir-Low Aspir-Low No 1{table QD Aspir-Low 81 MG 81 MG t} 81 MG Famotidine Famotidine No 1{table BID Famotidine 20 MG 20 MG t} 20 MG Ketoconazol Ketoconazol No Ketoconazo e 2 % e 2 % le 2 % Losartan Losartan No QD Losartan Potassium Potassium Potassium 25 MG 25 MG 25 MG One Touch One Touch No BID One Touch Ultra Test Ultra Test Ultra Test Strips 1 Strips 1 Strips 1 predniSONE predniSONE No QD predniSONE 10 MG 10 MG 10 MG Crestor 40 Crestor 40 No 1{table QD Crestor 40 MG MG t} MG CeleBREX CeleBREX No 1{capsu BID CeleBREX 100 MG 100 MG le_with 100 MG _food} FreeStyle FreeStyle No QD FreeStyle Ishmael 14 Ishmael 14 Ishmael 14 Day Sensor Day Sensor Day Sensor - - - Metoprolol Metoprolol No Metoprolol Tartrate Tartrate Tartrate 100 MG 100 MG 100 MG Azelastine Azelastine No Azelastine HCl 0.05 % HCl 0.05 % HCl 0.05 % Rosuvastati Rosuvastati No Rosuvastat n Calcium n Calcium in Calcium 40 MG 40 MG 40 MG NovoLOG NovoLOG No NovoLOG FlexPen 100 FlexPen 100 FlexPen UNIT/ML UNIT/ML 100 UNIT/ML Crestor 40 Crestor 40 No 1{table QD Crestor 40 MG MG t} MG OneTouch OneTouch No OneTouch Ultra Test Ultra Test Ultra Test - - - Tresiba Tresiba No QD Tresiba FlexTouch FlexTouch FlexTouch 200 UNIT/ML 200 UNIT/ML 200 UNIT/ML HumaLOG HumaLOG No TID HumaLOG KwikPen 100 KwikPen 100 KwikPen UNIT/ML UNIT/ML 100 UNIT/ML BD Pen BD Pen No BID BD Pen Needle Myrtle Needle Myrtle Needle U/F 32G X 4 U/F 32G X 4 Myrtle U/F MM MM 32G X 4 MM Jardiance Jardiance No 1{table QD Jardiance 25 MG 25 MG t} 25 MG Albuterol Albuterol No 2{puffs Albuterol Sulfate HFA Sulfate HFA } Sulfate 108 (90 108 (90 HFA 108 Base) Base) (90 Base) MCG/ACT MCG/ACT MCG/ACT amLODIPine amLODIPine No amLODIPine Besylate 10 Besylate 10 Besylate MG MG 10 MG Azithromyci Azithromyci No QD Azithromyc n 250 MG n 250 MG in 250 MG Ketoconazol Ketoconazol No Ketoconazo e 2 % e 2 % le 2 % One Touch One Touch No BID One Touch Ultra Test Ultra Test Ultra Test Strips 1 Strips 1 Strips 1 Famotidine Famotidine No 1{table BID Famotidine 20 MG 20 MG t} 20 MG Montelukast Montelukast No Montelukas Sodium 10 Sodium 10 t Sodium MG MG 10 MG Aspir-Low Aspir-Low No 1{table QD Aspir-Low 81 MG 81 MG t} 81 MG Flonase 50 Flonase 50 No 2{spray QD Flonase 50 MCG/ACT MCG/ACT _in_eac MCG/ACT h_nostr il} predniSONE predniSONE No QD predniSONE 10 MG 10 MG 10 MG Losartan Losartan No Losartan Potassium Potassium Potassium 25 MG 25 MG 25 MG CeleBREX CeleBREX No 1{capsu BID CeleBREX 100 MG 100 MG le_with 100 MG _food} FreeStyle FreeStyle No QD FreeStyle Ishmael 14 Ishmael 14 Ishmael 14 Day Sensor Day Sensor Day Sensor - - - Metoprolol Metoprolol No Metoprolol Tartrate Tartrate Tartrate 100 MG 100 MG 100 MG Azelastine Azelastine No Azelastine HCl 0.05 % HCl 0.05 % HCl 0.05 % amLODIPine amLODIPine No 1{table QD amLODIPine Besylate 10 Besylate 10 t} Besylate MG MG 10 MG Metoprolol Metoprolol No 1{table BID Metoprolol Tartrate Tartrate t_with_ Tartrate 100 MG 100 MG food} 100 MG FreeStyle FreeStyle No QD FreeStyle Ishmael 14 Ishmael 14 Ishmael 14 Day Sensor Day Sensor Day Sensor - - - Jardiance Jardiance No 1{table QD Jardiance 25 MG 25 MG t} 25 MG Aspir-Low Aspir-Low No 1{table QD Aspir-Low 81 MG 81 MG t} 81 MG BD Pen BD Pen No BID BD Pen Needle Myrtle Needle Myrtle Needle U/F 32G X 4 U/F 32G X 4 Myrtle U/F MM MM 32G X 4 MM Immunizations Ordered Immunization Filled Immunization Date Status Commen ts Source Name Name [place] [id number] 2021-10-03 [facility] ([facility] Dose Vaccine (Low Dose 12:00:[facility] - [facility] Booster) Booster) [place] [id number] 2021-10-03 Com[facility] (Low Dose Vaccine (Low Dose 12:00:[facility] - [facility] Booster) Booster) [place] [id number] 2021-10-03 Com[facility] (Low Dose Vaccine (Low Dose 12:00:[facility] - [facility] Booster) Booster) [place] [id number] 2021-10-03 Com[facility] ([facility] Dose Vaccine (Low Dose 12:00:[facility] (Low Dose Vaccine (Low Dose 12:00:[facility] - [facility] Booster) Booster) [place] [id number] 2021-10-03 Com[facility] (Low Dose Vaccine (Low Dose 12:00:[facility] - [facility] [address]-10-03 [facility] (Low Dose Vaccine (Low Dose 12:00:[facility] - [facility] Booster) Booster) [facility] COVID19 [facility] COVID19 2021-10-03 Com[facility] (Low Dose Vaccine (Low Dose 12:00:[facility] - [facility]) [facility] COVID-[facility] 2021-10-03 Com[facility] (Low Dose Vaccine (Low Dose 12:00:[facility] - [facility] Booster) Booster) [facility] COVID19 [facility] COVID19 2021-10-03 Com[facility] (Low Dose Vaccine (Low Dose 12:00:[facility] - [facility] Booster) Booster) [facility] COVIDElsa [facility] COVID19 2021-10-03 Com[facility] (Low Dose Vaccine (Low Dose 12:00:[facility] - [facility] Booster) Booster) [facility] FluAD FluAD 2021-07-03 [facility] 12:04:00 - [facility] FluAD FluAD 2021-07-03 [facility] 12:04:00 - [facility] FluAD FluAD 2021-07-03 Completed [facility] 12:04:00 - [facility] FluAD FluAD 2021-07-03 Completed [facility] 12:04:00 - [facility] FluAD FluAD 2021-07-03 Completed [facility] 12:04:00 [facility] FluAD FluAD 2021-07-03 Com[facility] 12:04:00 [facility] FluAD FluAD 2021-07-03 Completed [facility] 12:04:00 [facility] FluAD FluAD 2021-07-03 Completed [facility] 12:04:00 [facility] FluAD FluAD 2021-07-03 Completed [facility] 12:04:00 [facility] FluAD FluAD 2021-07-03 Completed [facility] 12:04:00 [facility] FluAD FluAD 2021-07-03 [facility] 12:04:00 [facility] FluAD FluAD 2021-07-03 Completed [facility] 12:04:00 [facility] FluAD FluAD 2021-07-03 Completed [facility] 12:04:00 - [facility] FluAD FluAD 2021-07-03 Completed [facility] 12:04:00 - [facility] FluAD FluAD 2021-07-03 Completed [facility] 12:04:00 - [facility] FluAD FluAD 2020-06-15 Completed [facility] 08:51:00 - [facility] FluAD FluAD 2020-06-15 Completed [facility] 08:51:00 - [facility] FluAD FluAD 2020-06-15 Completed [facility] 08:51:00 - [facility] FluAD FluAD 2020-06-15 Completed [facility] 08:51:00 - [facility] FluAD FluAD 2020-06-15 Completed [facility] 08:51:00 - [facility] FluAD FluAD 2020-06-15 Completed [facility] 08:51:00 - [facility] FluAD FluAD 2020-06-15 Completed [facility] 08:51:00 - [facility] FluAD FluAD 2020-06-15 Completed [facility] 08:51:00 - [facility] FluAD FluAD 2020-06-15 Completed [facility] 08:51:00 - [facility] FluAD FluAD 2020-06-15 Completed [facility] 08:51:00 - [facility] FluAD FluAD 2020-06-15 Completed [facility] 08:51:00 - [facility] FluAD FluAD 2020-06-15 Completed [facility] 08:51:00 - [facility] FluAD FluAD 2020-06-15 Completed [facility] 08:51:00 - [facility] FluAD FluAD 2020-06-15 Completed [facility] 08:51:00 - [facility] FluAD FluAD 2020-06-15 Completed [facility] 08:51:00 - [facility] FluAD FluAD 2020-06-15 Completed [facility] 08:51:00 - [facility] FluAD FluAD 2020-06-15 Completed [facility] 08:47:00 - [facility] FluAD FluAD 2020-06-15 Completed [facility] 08:47:00 - [facility] FluAD FluAD 2020-06-15 Completed [facility] 08:47:00 - [facility] FluAD FluAD 2020-06-15 Completed [facility] 08:47:00 - [facility] FluAD FluAD 2020-06-15 Completed [facility] 08:47:00 - [facility] FluAD FluAD 2020-06-15 Completed [facility] 08:47:00 - [facility] FluAD FluAD 2020-06-15 Completed [facility] 08:47:00 - [facility] FluAD FluAD 2020-06-15 Completed [facility] 08:47:00 - [facility] FluAD FluAD 2020-06-15 Completed [facility] 08:47:00 - [facility] FluAD FluAD 2020-06-15 Completed [facility] 08:47:00 - [facility] FluAD FluAD 2020-06-15 Completed [facility] 08:47:00 - [facility] FluAD FluAD 2020-06-15 Completed [facility] 08:47:00 - [facility] FluAD FluAD 2020-06-15 Completed [facility] 08:47:00 - [facility] FluAD FluAD 2020-06-15 Completed [facility] 08:47:00 - [facility] FluAD FluAD 2020-06-15 Completed [facility] 08:47:00 - [facility] FluAD FluAD 2020-06-15 Completed [facility] 08:47:00 - [facility] FluAD FluAD 2019-08-19 Completed [facility] 09:25:00 - [facility] FluAD FluAD 2019-08-19 Completed [facility] 09:25:00 - [facility] FluAD FluAD 2019-08-19 Completed [facility] 09:25:00 - [facility] FluAD FluAD 2019-08-19 Completed [facility] 09:25:00 - [facility] FluAD FluAD 2019-08-19 Completed [facility] 09:25:00 - [facility] FluAD FluAD 2019-08-19 Completed [facility] 09:25:00 - [facility] FluAD FluAD 2019-08-19 Completed [facility] 09:25:00 - [facility] FluAD FluAD 2019-08-19 Completed [facility] 09:25:00 - [facility] FluAD FluAD 2019-08-19 Completed [facility] 09:25:00 - [facility] FluAD FluAD 2019-08-19 Completed [facility] 09:25:00 - [facility] FluAD FluAD 2019-08-19 Completed [facility] 09:25:00 - [facility] FluAD FluAD 2019-08-19 Completed [facility] 09:25:00 - [facility] FluAD FluAD 2019-08-19 Completed [facility] 09:25:00 - [facility] FluAD FluAD 2019-08-19 Completed [facility] 09:25:00 - [facility] FluAD FluAD 2019-08-19 Completed [facility] 09:25:00 - [facility] FluAD FluAD 2019-08-19 Completed [facility] 09:25:00 - [facility] FluAD FluAD 2019-08-19 Completed [facility] 00:00:00 - [facility] Afluria Afluria 2018-08-07 Completed [facility] 09:25:00 - [facility] Afluria Afluria 2018-08-07 Completed [facility] 09:25:00 - [facility] Afluria Afluria 2018-08-07 Completed [facility] 09:25:00 - [facility] Afluria Afluria 2018-08-07 Completed [facility] 09:25:00 - [facility] Afluria Afluria 2018-08-07 Completed [facility] 09:25:00 - [facility] Afluria Afluria 2018-08-07 Completed [facility] 09:25:00 - [facility] Afluria Afluria 2018-08-07 Completed [facility] 09:25:00 - [facility] Afluria Afluria 2018-08-07 Completed [facility] 09:25:00 - [facility] Afluria Afluria 2018-08-07 Completed [facility] 09:25:00 - [facility] Afluria Afluria 2018-08-07 Completed [facility] 09:25:00 - [facility] Afluria Afluria 2018-08-07 Completed [facility] 09[facility]25:00 - [facility]:25:[facility] - [facility] Afluria Afluria 2018-08-07 Completed [facility] 09:25:00 - [facility] Afluria Afluria 2018-08-07 Completed [facility] 09[facility]25:00 - [facility]:25[facility] - [facility] 09:25:00 - [facility] Kenalog Kenalog 2017-12-30 Completed [facility] (Triamcinolone) (Triamcinolone) 10:08:00 [facility] Kenalog Manealog 2017-12-30 Completed [facility] (Triamcinolone) (Triamcinolone) 10:08:00 [facility] Vital Signs Vital Name Observation Time Observation Value Comments Source height 2022-03-22 14:30:00 61.00 [in_i] [facility] weight 2022-03-22 14:30:00 164.8 [lb_av] [facility] temperature 2022-03-22 14:30:00 97.8 [degF] [facility] bmi 2022-03-22 14:30:00 31.14 kg/m2 [facility] oximetry 2022-03-22 14:30:00 96 % [facility] respiratory rate 2022-03-22 14:30:00 16 /min Comm on [facility] blood pressure 2022-03-22 14:30:00 138 mm[Hg] [facility] - systolic [facility] blood pressure 2022-03-22 14:30:00 68 mm[Hg] [facility] - diastolic [facility] height 2022-03-22 15:00:00 61.00 [in_i] [facility] weight 2022-03-22 15:00:00 164.8 [lb_av] [facility] temperature 2022-03-22 15:00:00 97.8 [degF] [facility] bmi 2022-03-22 15:00:00 31.14 kg/m2 [facility] oximetry 2022-03-22 15:00:00 96 % Common [facility] respiratory rate 2022-03-22 15:00:00 16 /min Comm on [facility] blood pressure 2022-03-22 15:00:00 138 mm[Hg] [facility] - systolic [facility] blood pressure 2022-03-22 15:00:00 68 mm[Hg] [facility] - diastolic [facility] height 2021-11-20 09:00:00 61.00 [in_i] Common [facility] weight 2021-11-20 09:00:00 164.0 [lb_av] [facility] temperature 2021-11-20 09:00:00 97.8 [degF] [facility] bmi 2021-11-20 09:00:00 30.98 kg/m2 [facility] oximetry 2021-11-20 09:00:00 96 % [facility] respiratory rate 2021-11-20 09:00:00 16 /min Comm on [facility] blood pressure 2021-11-20 09:00:00 137 mm[Hg] [facility] - systolic [facility] blood pressure 2021-11-20 09:00:00 60 mm[Hg] [facility] - diastolic [facility] height 2021-10-04 11:20:00 61.00 [in_i] [facility] weight 2021-10-04 11:20:00 164.8 [lb_av] [facility] temperature 2021-10-04 11:20:00 97.9 [degF] Common [facility] bmi 2021-10-04 11:20:00 31.14 kg/m2 [facility] oximetry 2021-10-04 11:20:00 95 % [facility] respiratory rate 2021-10-04 11:20:00 16 /min Comm on [facility] blood pressure 2021-10-04 11:20:00 120 mm[Hg] [facility] - systolic [facility] blood pressure 2021-10-04 11:20:00 58 mm[Hg] [facility] - diastolic [facility] height 2021-03-29 13:20:00 61.00 [in_i] [facility] weight 2021-03-29 13:20:00 169 [lb_av] [facility] temperature 2021-03-29 13:20:00 97.4 [degF] [facility] bmi 2021-03-29 13:20:00 31.93 kg/m2 [facility] oximetry 2021-03-29 13:20:00 97 % [facility] respiratory rate 2021-03-29 13:20:00 16 /min Comm on [facility] blood pressure 2021-03-29 13:20:00 136 mm[Hg] [facility] - systolic [facility] blood pressure 2021-03-29 13:20:00 78 mm[Hg] [facility] - diastolic [facility] Systolic blood 2019-06-04 15:36:00 125 mm[Hg] [facility] pressure Medicine Diastolic blood 2019-06-04 15:36:00 71 mm[Hg] [facility] pressure Medicine Heart rate 2019-06-04 15:36:00 77 /min [facility] Body height 2019-06-04 15:36:00 157.5 cm [facility] Body weight 2019-06-04 15:36:00 77.565 kg [facility] BMI 2019-06-04 15:36:00 31.28 kg/m2 [facility] Systolic blood 2019-06-04 15:36:00 125 mm[Hg] [facility] pressure Medicine Diastolic blood 2019-06-04 15:36:00 71 mm[Hg] [facility] pressure Medicine Heart rate 2019-06-04 15:36:00 77 /min [facility] Body height 2019-06-04 15:36:00 157.5 cm [facility] Body weight 2019-06-04 15:36:00 77.565 kg [facility] BMI 2019-06-04 15:36:00 31.28 kg/m2 [facility] Procedures This patient has no known procedures. Plan of Care Planned Activity Planned Date Details Comments Source Future Scheduled COLON CANCER [facility] Test SCREENING: of Medicine COLONOSCOPY [code = COLON CANCER SCREENING: COLONOSCOPY] Future Scheduled MAMMOGRAM ANNUAL [facility] Test [code = MAMMOGRAM of Medicin e ANNUAL] Future Scheduled MEDICARE AWV [code = [facility] Test MEDICARE AWV] of Medicine Future Scheduled Diabetic foot [facility] Test examination of Medicine (regime/therapy) [code = 109489761] Future Scheduled ANNUAL DIABETIC [facility] Test RETINOPATHY of Medicine SCREENING [code = ANNUAL DIABETIC RETINOPATHY SCREENING] Future Scheduled BMI FOLLOW UP PLAN [facility] Test [code = BMI FOLLOW of Medici ne UP PLAN] Future Scheduled HEPATITIS C [facility] Test SCREENING [code = of Medicin e HEPATITIS C SCREENING] Future Scheduled FLU VACCINE > 6 [facility] Test MONTHS [code = FLU of Medici ne VACCINE > 6 MONTHS] Future Scheduled FALL SCREEN [code = [facility] FALL SCREEN] of Medicine Future Scheduled OSTEOPOROSIS [facility] Test SCREENING [code = of Medicin e OSTEOPOROSIS SCREENING] Future Scheduled PNEUMOVAX >=65 [facility] Test (PPSV23) [code = of Medicine PNEUMOVAX >=65 (PPSV23)] Future Scheduled PREVNAR >= 65 [facility] Test (PCV13) [code = of Medicine PREVNAR >= 65 (PCV13)] Future Scheduled TETANUS SHOT (ADULT) [facility] Test [code = TETANUS SHOT of Medi cine (ADULT)] Future Scheduled HOME SLEEP TEST 1 Occurrences [facility] Test (WATCHPAT) [code = starting 06/04/[address] [place] [address] [id number]] until 06/03/2020 Encounters Start End Encounter Admission Attending Care Care Encounter Source Date/Time Date/Time Type Type Clinicians Facility Department ID 2022-07-11 Outpatient Guy, Na STLMLC STLMLC [id number] 2 Common 08:53:00 [facility] 2022-03-20 Outpatient Guy, Na STLMLC STLMLC [id number] 2 [facility] 11:25:02 [facility] 2022-02-27 Outpatient Guy, Na STLMLC STLMLC [id number] 2 Common 16:48:00 [facility] 2022-01-29 Outpatient Guy, Na STLMLC STLMLC [id number] 2 Common 07:35:00 [facility] 2021-11-20 Outpatient Guy, Na STLMLC STLMLC [id number] 2 [facility] 08:59:00 [facility] 2021-10-24 Outpatient Guy, Na STLMLC STLMLC [id number] 2 Common 14:31:51 [facility] 2021-10-24 Outpatient Guy, Na STLMLC STLMLC [id number] 2 Common 14:31:16 [facility] 2021-10-24 Outpatient Guy, Na STLMLC STLMLC [id number] 2 Common 13:56:58 [facility] 2021-10-24 Outpatient Guy, Na STLMLC STLMLC [id number] 2 Common 13:55:40 [facility] 2021-10-24 Outpatient Guy, Na STLMLC STLMLC [id number] 2 Common 13:21:40 [id number] [facility] 2021-10-24 Outpatient Guy, Na STLMLC STLMLC [id number] 2 Common 12:34:25 [id number] [facility] 2021-10-24 Outpatient Guy, Na STLMLC STLMLC [id number] 2 Common 12:33:43 [id number] [facility] 2021-10-24 Outpatient Guy, Na STLMLC STLMLC [id number] 2 Common 12:26:23 [id number] [facility] 2021-10-24 Outpatient Guy, Na STLMLC STLMLC [id number] 2 Common 12:25:54 [id number] [facility] 2021-10-24 Outpatient Guy, Na STLMLC STLMLC [id number] 2 Common 12:25:14 [id number] [facility] 2021-10-24 Outpatient Guy, Na STLMLC STLMLC [id number] 2 Common 12:14:24 [id number] [facility] 2021-10-24 Outpatient Guy, Na STLMLC STLMLC [id number] 2 Common 12:09:07 [id number] [facility] 2021-10-24 Outpatient Guy, Na STLMLC STLMLC [id number] 2 Common 12:08:43 [id number] [facility] 2021-10-24 Outpatient Guy, Na STLMLC STLMLC [id number] 2 Common 11:45:57 [id number] [facility] 2021-10-24 Outpatient Guy, Na STLMLC STLMLC [id number] 2 Common 11:26:57 [id number] [facility] 2021-10-24 Outpatient Guy, Na STLMLC STLMLC [id number] Common 11:26:48 [id number] [facility] 2021-10-24 Outpatient Guy, Na STLMLC STLMLC [id number] Common 11:26:27 [id number] [facility] 2021-10-24 Outpatient Guy, Na STLMLC STLMLC [id number] Common 11:09:03 [id number] [facility] 2022-10-02 2022-10-02 (TEL) STLMLC STLMLC [id number] Co mmon 00:00:00 00:00:00 [facility] 2022-07-30 2022-07-30 (TEL) STLMLC STLMLC [id number] Co mmon 00:00:00 00:00:00 [facility] 2022-07-15 2022-07-15 (TEL) STLMLC STLMLC [id number] Co mmon 00:00:00 00:00:00 [facility] - [facility] 2022-07-15 2022-07-15 OFFICE STLMLC STLMLC [id number] Co mmon 00:00:00 00:00:00 VISIT Spirit ESTAB PT - [facility] LEVEL 4 [facility] 2022-07-10 2022-07-10 (TEL) STLMLC STLMLC [id number] Co mmon 00:00:00 00:00:00 Spirit [facility] 2022-03-22 2022-03-22 (TEL) STLMLC STLMLC [id number] Co mmon 00:00:00 00:00:00 [facility] 2022-03-22 2022-03-22 SUB ANNUAL STLMLC STLMLC [id number] Common 00:00:00 00:00:00 MCR [facility] WELLNESS - [facility] VISIT [facility] 2022-03-22 2022-03-22 OFFICE STLMLC STLMLC [id number] Co mmon 00:00:00 00:00:00 VISIT EST Spir it PT LEVEL 3 - [facility] 2021-11-20 2021-11-20 OFFICE STLMLC STLMLC [id number] Co mmon 00:00:00 00:00:00 VISIT EST Spir it PT LEVEL 3 - [facility] 2021-10-04 2021-10-04 OFFICE STLMLC STLMLC [id number] Co mmon 00:00:00 00:00:00 VISIT Spirit ESTAB PT - [facility] LEVEL 4 [facility] 2021-10-03 2021-10-03 (COVID STLMLC STLMLC [id number] Co mmon 00:00:00 00:00:00 Inj) COVID Spi rit Injection - [facility] 2021-09-04 2021-09-04 (TEL) STLMLC STLMLC [id number] Co mmon 00:00:00 00:00:00 [facility] 2021-08-30 2021-08-30 OFFICE STLMLC STLMLC [id number] Co mmon 00:00:00 00:00:00 VISIT EST Spir it PT LEVEL 3 [facility] 2021-08-29 2021-08-29 (TEL) STLMLC STLMLC [id number] Co mmon 00:00:00 00:00:00 [facility] 2021-07-16 2021-07-16 (TEL) STLMLC STLMLC [id number] Co mmon 00:00:00 00:00:00 [facility] 2021-03-29 2021-03-29 OFFICE STLMLC STLMLC [id number] Co mmon 00:00:00 00:00:00 VISIT Prosper MAGANA PT [facility] LEVEL 4 [facility] 2021-02-21 2021-02-21 Outpatient STLMLC STLMLC [id number] Common 00:00:00 00:00:00 [facility] 2020-12-01 2020-12-01 Outpatient STLMLC STLMLC [id number] Common 00:00:00 00:00:00 [facility] 2020-11-29 2020-11-29 Outpatient STLMLC STLMLC [id number] Common 00:00:00 00:00:00 [facility] 2020-11-27 2020-11-27 Outpatient STLMLC STLMLC [id number] Common 00:00:00 00:00:00 [facility] 2020-10-26 2020-10-26 Outpatient STLMLC STLMLC [id number] Common 00:00:00 00:00:00 [facility] 2020-09-14 2020-09-14 Outpatient STLMLC STLMLC [id number] Common 00:00:00 00:00:00 [facility] 2020-09-14 2020-09-14 Outpatient STLMLC STLMLC [id number] Common 00:00:00 00:00:00 [facility] 2020-08-29 2020-08-29 Outpatient STLMLC STLMLC [id number] Common 00:00:00 00:00:00 [facility] 2020-08-17 2020-08-17 Outpatient STLMLC STLMLC [id number] Common 00:00:00 00:00:00 [facility] 2020-08-16 2020-08-16 Outpatient STLMLC STLMLC [id number] Common 00:00:00 00:00:00 [facility] 2020-06-20 2020-06-20 Outpatient STLMLC STLMLC [id number] Common 00:00:00 00:00:00 [facility] 2020-06-15 2020-06-15 Outpatient STLMLC STLMLC [id number] Common 00:00:00 00:00:00 [facility] 2020-03-15 2020-03-15 [facility] [id number] Common 09:20:00 09:20:[address] [facility] 2019-11-29 2019-11-29 [facility] [id number] Common 16:03:00 16:03:[address] [facility] 2019-11-23 2019-11-23 [facility] [id number] Common 14:56:00 14:56:[address] [facility] 2019-11-22 2019-11-22 [facility] [id number] Common 10:40:00 10:40:[address] [facility] 2019-09-20 2019-09-20 [facility] [id number] Common 15:00:00 15:00:[address] [facility] 2019-08-19 2019-08-19 [facility] [id number] Common 14:00:00 14:00:[address] [facility] 2019-06-04 2019-06-04 Office LESLYE Lindo [id number] 10:30:06 11:30:06 Visit Annise AMBULATOR [id number] Y [id number] 2019-06-04 2019-06-04 Office LESLYE Lindo [id number] [facility] 10:30:06 11:30:06 Visit Anngeovanny AMBULATOR [id number] College Y [id number] [facility] 800 e 2019-05-14 2019-05-14 [facility] [id number] Common 11:00:00 11:00:[address] [facility] 2019-04-22 2019-04-22 [facility] [id number] Common 10:00:00 10:00:[address] [facility] 2019-04-13 2019-04-13 [facility] [id number] Common 10:00:00 10:00:[address] [facility] 2019-04-07 2019-04-07 [facility] [id number] Common 16:14:00 16:14:[address] [facility] 2018-11-09 2018-11-09 [facility] [id number] Common 08:30:00 08:30:[address] [facility] 2018-09-30 2018-09-30 [facility] [id number] Common 15:47:00 15:47:[address] [facility] 2018-09-24 2018-09-24 [facility] [id number] Common 09:45:00 09:45:[address] [facility] 2018-05-08 2018-05-08 [facility] [id number] Common 09:45:00 09:45:[address] [facility] 2018-01-27 2018-01-27 [facility] [id number] Common 16:18:00 16:18:[address] [facility] 2018-01-26 2018-01-26 [facility] [id number] Common 08:15:00 08:15:[address] [facility] 2018-01-23 2018-01-23 [facility] [id number] Common 10:09:00 10:09:[address] [facility] 2018-01-14 2018-01-14 [facility] [id number] Common 08:20:00 08:20:[address] [facility] 2017-12-30 2017-12-30 [facility] [id number] Common 09:00:00 09:00:[address] [facility] Results Test Description Test Time Test Comments Results Result Comments Source POCT-GLUCOSE METER 2019-04-03 11:47:00 Test Item Value Reference Range Interpretation Comme nts POC-GLUCOSE METER (BEAKER) (test 209 mg/dL 70-110 H TESTED AT [facility] [address] [facility] code = 1538) [facility] 7703 0 POCT-GLUCOSE [id number] 08:53:00 Test Item Value Reference Range Interpretation Comments POC-GLUCOSE METER 115 mg/dL 70-110 H [facility] (BEAKER) (test code = MATT Heaton [facility] 1538) [id number] BASIC METABOLIC [id number] 06:28:00 Test Item Value Reference Range Interpretation Comments SODIUM (BEAKER) 141 meq/L 136-145 (test code = 381) POTASSIUM (BEAKER) 3.5 meq/L 3.5-5.1 (test code = 379) CHLORIDE (BEAKER) 111 meq/L 98-107 H (test code = 382) CO2 (BEAKER) (test 23 meq/L 22-29 code = 355) BLOOD UREA NITROGEN 22 mg/dL 7-21 H (BEAKER) (test code = 354) CREATININE (BEAKER) 0.85 mg/dL 0.57-1.25 (test code = 358) GLUCOSE RANDOM 116 mg/dL 70-105 H (BEAKER) (test code = 652) CALCIUM (BEAKER) 8.6 mg/dL 8.4-10.2 (test code = 697) EGFR (BEAKER) (test mL/min/1.73 INSUFFIC IENT CLINICAL code = 1092) sq m DATA TO CALCULA TE ESTIMATED GFR. CBC W/PLT COUNT & AUTO [id number] 05:10:00 Test Item Value Reference Range Interpretation Comments WHITE BLOOD CELL COUNT (BEAKER) 5.7 K/ L 3.5-10.5 (test code = 775) RED BLOOD CELL COUNT (BEAKER) 5.15 M/ L 3.93-5.22 (test code = 761) HEMOGLOBIN (BEAKER) (test code = 13.9 GM/DL 11.2-15.7 410) HEMATOCRIT (BEAKER) (test code = 43.6 % 34.1-44.9 411) MEAN CORPUSCULAR VOLUME (BEAKER) 84.7 fL 79.4-94.8 (test code = 753) MEAN CORPUSCULAR HEMOGLOBIN 27.0 pg 25.6-32.2 (BEAKER) (test code = 751) MEAN CORPUSCULAR HEMOGLOBIN CONC 31.9 GM/DL 32.2-35.5 L (BEAKER) (test code = 752) RED CELL DISTRIBUTION WIDTH 13.5 % 11.7-14.4 (BEAKER) (test code = 412) PLATELET COUNT (BEAKER) (test 167 K/CU MM 150-450 code = 756) MEAN PLATELET VOLUME (BEAKER) 10.1 fL 9.4-12.3 (test code = 754) NUCLEATED RED BLOOD CELLS 0 /100 WBC 0-0 (BEAKER) (test code = 413) NEUTROPHILS RELATIVE PERCENT 58 % (BEAKER) (test code = 429) LYMPHOCYTES RELATIVE PERCENT 30 % (BEAKER) (test code = 430) MONOCYTES RELATIVE PERCENT 8 % (BEAKER) (test code = 431) EOSINOPHILS RELATIVE PERCENT 3 % (BEAKER) (test code = 432) BASOPHILS RELATIVE PERCENT 0 % (BEAKER) (test code = 437) NEUTROPHILS ABSOLUTE COUNT 3.31 K/ L 1.56-6.13 (BEAKER) (test code = 670) LYMPHOCYTES ABSOLUTE COUNT 1.72 K/ L 1.18-3.74 (BEAKER) (test code = 414) MONOCYTES ABSOLUTE COUNT (BEAKER) 0.48 K/ L 0.24-0.36 H (test code = 415) EOSINOPHILS ABSOLUTE COUNT 0.17 K/ L 0.04-0.36 (BEAKER) (test code = 416) BASOPHILS ABSOLUTE COUNT (BEAKER) 0.01 K/ L 0.01-0.08 (test code = 417) IMMATURE GRANULOCYTES-RELATIVE 0 % 0-1 PERCENT (BEAKER) (test code = 2801) POCT-GLUCOSE [id number] 21:44:00 Test Item Value Reference Range Interpretation Comments POC-GLUCOSE METER 137 mg/dL 70-110 H TESTED AT [place] [address] ([facility] ([facility] = [facility] [place] [facility] 1538) [id number] POCT-GLUCOSE [id number] 16:51:00 Test Item Value Reference Range Interpretation Comments POC-GLUCOSE METER 107 mg/dL 70-110 TESTED AT [place] [address] ([facility]) (test [facility] = [facility] [place] [facility] 1538) [address] POCT-GLUCOSE [id number] 12:23:00 Test Item Value Reference Range Interpretation Comments POC-GLUCOSE METER 122 mg/dL 70-110 H TESTED AT [place] [address] ([facility]) (test code = [facility] Sudarshan [facility] 1538) [id number] POCT-GLUCOSE [id number] 07:53:00 Test Item Value Reference Range Interpretation Comments POC-GLUCOSE METER 90 mg/dL 70-110 TESTED AT [place] [address] (BEAKER) (test code = [facility] Sudarshan [facility] [address] 1538) BASIC METABOLIC [id number] 07:12:00 Test Item Value Reference Range Interpretation Comments SODIUM (BEAKER) 141 meq/L 136-145 (test code = 381) POTASSIUM (BEAKER) 3.5 meq/L 3.5-5.1 (test code = 379) CHLORIDE (BEAKER) 109 meq/L 98-107 H (test code = 382) CO2 (BEAKER) (test 27 meq/L 22-29 code = 355) BLOOD UREA NITROGEN 22 mg/dL 7-21 H (BEAKER) (test code = 354) CREATININE (BEAKER) 0.88 mg/dL 0.57-1.25 (test code = 358) GLUCOSE RANDOM 98 mg/dL 70-105 (BEAKER) (test code = 652) CALCIUM (BEAKER) 8.5 mg/dL 8.4-10.2 (test code = 697) EGFR (BEAKER) (test mL/min/1.73 INSUFFIC IENT CLINICAL code = 1092) sq m DATA TO CALCULA TE ESTIMATED GFR. VITAMIN B12 AND [id number] 06:46:00 Test Item Value Reference Range Interpretation Comments VITAMIN B12 (BEAKER) (test code = 313 pg/mL 213-816 774) FOLATE (BEAKER) (test code = 362) 15.3 ng/mL >=7.0 CBC W/PLT COUNT & AUTO [id number] 05:44:00 Test Item Value Reference Range Interpretation Comments WHITE BLOOD CELL COUNT (BEAKER) 6.3 K/ L 3.5-10.5 (test code = 775) RED BLOOD CELL COUNT (BEAKER) 5.08 M/ L 3.93-5.22 (test code = 761) HEMOGLOBIN (BEAKER) (test code = 13.7 GM/DL 11.2-15.7 410) HEMATOCRIT (BEAKER) (test code = 43.3 % 34.1-44.9 411) MEAN CORPUSCULAR VOLUME (BEAKER) 85.2 fL 79.4-94.8 (test code = 753) MEAN CORPUSCULAR HEMOGLOBIN 27.0 pg 25.6-32.2 (BEAKER) (test code = 751) MEAN CORPUSCULAR HEMOGLOBIN CONC 31.6 GM/DL 32.2-35.5 L (BEAKER) (test code = 752) RED CELL DISTRIBUTION WIDTH 13.6 % 11.7-14.4 (BEAKER) (test code = 412) PLATELET COUNT (BEAKER) (test 179 K/CU MM 150-450 code = 756) MEAN PLATELET VOLUME (BEAKER) 10.1 fL 9.4-12.3 (test code = 754) NUCLEATED RED BLOOD CELLS 0 /100 WBC 0-0 (BEAKER) (test code = 413) NEUTROPHILS RELATIVE PERCENT 60 % (BEAKER) (test code = 429) LYMPHOCYTES RELATIVE PERCENT 31 % (BEAKER) (test code = 430) MONOCYTES RELATIVE PERCENT 7 % (BEAKER) (test code = 431) EOSINOPHILS RELATIVE PERCENT 2 % (BEAKER) (test code = 432) BASOPHILS RELATIVE PERCENT 0 % (BEAKER) (test code = 437) NEUTROPHILS ABSOLUTE COUNT 3.78 K/ L 1.56-6.13 (BEAKER) (test code = 670) LYMPHOCYTES ABSOLUTE COUNT 1.98 K/ L 1.18-3.74 (BEAKER) (test code = 414) MONOCYTES ABSOLUTE COUNT (BEAKER) 0.45 K/ L 0.24-0.36 H (test code = 415) EOSINOPHILS ABSOLUTE COUNT 0.11 K/ L 0.04-0.36 (BEAKER) (test code = 416) BASOPHILS ABSOLUTE COUNT (BEAKER) 0.01 K/ L 0.01-0.08 (test code = 417) IMMATURE GRANULOCYTES-RELATIVE 0 % 0-1 PERCENT (BEAKER) (test code = 2801) POCT-GLUCOSE [id number] 21:49:00 Test Item Value Reference Range Interpretation Comments POC-GLUCOSE METER 157 mg/dL 70-110 H TESTED AT [facility] 67[address] ([facility]) (test code = MATT Heaton [place] [address]) [address] CT, CAROTID, [id number] 17:45:00FINAL REPORT CT, CAROTID, ANGIO, CT, CTANGIO BRAINBRAIN CT WITHOUT CONTRAST INDICATION: Stroke, R/o dissection COMPARISON: CT head of the same date TECHNIQUE:Rapid acquisition spiral images were obtained between the aortic arch and the cranial vertex during intravenous contrast infusion to reconstruct axial images and angiographic 3D maximum intensity projections (MIP). 3-D volumetric reformatted images were created at a dedicated workstation. Precontrast images of the brain were also obtained. Stenosis evaluation reported in compliance with NASCET criteria. DOSE REDUCTION: Dose modulation, iterative reconstruction, and/or weight-based adjustment of the mA/kV was utilized to reduce the radiation dose to as low as reasonably achievable. FINDINGS:NECT BRAIN:No intracranial hemo rrhage, midline shift or mass effect. Midline structures are normally developed. Mild chronic microvascular ischemic changes of the periventricular and subcortical white matter are present.No hydrocephalus.Orbits are within normal limits.No obstructive paranasal sinus disease. CTA BRAIN:Internal carotid arteries: Petrous, cavernous and supraclinoid portions patent. Middle cerebral arteries: BilateralMCA M1-M2 branches demonstrate normal contrast enhancement. Anterior cerebral arteries: Bilateral ALFREDO A1-A2 branches demonstrate normal contrast enhancement. Basilar system: Moderate atherosclerotic narrowing of the intracranial V4 segments. The basilar circulation is diminutive throughout with bilateral functional -type director of reimbursement. There is multifocal mild to moderate atherosclerotic disease of the posterior circulation including the superior cerebellar arteries and the anterior inferior cerebellar arteries. Normal contrast opacification of the vertebrobasilar system. Posterior cerebral arteries: Bilateral functional -type director of reimbursement. Normal contrast opacification of the bilateral WOODWORK TEACHER P1-P2 branches. Venous opacification: Major dural sinuses unremarkable for bolus timing.Additional findings: None.CTA NECK:Common carotid arteries: There is normal contrast opacification of the bilateral common carotid arteries. Cervical internal carotid arteries: Normal contrast opacification of the bilateral cervical internal carotid arteries without significant stenosis by NASCET criteria. Vertebral arteries: Lack of opacification of the right V1 segment. The remainder of the right cervical and intracranial vertebral artery opacified normally. Normal contrast opacification of the bilateral cervical vertebralarteries. Arch anatomy: Moderate narrowing of the left subclavian origin from the aorta. Nonvascularfindings: No acute findings within the paraspinal soft tissues. IMPRESSION: Subcentimeter acute infarcts described in prior report of MRI brain are not readily apparent on noncontrast exam. No hemorrhagic conversion or significant mass effect. Lack of contrast opacification of the right cervical vertebral artery extending from the origin to the V2 segment. This may be secondary to severe atherosclerotic superimposed on baseline diminutive caliber of the vessel, however, occlusion proximally cannot be excluded. There is contrast opacification distally extending to the basilar confluence. There is moderate intracranial atherosclerotic disease throughout the posterior circulation including the origins of the anterior inferior cerebellar arteries. 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 Signed: [facility] Gonzalez [facility] Verified Date/Time: 04/01/2019 17:45:01 Reading Location: [facility] C013V Neuro Reading [facility] [id number] 17:45:00FINAL REPORT CT, CAROTID, ANGIO, CT, CTANGIO BRAINBRAIN CT WITHOUT CONTRAST INDICATION: Stroke, R/o dissection COMPARISON: CT head of the same date TECHNIQUE:Rapid acquisition spiral images were obtained between the aortic arch and the cranial vertex during intravenous contrast infusion to reconstruct axial images and angiographic 3D maximum intensity projections (MIP). 3-D volumetric reformatted images were created at a dedicated workstation. Precontrast images of the brain were also obtained. Stenosis evaluation reported in compliance with NASCET criteria. DOSE REDUCTION: Dose modulation, iterative reconstruction, and/or weight-based adjustment of the mA/kV was utilized to reduce the radiation dose to as low as reasonably achievable. FINDINGS:NECT BRAIN:No intracranial hemor rhage, midline shift or mass effect. Midline structures are normally developed. Mild chronic microvascular ischemic changes of the periventricular and subcortical white matter are present.No hydrocephalus.Orbits are within normal limits.No obstructive paranasal sinus disease. CTA BRAIN:Internal carotid arteries: Petrous, cavernous and supraclinoid portions patent. Middle cerebral arteries: Bilateral MCA M1-M2 branches demonstrate normal contrast enhancement. Anterior cerebral arteries: Bilateral ACAA1-A2 branches demonstrate normal contrast enhancement. Basilar system: Moderate atherosclerotic narrowing of the intracranial V4 segments. The basilar circulation is diminutive throughout with bilateral functional -type director of reimbursement. There is multifocal mild to moderate atherosclerotic disease of the posterior circulation including the superior cerebellar arteries and the anterior inferior cerebellar arteries. Normal contrast opacification of the vertebrobasilar system. Posterior cerebral arteries: Bilateral functional -type director of reimbursement. Normal contrast opacification of the bilateral WOODWORK TEACHER P1-P2 branches. Venous opacification: Major dural sinuses unremarkable for bolus timing.Additional findings: None. CTA NECK:Common carotid arteries: There is normal contrast opacification of the bilateral common carotid arteries. Cervical internal carotid arteries: Normal contrast opacification of the bilateral cervical internal carotid arteries without significant stenosis by NASCET criteria. Vertebral arteries: Lack of opacification of the right V1 segment. The remainder of the right cervical and intracranial vertebral artery opacified normally. Normal contrast opacification of the bilateral cervical vertebral arteries. Arch anatomy: Moderate narrowing of the left subclavian origin from the aorta. Nonvascular findings: No acute findings within the paraspinal soft tissues. IMPRESSION: Subcentimeter acute infarcts described in prior report of MRI brain are not readily apparent on noncontrast exam. No hemorrhagic conversion or significant mass effect. Lack of contrast opacification of the right cervical vertebral artery extending from the origin to the V2 segment. This may be secondary to severe atherosclerotic superimposed on baseline diminutive caliber of the vessel, however, occlusion proximally cannot beexcluded. There is contrast opacification distally extending to the basilar confluence. There is moderate intracranial atherosclerotic disease throughout the posterior circulation including the originsof the anterior inferior cerebellar arteries. 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 Signed: Barbara Gonzalez [facility] Verified Date/Time: 04/01/2019 17:45:01 Reading Location: [facility] C013V Neuro Reading Room -GLUCOSE [id number] 15:14:00 Test Item Value Reference Range Interpretation Comments POC-GLUCOSE METER 132 mg/dL 70-110 H TESTED AT [facility] 6720 (BEAKER) (test code = MATT [place] 1538) [address] TSH/FREE T4 IF [id number] 14:03:00 Test Item Value Reference Range Interpretation Comments THYROID STIMULATING HORMONE 0.44 uIU/mL 0.35-4.94 (BEAKER) (test code = 772) HEMOGLOBIN [id number] 13:52:00 Test Item Value Reference Range Interpretation Comments HEMOGLOBIN A1C (BEAKER) (test code = 8.9 % 4.3-6.1 H 368) URINALYSIS W/ REFLEX URINE [id number] 13:51:00 Test Item Value Reference Range Interpretation Comments COLOR (BEAKER) (test code = 470) Light Yellow CLARITY (BEAKER) (test code = Hazy 469) SPECIFIC GRAVITY UA (BEAKER) 1.029 1.001-1.035 (test code = 468) PH UA (BEAKER) (test code = 467) 5.5 5.0-8.0 PROTEIN UA (BEAKER) (test code = Negative Negative 464) GLUCOSE UA (BEAKER) (test code = >1000 mg/dL Negative A 365) KETONES UA (BEAKER) (test code = 10 mg/dL Negative A 371) BILIRUBIN UA (BEAKER) (test code Negative Negative = 462) BLOOD UA (BEAKER) (test code = Negative Negative 461) NITRITE UA (BEAKER) (test code = Positive Negative A 465) LEUKOCYTE ESTERASE UA (BEAKER) Large Negative A (test code = 466) UROBILINOGEN UA (BEAKER) (test 0.2 mg/dL 0.2-1.0 code = 463) RBC UA (BEAKER) (test code = 0 /HPF 519) WBC UA (BEAKER) (test code = 99 /HPF 520) BACTERIA (BEAKER) (test code = Rare 517) MUCUS (BEAKER) (test code = Rare 1574) SQUAMOUS EPITHELIAL (BEAKER) 2 /HPF (test code = 516) SOURCE(BEAKER) (test code = 4044) CBC W/PLT COUNT & AUTO [id number] 13:44:00 Test Item Value Reference Range Interpretation Comments WHITE BLOOD CELL COUNT (BEAKER) 9.3 K/ L 3.5-10.5 (test code = 775) RED BLOOD CELL COUNT (BEAKER) 5.86 M/ L 3.93-5.22 H (test code = 761) HEMOGLOBIN (BEAKER) (test code = 15.7 GM/DL 11.2-15.7 410) HEMATOCRIT (BEAKER) (test code = 49.6 % 34.1-44.9 H 411) MEAN CORPUSCULAR VOLUME (BEAKER) 84.6 fL 79.4-94.8 (test code = 753) MEAN CORPUSCULAR HEMOGLOBIN 26.8 pg 25.6-32.2 (BEAKER) (test code = 751) MEAN CORPUSCULAR HEMOGLOBIN CONC 31.7 GM/DL 32.2-35.5 L (BEAKER) (test code = 752) RED CELL DISTRIBUTION WIDTH 13.8 % 11.7-14.4 (BEAKER) (test code = 412) PLATELET COUNT (BEAKER) (test 212 K/CU MM 150-450 code = 756) MEAN PLATELET VOLUME (BEAKER) 10.0 fL 9.4-12.3 (test code = 754) NUCLEATED RED BLOOD CELLS 0 /100 WBC 0-0 (BEAKER) (test code = 413) NEUTROPHILS RELATIVE PERCENT 76 % (BEAKER) (test code = 429) LYMPHOCYTES RELATIVE PERCENT 17 % (BEAKER) (test code = 430) MONOCYTES RELATIVE PERCENT 7 % (BEAKER) (test code = 431) EOSINOPHILS RELATIVE PERCENT 0 % (BEAKER) (test code = 432) BASOPHILS RELATIVE PERCENT 0 % (BEAKER) (test code = 437) NEUTROPHILS ABSOLUTE COUNT 7.05 K/ L 1.56-6.13 H (BEAKER) (test code = 670) LYMPHOCYTES ABSOLUTE COUNT 1.57 K/ L 1.18-3.74 (BEAKER) (test code = 414) MONOCYTES ABSOLUTE COUNT (BEAKER) 0.62 K/ L 0.24-0.36 H (test code = 415) EOSINOPHILS ABSOLUTE COUNT 0.01 K/ L 0.04-0.36 L (BEAKER) (test code = 416) BASOPHILS ABSOLUTE COUNT (BEAKER) 0.01 K/ L 0.01-0.08 (test code = 417) IMMATURE GRANULOCYTES-RELATIVE 1 % 0-1 PERCENT (BEAKER) (test code = 2801) LIPID [id number] 13:44:00 Test Item Value Reference Range Interpretation Comments TRIGLYCERIDES (BEAKER) (test code = 264 mg/dL 540) CHOLESTEROL (BEAKER) (test code = 234 mg/dL 631) HDL CHOLESTEROL (BEAKER) (test code 37 mg/dL = 976) LDL CHOLESTEROL CALCULATED (BEAKER) 144 mg/dL (test code = 633) Triglyceride Reference Range: Low Risk <150 Borderline 150-199 High Risk 200- 499 Very High Risk >=500Cholesterol Reference Range: Low Risk <200 Borderline 200-239 High Risk >240HDL Cholesterol Reference Range: Low Risk >=60 High Risk <40LDL Cholesterol Reference Range: Optimal <100 Near Optimal 100-129 Borderline 130-159 High 160-189 Very High >=190POCT-GLUCOSE [id number] 13:14:00 Test Item Value Reference Range Interpretation Comments POC-GLUCOSE METER 123 mg/dL 70-110 H TESTED AT [facility] [facility] (test code = [place] 1538) [address] BASIC METABOLIC [id number] 09:34:00 Test Item Value Reference Range Interpretation Comments SODIUM (BEAKER) 145 meq/L 136-145 (test code = 381) POTASSIUM (BEAKER) 4.0 meq/L 3.5-5.1 (test code = 379) CHLORIDE (BEAKER) 108 meq/L 98-107 H (test code = 382) CO2 (BEAKER) (test 27 meq/L 22-29 code = 355) BLOOD UREA NITROGEN 20 mg/dL 7-21 (BEAKER) (test code = 354) CREATININE (BEAKER) 0.96 mg/dL 0.57-1.25 (test code = 358) GLUCOSE RANDOM 133 mg/dL 70-105 H (RAH) (test code = 652) CALCIUM (BEAKER) 9.3 mg/dL 8.4-10.2 (test code = 697) EGFR (ULISESAKER) (test mL/min/1.73 INSUFFIC IENT CLINICAL code = 1092) sq m DATA TO CALCULA TE ESTIMATED GFR. [id number] 09:21:00 Test Item Value Reference Range Interpretation Comments PHOSPHORUS (BEAKER) (test code = 4.4 mg/dL 2.3-4.7 604) [id number] 09:21:00 Test Item Value Reference Range Interpretation Comments MAGNESIUM (BEAKER) (test code = 2.1 mg/dL 1.6-2.6 627) MR, MRA, BRAIN, WITHOUT [id number] 07:24:00Reason for exam:->Ischemic Stroke EvaluationFINAL REPORT MR, MRA, NECK, WITHOUT IV CONTRAST, MR, BRAIN, WITHOUT CONTRAST, MR, MRA, BRAIN, WITHOUT CONTRAST INDICATION: Ischemic Stroke Evaluationstroke evaluation TECHNIQUE: Multiplanar, multisequence MR images of the brain. 3-D time of flight MRA of the cranial and cervical circulation. 2-D time of flight MRA of the neck. 3D MIP angiographic post-processing was performed. Stenosis evaluation utilized NASCET criteria. 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 Brain parenchyma is normal in morphology. Midline structures are normally developed. Scattered T2/FLAIR hyperintense foci within the periventricular and subcortical white matter are nonspecific, however, statistically represent chronic microvascular ischemic changes. No hy drocephalus. Orbits are within normal limits. No obstructive paranasal sinus disease. Additional findings: None. MRA BRAIN:Internal carotid arteries: Normal flow related enhancement without flow-limiting stenosisMiddle cerebral arteries: Normal flow related enhancement within the bilateral MCA M1-M2 segments without flow limiting stenosisAnterior cerebral arteries: Normal flow-related enhancement within the bilateral ALFREDO A1-A2 segments without flow limiting stenosisBasilar system: Basilar circulation is congenitally diminutive with functional -type director of reimbursement bilaterally. Right V4 segment is markedly diminutive, however, demonstrates flow related enhancement throughout. 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 Right V4 segment is markedly diminutive, however, demonstrates flow related enhancement throughout. Normal flow-related enhancement within the bilateral WOODWORK TEACHER P1-P2 segments without flow-limiting stenosisAdditional findings: None. MRA NECK:Common carotid arteries: Unremarkable. Bifurcations: Noflow-limiting stenosis. Cervical internal carotid arteries: No flow limiting stenosis.Vertebral arteries: Origins are not well-seen. No flow limiting stenosis within the visualized cervical vertebral arterial segments. Limited assessment of the V3 segment secondary to noncontrast technique. 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 Considering bilaterality, embolic phenomenon is suspected and correlation with echocardiogram is recommended. No hemorrhagic conversion or significant mass effect. Signed: Barbara Strong MDReport Verified Date/Time: 04/01/2019 07:24:55 Reading Location: [address] Neuro Reading Room MR, MRA, NECK, WITHOUT IV [id number] 07:24:00Reason for exam:->Ischemic Stroke EvaluationFINAL REPORT MR, MRA, NECK, WITHOUT IV CONTRAST, MR, BRAIN, WITHOUT CONTRAST, MR, MRA, BRAIN, WITHOUT CONTRAST INDICATION: Ischemic Stroke Evaluationstroke evaluation TECHNIQUE: Multiplanar, multisequence MR images of the brain. 3-D time of flight MRA of the cranial and cervical circulation. 2-D time of flight MRA of the neck. 3D MIP angiographic post-processing was performed. Stenosis evaluation utilized NASCET criteria. 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 Brain parenchyma is normal in morphology. Midline structures are normally developed. Scattered T2/FLAIR hyperintense foci within the periventricular and subcortical white matter are nonspecific, however, statistically represent chronic microvascular ischemic changes. No hydrocephalus. Orbits are within normal limits. No obstructive paranasal sinus disease. Additional findings: None. 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 Right V4 segment is markedly diminutive, however, demonstrates flow related enhancement throughout. 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 Right V4 segment is markedly diminutive, however, demonstrates flow related enhancement throughout. Normal flow-related enhancement within the bilateral WOODWORK TEACHER P1-P2 segments without flow-limiting stenosisAdditional findings: None. MRA NECK:Common carotid arteries: Unremarkable. Bifurcations: Noflow- limiting stenosis. Cervical internal carotid arteries: No flow limiting stenosis.Vertebral arteries: Origins are not well-seen. No flow limiting stenosis within the visualized cervical vertebral arterial segments. Limited assessment of the V3 segment secondary to noncontrast technique. 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 Considering bilaterality, embolic phenomenon is suspected and correlation with echocardiogram is recommended. No hemorrhagic conversion or significant mass effect. Signed: Barbara Strong MDReport Verified Date/Time: 04/01/2019 07:24:55 Reading Location: [address] Neuro Reading Room MR, BRAIN, WITHOUT [id number] 07:24:00Reason for exam:->Ischemic Stroke EvaluationFINAL REPORT MR, MRA, NECK, WITHOUT IV CONTRAST, MR, BRAIN, WITHOUT CONTRAST, MR, MRA, BRAIN, WITHOUT CONTRAST INDICATION: Ischemic Stroke Evaluationstroke evaluation TECHNIQUE: Multiplanar, multisequence MR images of the brain. 3-D time of flight MRA of the cranial and cervical circulation. 2-D time of flight MRA of the neck. 3D MIP angiographic post-processing was performed. Stenosis evaluation utilized NASCET criteria. 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 Brain parenchyma is normal in morphology. Midline structures are normally developed. Scattered T2/FLAIR hyperintense foci within the periventricular and subcortical white matter are nonspecific, however, statistically represent chronic microvascular ischemic changes. No hydrocephalus. Orbits are within normal limits. No obstructive paranasal sinus disease. Additional findings: None. 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 Right V4 segment is markedly diminutive, however, demonstrates flow related enhancement throughout. 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 Right V4 segment is markedly diminutive, however, demonstrates flow related enhancement throughout. Normal flow-related enhancement within the bilateral WOODWORK TEACHER P1-P2 segments without flow-limiting stenosisAdditional findings: None. MRA NECK:Common carotid arteries: Unremarkable. Bifurcations: Noflow- limiting stenosis. Cervical internal carotid arteries: No flow limiting stenosis.Vertebral arteries: Origins are not well-seen. No flow limiting stenosis within the visualized cervical vertebral arterial segments. Limited assessment of the V3 segment secondary to noncontrast technique. 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 Considering bilaterality, embolic phenomenon is suspected and correlation with echocardiogram is recommended. No hemorrhagic conversion or significant mass effect. Signed: Barbara Strong MDReport Verified Date/Time: 04/01/2019 07:24:55 Reading Location: [facility] B1 C013V Neuro Reading Room
--- NOTE | 2022-11-05 16:01 | RAD REPORT ---
EXAM DESCRIPTION: RAD - Pelvis - 11/05/2022 3:52 pm CLINICAL HISTORY: hip pain COMPARISON: No comparisons FINDINGS: No fracture, dislocation or radiographic evidence of AVN. IMPRESSION: Negative study.
--- NOTE | 2022-11-05 16:04 | RAD REPORT ---
EXAM DESCRIPTION: RAD - Hip Right 2 View - 11/05/2022 3:52 pm CLINICAL HISTORY: hip pain COMPARISON: No comparisons FINDINGS: Mild osteoarthritic changes affect the right hip. No fracture, dislocation or AVN.
[2022-11-05] MEDS ORDERED: KETOROLAC 30 MG/ML INJ ONE (16:31)
--- NOTE | 2022-11-05 18:04 | RAD REPORT ---
EXAM DESCRIPTION: US - Extremity Venous Uni Ltd - 11/05/2022 5:26 pm CLINICAL HISTORY: PAIN Leg swelling and edema. COMPARISON: <Comparisons> FINDINGS: Right lower extremity venous system was interrogated with Doppler technique. Normal flow, compressibility and augmentation was noted. There is no DVT present. IMPRESSION: No evidence of right lower extremity deep venous thrombosis.
--- NOTE | 2022-11-05 18:49 | ER ---
Nurse's Notes [facility] Name: Kallie Rivera Age: 67 yrs Sex: Female : 1955 Arrival Date: 11/05/2022 Time: 15:32 Bed 11 Private MD: Guanaco Andrews Diagnosis: Pain in right hip Presentation: 11/05 16:13 Chief complaint: Patient states: 6 days ago I woke up in middle of night with my right ld1 hip and right leg hurting. Pt denies injury. Coronavirus screen: At this time, the client does not indicate any symptoms associated with coronavirus-19. Ebola Screen: No symptoms or risks identified at this time. Initial Sepsis Screen: Does the patient meet any 2 criteria? No. Patient's initial sepsis screen is negative. Does the patient have a suspected source of infection? No. Patient's initial sepsis screen is negative. Risk Assessment: Do you want to hurt yourself or someone else? Patient reports no desire to harm self or others. Onset of symptoms was November 05, 2022 at 16:15. 16:13 Method Of Arrival: Ambulatory ld1 16:13 Acuity: PORFIRIO 3 ld1 Triage Assessment: 16:17 General: Appears in no apparent distress. comfortable, Behavior is calm, cooperative, ld1 appropriate for age. Pain: Complains of pain in right leg Pain does not radiate. Pain currently is 9 out of 10 on a pain scale. Quality of pain is described as throbbing. EENT: No signs and/or symptoms were reported regarding the EENT system. Neuro: Level of Consciousness is awake, alert, obeys commands, Oriented to person, place, time, situation. Cardiovascular: Capillary refill < 3 seconds Patient's skin is warm and dry. Respiratory: Airway is patent Respiratory effort is even, unlabored. GI: Abdomen is round non-distended. : No signs and/or symptoms were reported regarding the genitourinary system. Derm: No signs and/or symptoms reported regarding the dermatologic system. Musculoskeletal: Reports pain in right leg. Historical: - Allergies: 16:15 No Known Allergies; ld1 - Home Meds: 16:15 Insulin: Regular Sub-Q [Active]; metoprolol tartrate 50 mg Oral tab 1 tab 2 times per ld1 day [Active]; losartan 25 mg oral tab 1 tab 2 times per day [Active]; amlodipine 10 mg tab 1 tab once daily [Active]; rosuvastatin 40 mg oral tab 1 tab once daily [Active]; Jardiance 25 mg oral tab 1 tab once daily [Active]; montelukast 10 mg oral tab 1 tab once daily [Active]; tresiba [Active]; - PMHx: 16:15 Hypertensive disorder; Diabetes mellitus; ld1 - PSHx: 16:17 Total abdominal hysterectomy; ld1 - Immunization history:: Adult Immunizations up to date, Client reports receiving the 2nd dose of the Covid vaccine. - Social history:: Smoking status: Patient denies any tobacco usage or history of. Patient/guardian denies using alcohol. Screenin:45 [facility] ED Fall Risk Assessment (Adult) History of falling in the last 3 months, jl7 including since admission No falls in past 3 months (0 pts) Confusion or Disorientation No (0 pts) Intoxicated or Sedated No (0 pts) Impaired Gait No (0 pts) Mobility Assist Device Used No (0 pt) Altered Elimination No (0 pt) Score/Fall Risk Level 0 - 2 = Low Risk Oriented to surroundings, Maintained a safe environment. Abuse screen: Denies threats or abuse. Denies injuries from another. Nutritional screening: No deficits noted. Tuberculosis screening: No symptoms or risk factors identified. Assessment: 16:45 General: Appears in no apparent distress. uncomfortable, Behavior is calm, cooperative, jl7 appropriate for age. Pain: Complains of pain in right leg Pain currently is 8 out of 10 on a pain scale. Neuro: Level of Consciousness is awake, alert, obeys commands, Oriented to person, place, time, situation. Cardiovascular: Patient's skin is warm and dry. Respiratory: Airway is patent Respiratory effort is even, unlabored, Respiratory pattern is regular, symmetrical. Derm: Skin is pink, warm \\T\\ dry. 19:21 General: "I know my blood pressure is high. I haven't taking my evening medicine yet. as6 I'm ready to go home" . Vital Signs: 16:13 BP 211 / 83; Pulse 80; Resp 18; Temp 98.1(O); Pulse Ox 100% on R/A; Weight 77.11 kg; ld1 Height 5 ft. 1 in. (154.94 cm); Pain 8/10; 19:21 BP 214 / 91; Pulse 87; Resp 16 S; Pulse Ox 98% on R/A; as6 16:13 Body Mass Index 32.12 (77.11 kg, 154.94 cm) ld1 ED Course: 15:32 Patient arrived in ED. am2 15:32 Guanaco Andrews DO is Private Physician. am2 15:35 Gio Norman PA is PHCP. jmm 15:35 Christopher Peraza DO is Attending Physician. jmm 15:47 Triage completed. ld1 15:54 Pelvis XRAY In Process Unspecified. EDMS 15:54 Hip Right 2 View XRAY In Process Unspecified. EDMS 16:17 Arm band placed on right wrist. ld1 16:22 Kamilah Baez RN is Primary Nurse. jl7 16:45 Patient has correct armband on for positive identification. jl7 16:45 Patient did not have IV access during this emergency room visit. jl7 17:28 US Extremity Venous Unilateral Ltd In Process Unspecified. EDMS 18:49 Taj Vela MD is Referral Physician. jmm 19:21 Primary Nurse role handed off by Kamilah Baez RN mw2 19:22 No provider procedures requiring assistance completed. as6 Administered Medications: 16:36 Drug: Ketorolac 15 mg Route: IM; Site: right deltoid; jl7 19:21 Follow up: Response: No adverse reaction as6 19:15 Drug: HYDROcodone-acetaminophen 5 mg-325 mg 1 tabs Route: PO; as6 19:21 Follow up: Response: No adverse reaction as6 Medication: 16:45 VIS not applicable for this client. jl7 Outcome: 18:49 Discharge ordered by . jmm 19:22 Discharged to home via wheelchair, with family. as6 19:22 Condition: stable 19:22 Discharge instructions given to patient, Instructed on discharge instructions, follow up and referral plans. medication usage, Demonstrated understanding of instructions, follow-up care, medications, Prescriptions given X 2. 19:23 Patient left the ED. as6 Signatures: Dispatcher [employer] EDMS Gio Norman PA PA Kamilah Peguero RN RN jl7 Dedra Ramos am2 Kirill Cisneros mw2 Mary Terry RN RN ld1 Jerome Simon RN RN as6 Corrections: (The following items were deleted from the chart) 1548 15:47 PSHx: Total abdominal hysterectomy; 1 ld10 13:49 15:45 Chief complaint: Patient states: Walking dog in road - tripped and fell, hit head ld1 on concrete. C/O pain to back of head, knot on head \\T\\ left knee pain. ld1 15:45 Coronavirus screen: At this time, the client does not indicate any symptoms ld1 associated with coronavirus-19. ld1 15:45 Ebola Screen: No symptoms or risks identified at this time. 1 ld1 15:45 Initial Sepsis Screen: Does the patient meet any 2 criteria? No. Patient's ld1 initial sepsis screen is negative. Does the patient have a suspected source of infection? No. Patient's initial sepsis screen is negative. ld1 15:45 Risk Assessment: Do you want to hurt yourself or someone else? Patient reports no ld1 desire to harm self or others. 1 15:45 Onset of symptoms was November 05, 2022 at 15:47 ld1 ld1 :49 15:45 Method Of Arrival: Ambulatory [facility] ld 15:45 BP 132 / 64; Pulse 70bpm; Resp 18bpm; Pulse Ox 99% RA; Temp 97.9F Oral; 83.91 kg; ld1 Height 5 ft. 4 in.; BMI: 31.7; Pain 8/10; ld1 49 15:45 Acuity: PORFIRIO 3 ld1 ld 15:47 Allergies: No Known Allergies; ld1 15:47 Home Meds: amlodipine 10 mg tab 1 tab once daily [Inactive]; ld1 50 15:47 Home Meds: lisinopril-hydrochlorothiazide 20-12.5 mg Oral tab 1 tab once daily ld1 [Inactive]; ld10 13:50 15:47 Home Meds: Bystolic 10 mg Oral tab 1 tab once daily [Inactive]; ld1 50 15:47 Home Meds: Tresiba FlexTouch U-100 subcutaneous subcutaneous [Inactive]; ld1 :50 15:47 Home Meds: Humalog Pen Sub-Q [Inactive]; ld1 ld50 15:47 Home Meds: montelukast oral Oral [Inactive]; ld1 ld 15:47 Home Meds: Prednisone Oral [Inactive]; ld1 ld10 13: 15:47 Home Meds: Methotrexate Sodium Oral [Inactive]; ld1 ld 15:47 PMHx: Diabetes - NIDDM; ld1 ld 15:47 PMHx: Hypertension; ld1 ld1 :50 15:47 Immunization history: Adult Immunizations up to date, Client reports receiving ld1 the 2nd dose of the Covid vaccine, ld1 15:47 Social history: Smoking status: Patient denies any tobacco usage or history of. ld1 Patient/guardian denies using alcohol, ld1 15:47 General: Appears in no apparent distress. comfortable, Behavior is calm, ld1 cooperative, appropriate for age, ld1 15:47 Pain: Complains of pain in face and left leg Pain currently is 9 out of 10 on a ld1 pain scale. Quality of pain is described as throbbing, Pain began suddenly, ld1 15:47 EENT: No signs and/or symptoms were reported regarding the EENT system. ld1 ld1 15:47 Neuro: Level of Consciousness is awake, alert, obeys commands, Oriented to ld1 person, place, time, situation, Appropriate for age ld1 15:47 Cardiovascular: Capillary refill < 3 seconds Patient's skin is warm and dry. ld1 ld1 50 15:47 Respiratory: Airway is patent Respiratory effort is even, unlabored, ld1 ld1 :50 15:47 GI: Abdomen is flat, non-distended, ld1 ld1 :50 15:47 : No signs and/or symptoms were reported regarding the genitourinary system. ld1ld1 :50 15:47 Derm: No signs and/or symptoms reported regarding the dermatologic system. ld1 ld1 :50 15:47 Musculoskeletal: No signs and/or symptoms reported regarding the musculoskeletal ld1 system. ld1 15:47 Arm band placed on right wrist. ld1 ld1
--- NOTE | 2022-11-05 18:49 | EDPHYS ---
Physician Documentation [facility] Name: Kallie Rivera Age: 67 yrs Sex: Female : 1955 Arrival Date: 11/05/2022 Time: 15:32 Bed 11 Private MD: Darryl On License Of [facility] ED Physician Christopher Peraza HPI: 11/05 18:35 This 67 yrs old Female presents to ER via Ambulatory with complaints of Hip jmm Pain, Leg Pain - right. 18:35 The patient or guardian reports pain. This is a 67 year old female with a history fo jmm htn, dm, that presents to the ED with complaints of right hip pain beginning 6 days ago. Denies injury. Pain radiates down the right leg. Denies fever, denies chest pain, denies sob. . Historical: - Allergies: 16:15 No Known Allergies; ld1 - Home Meds: 16:15 Insulin: Regular Sub-Q [Active]; metoprolol tartrate 50 mg Oral tab 1 tab 2 times per ld1 day [Active]; losartan 25 mg oral tab 1 tab 2 times per day [Active]; amlodipine 10 mg tab 1 tab once daily [Active]; rosuvastatin 40 mg oral tab 1 tab once daily [Active]; Jardiance 25 mg oral tab 1 tab once daily [Active]; montelukast 10 mg oral tab 1 tab once daily [Active]; tresiba [Active]; - PMHx: 16:15 Hypertensive disorder; Diabetes mellitus; ld1 - PSHx: 16:17 Total abdominal hysterectomy; ld1 - Immunization history:: Adult Immunizations up to date, Client reports receiving the 2nd dose of the Covid vaccine. - Social history:: Smoking status: Patient denies any tobacco usage or history of. Patient/guardian denies using alcohol. ROS: 18:35 Constitutional: Negative for fever, chills, and weight loss, Cardiovascular: Negative jmm for chest pain, palpitations, and edema, Respiratory: Negative for shortness of breath, cough, wheezing, and pleuritic chest pain. 18:35 MS/extremity: Positive for pain. 18:35 All other systems are negative. Exam: 18:35 Constitutional: This is a well developed, well nourished patient who is awake, alert, jmm and in no acute distress. Head/Face: atraumatic. Eyes: EOMI, no conjunctival erythema appreciated ENT: Moist Mucus Membranes Neck: Trachea midline, Supple Chest/axilla: Normal chest wall appearance and motion. Cardiovascular: Regular rate and rhythm. No edema appreciated Respiratory: Normal respirations, no respiratory distress appreciated Abdomen/GI: Non distended Back: Normal ROM Skin: General appearance color normal 18:35 Musculoskeletal/extremity: FROM appreciated to the right hip, ttp at the right greater trochanter region, painful internal rotation, compartmentes are soft, NVI. 18:35 Skin: Appearance: Color: normal in color. 18:35 Neuro: Motor: is normal. 18:35 Psych: Behavior/mood is pleasant, cooperative. Vital Signs: 16:13 BP 211 / 83; Pulse 80; Resp 18; Temp 98.1(O); Pulse Ox 100% on R/A; Weight 77.11 kg; ld1 Height 5 ft. 1 in. (154.94 cm); Pain 8/10; 19:21 BP 214 / 91; Pulse 87; Resp 16 S; Pulse Ox 98% on R/A; as6 16:13 Body Mass Index 32.12 (77.11 kg, 154.94 cm) ld1 MDM: 15:38 Patient medically screened. [facility] 18:34 Data reviewed: vital signs, nurses notes. [facility] 18:38 I considered the following discharge prescriptions or medication management in the [facility] emergency department Medications were administered in the Emergency Department. See MAR. Independent interpretation of the following test(s) in the Emergency Department X-Ray: My interpretation is no fracture appreciated. Counseling: I had a detailed discussion with the patient and/or guardian regarding: the historical points, exam findings, and any diagnostic results supporting the discharge/admit diagnosis, radiology results, the need for outpatient follow up, to return to the emergency department if symptoms worsen or persist or if there are any questions or concerns that arise at home. 11/05 15:39 Order name: Pelvis XRAY; Complete Time: 16:06 [facility] 11/05 15:39 Order name: Hip Right 2 View XRAY; Complete Time: 16:06 [facility] 11/05 16:25 Order name: US Extremity Venous Unilateral Ltd; Complete Time: 18:08 [facility] Administered Medications: 16:36 Drug: Ketorolac 15 mg Route: IM; Site: right deltoid; jl7 19:21 Follow up: Response: No adverse reaction as6 19:15 Drug: HYDROcodone-acetaminophen 5 mg-325 mg 1 tabs Route: PO; as6 19:21 Follow up: Response: No adverse reaction as6 Disposition: 11/06 18:43 Co-signature as Attending Physician, Christopher Peraza DO I was immediately available on-site ms3 in the Emergency Department for consultation in the care of the patient. Disposition Summary: 11/05/22 18:49 Discharge Ordered Location: Home [facility] Condition: Stable [facility] Diagnosis - Pain in right hip [facility] Followup: [facility] - With: Taj Vela MD - When: 2 - 3 days - Reason: Recheck today's complaints, Continuance of care, Re-evaluation by your physician Discharge Instructions: - Discharge Summary Sheet [facility] - Hip Pain [facility] Forms: - Medication Reconciliation Form [facility] - Thank You Letter [facility] - Antibiotic Education [facility] - Prescription Opioid Use [facility] Prescriptions: - Ultracet 37.5-325 mg Oral Tablet - take 1 tablet by ORAL route every 6 hours - for up to 5 days; do not exceed 8 jmm tablets per day.; 12 tablet; Refills: 0, Product Selection Permitted - orphenadrine citrate 100 mg Oral Tablet Sustained Release - take 1 tablet by ORAL route 2 times per day As needed; 20 tablet; Refills: 0, jmm Product Selection Permitted Signatures: Dispatcher [employer] EDGio Olea PA PA jmm Leal, Jahala, RN RN jl7 Christopher Peraza DO DO ms3 Mary Terry RN RN ld1 Jerome Simon RN RN as6 Corrections: (The following items were deleted from the chart) 11/05 15:48 15:47 PSHx: Total abdominal hysterectomy; ld1 ld1 15:50 15:47 Allergies: No Known Allergies; ld1 ld1 15:50 15:47 Home Meds: amlodipine 10 mg tab 1 tab once daily [Inactive]; ld1 ld1 15:50 15:47 Home Meds: lisinopril-hydrochlorothiazide 20-12.5 mg Oral tab 1 tab once daily ld1 [Inactive]; ld1 15:50 15:47 Home Meds: Bystolic 10 mg Oral tab 1 tab once daily [Inactive]; ld1 ld1 : 15:47 Home Meds: Tresiba FlexTouch U-100 subcutaneous subcutaneous [Inactive]; ld1 ld1 :50 15:47 Home Meds: Humalog Pen Sub-Q [Inactive]; ld1 ld1 15:50 15:47 Home Meds: montelukast oral Oral [Inactive]; ld1 ld1 15:50 15:47 Home Meds: Prednisone Oral [Inactive]; ld1 ld1 :50 15:47 Home Meds: Methotrexate Sodium Oral [Inactive]; ld1 ld1 :50 15:47 PMHx: Diabetes - NIDDM; ld1 ld1 : 15:47 PMHx: Hypertension; ld1 ld1 15:50 15:47 Immunization history: Adult Immunizations up to date, Client reports receiving ld1 the 2nd dose of the Covid vaccine, ld1 : 15:47 Social history: Smoking status: Patient denies any tobacco usage or history of. ld1 Patient/guardian denies using alcohol, ld1
[2022-11-05] MEDS ORDERED: HYDROCODONE/APAP 5/325 MG TAB ONE (19:12)
== END 2022-11-05 19:23 | disposition home or self-care (01) ==
LOC: ER 15:29
DX: M25.551 Pain in right hip (principal); E11.9 Type 2 diabetes mellitus without complications; I10 Essential (primary) hypertension; Z79.4 Long term (current) use of insulin
CPT/HCPCS: 72170; 93971

== ENCOUNTER 2023-02-25 17:40 | Emergency (ER) | payer OTHER ==
--- OUTSIDE RECORDS SUMMARY | 2023-02-25 17:46 | XMS REPORT | Continuity of Care Document ---
:1955 Author Organization [facility] t Address [address] [place] [place] [address] Care Team Providers Name Role Phone Marilee Price DO Primary Care Physician Guanaco Andrews Attending Clinician Unavailable Marilee PRICE Attending Clinician Unavailable Nafisa Lindo MD Attending Clinician AYAN SONI Attending Clinician Unavailable AYAN SONI Admitting Clinician Unavailable Payers Payer Name Policy Type Policy Number Effective Date Expiration Date Edison mcbride AETNA 53 [id number] 2021 [facility] 00:00:[facility] - [facility] MEDICARE MB [id number] [facility] NOVITAS [facility] MEDICARE MB [id number] [facility] NOVITAS [facility] MEDICARE MB [id number] [facility] NOVITAS [facility] AETNA MEDICARE 53 [id number] [facility] PPO - [facility] MEDICARE MB [id number] [facility] NOVITAS [facility] Problems Condition Condition Condition Status Onset Resolution Last Treating Co mments Source Name Details Category Date Date Treatment Clinician Date Cryptogeni Cryptogeni Disease Active [facility] stroke c stroke 04-26 Colleg e 00:00: of 00 Medicin e Controlled Controlled Disease Active [facility] type 2 type 2 04-26 College diabetes diabetes 00:00: of mellitus mellitus 00 Medici n without without e complicati complicati on, with on, with long-term long-term current current use of use of insulin insulin CVA CVA Disease Recurre [facility] (cerebral (cerebral nce 04-02 [facility] vascular vascular 00:00: Medica l accident) accident) 00 Cent er Diabetic Diabetic Disease Recurre [facility] neuropathy neuropathy nce 04-01 Fozia kes associated associated 00:00: Me dical with type with type 00 Cent er 2 diabetes 2 diabetes mellitus mellitus business records manager long-term Disease Recurre [facility] (current) (current) nce 04-01 [facility] use of use of 00:00: Medical insulin insulin 00 Center Type 2 Type [address] [facility] diabetes diabetes nce 04-01 [facility] mellitus mellitus 00:00: Medica l with with 00 Center hyperglyce hyperglyce mira mira Essential Essential Disease Active [facility] hypertensi hypertensi 04-01 Fozia kes on on 00:00: Medical 00 [place] Mixed Mixed Disease Active [facility] hyperlipid hyperlipid 04-01 Fozia kes emia emia 00:00: Medical 00 [place] Osteoarthr Osteoarthr Disease Active [facility] itis of itis of 04-01 kes multiple multiple 00:00: Medica l joints joints 00 Center History of History of Disease Active [facility] acute acute 04-01 [facility] pancreatit pancreatit 00:00: Me dical is is 00 [place] Vertigo Vertigo Disease Active [facility] 04 [facility] 00:[facility]: Medical 00 [place] Nausea & Nausea & Disease Active [facility] t vomiting vomiting 04-01 [facility] 00:00: Medical 00 [place] [id number] Sciatica Problem Commo n of left Spirit side [facility] [id number] Arthritis, Problem Co mmon lumbar Spirit spine - [facility] [id number] Primary Problem Comm on osteoarthr Spirit itis of - [facility] left hip [facility] [id number] Varicose Problem Com mon [id number] veins of Spirit right - [facility] lower extremity [facility] with pain Medical [place] Essential Benign Problem Common hypertensi essential Spi rit on HTN - [facility] Diabetes Diabetes Problem Commo n mellitus DMII Spirit without without - [facility] complicati complicati St on [facility] 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, Sp filomena failure symptomati - CHI c [facility] [id number] Seasonal Problem Commo n allergic Spirit rhinitis - [facility] due to [facility] Calculus Calculus Problem Commo n of kidney of kidney Spir it and ureter and ureter - [facility] [id number] Tinea Problem Common pedis of Spirit both feet - [facility] [id number] Seasonal Problem Comm on allergic Spirit rhinitis, - [facility] unspecifie [facility] Rheumatoid [facility]umat[facility] arthritis arthritis Spir it - [facility] Hyperglyce Hyperglyce Problem C [facility] mira mira [facility] [id number] Type 2 Problem Common diabetes [facility] mellitus - 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 diabetes with mellitus diabetic [facility] polyneurop Medica l [facility] [id number] Decreased Problem Com mon hearing of Spirit left ear [facility] Osteopenia Osteopenia Problem C ommon Spirit [facility] [id number] Tinnitus Problem Commo n of left [facility] ear [facility] Accelerate Accelerate Problem C ommon d d Spirit essential essential - CH I hypertensi hypertensi St on on [facility] [id number] Nonalcohol Problem C ommon ic fatty Spirit liver - CHI disease [facility] [id number] Primary Problem Comm on osteoarthr Spirit itis of - [facility]I right knee [facility] [id number] Diabetic Problem Comm on neuropathi Spirit c - [facility]I arthropath [facility] [id number] Other Problem Common obesity Spirit due to - CHI excess [facility] [id number] Body mass Problem Com mon index Spirit [BMI] - [facility] 30.0-30.9, [facility] Obese Obese Problem [facility] - [facility] [id number] Rheumatoid Problem Co mmon arthritis Spirit involving - [facility] multiple [facility] unspecifie Medica [facility] rheumatoid factor present Diabetic Diabetic Problem Commo n neuropathy neuropathy Sp filomena - [facility] [id number] Cerebral Problem Commo n infarction Spirit , - [facility] unspecifie [facility] [id number] History of Problem Co mmon cerebrovas Spirit cular - [facility]I accident (CVA) with [facility] Center [id number] Need for Problem Comm on assistance Spirit due to - [facility] unsteady [facility] Allergies, Adverse Reactions, Alerts This patient has no known allergies or adverse reactions. Family History Family Member Diagnosis Comments Start Date Stop Date Source Natural mother Stroke [facility] Natural mother Cardiomyopathy [facility] Natural father Cancer [facility] Social History Social Habit Start Date Stop Date Quantity Comments Source History [facility] Alcohol Std Drinks [facility] History [facility] Alcohol Binge Medical Yare[facility] ter History of Tobacco [facility] - Use [facility] Sex Assigned At [facility] filoemna - [facility] History [facility] Alcohol Comment Medical C enter Alcohol intake 2019-04-01 2019-04-[address] [facility] Edison Hernandez 00:00:00 00:00:00 of alcohol Medical Center (finding) History SDOH 2019-04-01 2019-04-01 2 [facility] Alcohol Frequency 00:00:00 00:00:00 Medical Center Smoking Status Start Date Stop Date Source Never Smoker Common [facility] Medications Ordered Filled Start Stop Current Ordering Indication Dosage Frequency Signature Comments Components Source Medication Medication Date Date Medication? Clinician (SIG) Name Name Ozempic (1 Ozempic ( No Ozempic (1 MG/DOSE) 4 MG/DOSE) 4 4-20 MG/DOSE) 4 MG/3ML MG/3ML 00:00: MG/3ML 00 Pregabalin Pregabalin 2022-0 No Pregabalin 75 MG 75 MG 4-20 75 MG 00:00: 00 Ozempic (1 Ozempic ( No Ozempic (1 MG/DOSE) 4 MG/DOSE) 4 4-20 MG/DOSE) 4 MG/3ML MG/3ML 00:00: MG/3ML 00 Pregabalin Pregabalin 0 No Pregabalin 75 MG 75 MG 4-20 75 MG 00:00: 00 Pregabalin Pregabalin 2021-09 No Pregabalin 75 MG 75 MG 1-16 75 MG 00:00: 00 Azelastine Azelastine 0 No 1{drop_ Azelastine HCl 0.05 % HCl 0.05 % -22 into_af HCl 0.05 % 00:00: fected_ 00 eye} Lyrica 75 Lyrica 75 0 No 1{capsu BID Lyrica 75 MG MG [...] 00 :00 MG/5ML Lyrica 75 Lyrica 75 2020-09 No 1{capsu BID Lyrica 75 MG MG [...] 00:00: 00 Bactrim DS Bactrim DS 2020-0 1- No 1{table BID Bactrim DS 800-160 MG 800-160 MG 03-29 t} 800-160 MG 00:00: 00:00 00 :00 Ketoconazol Ketoconazol 2020-0 1- No 1{appli BID Ketoconazo e 2 % e 2 % 03-29 cation_ le 2 % 00:00: 00:00 to_affe 00 :00 cted_ar ea} Meclizine Meclizine 2020-0 No Meclizine HCl 12.5 [...] HCl 12.5 00:00: MG 00 Augmentin Augmentin 2020-0 2020- No Na Price 1 tablet Common 6-17 06-24 Spirit 00:00: 00:00 - CHI 00 :00 [facility] Tamiflu Tamiflu 2020-0 Yes Na Price 1 capsule Common 2-24 Spirit 00:00: - CHI 00 [facility] Tamiflu 75 Tamiflu 75 2020-0 [...] MG 2-24 le} MG 00:00: 00 Clopidogrel 2019-0 Yes Take by [place] beckie & Aspirin 9-06 mouth College 75 & 81 MG 15:45: daily. of THPK 35 Medicin e Insulin 2018-0 Yes Inject Roderick Degludec 9-06 into the College (TRESIBA 15:43: skin of FLEXTOUCH) 58 daily. Medicin 100 UNIT/ML e SOPN insulin 2018-0 Yes 4U Inject 4 Roderick lispro 9-06 Units into [place] (HUMALOG) 15:43: the skin of 100 UNIT/ML 58 daily. Medici n injection e pregabalin 0 Yes 75mg Take 75 mg B aylor (LYRICA) 75 9-06 by mouth Erica ege MG capsule 15:43: daily. of 58 Medicin e clopidogrel 2018- 2020- No 75mg Take 75 mg Roderick (PLAVIX) 75 7-07 07-07 by mouth Col lege MG tablet 00:00: 04:59 daily. of 00 :00 Medicin e pregabalin 0 Yes 75mg QD Take [address] (LYRICA) 75 7-06 by mouth Luke s MG capsule 13:30: nightly. Med ical [address] [place] [address] nebivolol Yes 10mg QD Take [address] (BYSTOLIC) 7-06 by mouth [facility] 10 MG 13:30: daily. Medical tablet 00 [place] insulin Yes Inject [facility] degludec 7-06 [...] 10 MG 13:30: daily. Medical tablet 00 [place] pregabalin 2018-0 Yes 75mg QD Take [address] (LYRICA) 75 7-06 by mouth Luke s MG capsule 13:30: nightly. Med ical 00 [place] nebivolol Yes 10mg QD Take [address] (BYSTOLIC) 7-06 by mouth [facility] 10 MG 13:30: daily. Medical tablet 00 [place] insulin [address] [facility] degludec 7-06 subcutaneo [facility]ukes (TRESIBA 13:30: usly 60 Medica l FLEXTOUCH 00 units in Center U-100) 100 the day unit/mL (3 and 40 mL) InPn units at night . insulin 2018- Yes 4U Inject [address] lispro 7-06 Units [facility]ukes (HUMALOG) 13:30: subcutaneo Me dical 100 unit/mL 00 usly 3 Center injection (three) times daily before meals. amLODIPine Yes 10mg QD Take [address] (NORVASC) 7 by mouth [facility] 10 MG 13:30: daily. Medical tablet 00 [place] meclizine Yes 3 times [place] [facility] (ANTIVERT) 7-06 daily. College 12.5 MG 00:00: of tablet 00 Medicin e atorvastati Yes 40mg QD Take [address] n (LIPITOR) 6- by mouth Luke s 40 MG 00:00: daily. Medical tablet 00 [place] atorvastati Yes 40mg Take 40 mg Roderick n (LIPITOR) 6-01 by mouth Erica ege 40 MG 00:00: daily. of tablet 00 Medicin e Ergocalcife Yes daily. [place] [id number] 6- College units CAPS 00:00: of 00 Medicin e atorvastati Yes 40mg QD Take [address] n (LIPITOR) 6-01 by mouth Luke s 40 MG 00:00: daily. Medical tablet 00 [place] FreeStyle FreeStyle Yes Na Price as Common Ishmael 14 Ishmael 14 -08 directed Spi rit Day [place] 00:00: - [facility] FreeStyle FreeStyle No QD FreeStyle Ishmael 14 Ishmael 14 -08 Ishmael 14 Day [place] Day [place] 00:00: Day [place] - - - FreeStyle FreeStyle No QD FreeStyle Ishmael 14 Ishmael 14 -08 Ishmael 14 Day [place] Day [place] 00:00: Day [place] - - 00 - FreeStyle FreeStyle No QD FreeStyle Ishmael 14 Ishmael 14 -08 Ishmael 14 Day [place] Day [place] 00:00: Day [place] - - 00 - FreeStyle FreeStyle 2019-0 No QD FreeStyle Ishmael 14 Ishmael 14 5-08 Ishmael 14 Day [place] Day [place] 00:00: Day [place] - - 00 - FreeStyle FreeStyle 2019-0 No QD Ishmael 14 Ihsmael 14 5-08 Day [place] Day [place] 00:00: - - 00 FreeStyle FreeStyle 2019-0 No QD FreeStyle Ishmael 14 Ishmael 14 5-08 Ishmael 14 Day [place] Day [place] 00:00: Day [place] - - 00 - FreeStyle FreeStyle 2019-0 No QD FreeStyle Ishmael 14 Ishmael 14 5-08 Ishmael 14 Day [place] Day [place] 00:00: Day [place] - - 00 - FreeStyle FreeStyle 2019-0 No QD FreeStyle Ishmael 14 Ishmael 14 5-08 Ishmael 14 Day [place] Day [place] 00:00: Day [place] - - 00 - FreeStyle FreeStyle 2019-0 No QD FreeStyle Ishmael 14 Ishmael 14 5-08 Ishmael 14 Day [place] Day [place] 00:00: Day [place] - - 00 - FreeStyle FreeStyle 2019-0 No QD FreeStyle Ishmael 14 Ishmael 14 5-08 Ishmael 14 Day [place] Day [place] 00:00: Day [place] - - 00 - FreeStyle FreeStyle 2019-0 No QD FreeStyle Ishmael 14 Ishmael 14 5-08 Ishmael 14 Day [place] Day [place] 00:00: Day [place] - - 00 - FreeStyle FreeStyle 2019-0 No QD FreeStyle Ishmael 14 Ishmael 14 5-08 Ishmael 14 Day [place] Day [place] 00:00: Day [place] - - 00 - FreeStyle FreeStyle 2019-0 No QD FreeStyle Ishmael 14 Ishmael 14 5-08 Ishmael 14 Day [place] Day [place] 00:00: Day [place] - - 00 - FreeStyle FreeStyle 2019-0 No QD FreeStyle Ishmael 14 Ishmael 14 5-08 Ishmael 14 Day [place] Day [place] 00:00: Day [place] - - 00 - FreeStyle FreeStyle 2019-0 No QD FreeStyle Ishmael 14 Ishmael 14 5-08 Ishmael 14 Day [place] Day [place] 00:00: Day [place] - - 00 - FreeStyle FreeStyle 2019-0 No QD FreeStyle Ishmael 14 Ishmael 14 5-08 Ishmael 14 Day [place] Day [place] 00:00: Day [place] - - 00 - Clindamycin Clindamycin 2019-0 Yes Na Price 1 capsule Common HCl HCl 2-11 Spirit 00:00: - CHI 00 [facility] Clindamycin Clindamycin 2019-0 No 1{capsu [...] HCl 300 00:00: MG 00 Clindamycin Clindamycin 20190 No 1{capsu TID Clindamyci HCl 300 MG HCl 300 MG 2-11 le} n HCl 300 00:00: MG 00 Clindamycin Clindamycin 20190 No 1{capsu TID Clindamyci HCl 300 MG HCl 300 MG 2-11 le} n HCl 300 00:00: MG 00 Clindamycin Clindamycin 0 No 1{capsu TID Clindamyci HCl 300 MG HCl 300 MG 2-11 le} n HCl 300 00:00: MG 00 Clindamycin Clindamycin 0 No 1{capsu TID Clindamyci HCl 300 MG HCl 300 MG 2-11 le} n HCl 300 00:00: MG 00 One Touch One Touch 2017-09 2020- No Na Price as Common Ultra Test Ultra Test 2-27 05-21 directed Spirit Strips Strips 00:00: 00:00 - CHI 00 :00 [facility] montelukast 20180 Yes 10mg QD Take [address] (SINGULAIR) 4-30 by mouth Luke s 4 MG 00:00: daily. Medical chewable 00 [place] tablet montelukast 20180 Yes 10mg Take 10 mg Roderick (SINGULAIR) 4-30 by mouth Erica ege 4 MG 00:00: daily. of chewable 00 Medicin tablet e Flonase Flonase 0 Yes Na Price 2 spray in Common 4-30 each Spirit 00:00: nostril - [facility] montelukast 20180 Yes 10mg QD Take [address] (SINGULAIR) 4-30 by mouth Luke s 4 MG 00:00: daily. Medical chewable 00 Center tablet Kenalog Kenalog 0 No 40mg Common (Triamcinol (Triamcinol 4-03 S pirit one) one) 00:00: - [facility] 2018-0 No 40mg Common (Triamcinol (Triamcinol 4-03 S pirit one) one) 00:00: - CHI 00 [facility] Kenalog Kenalog 0 No 40mg Common (Triamcinol (Triamcinol 4-03 S pirit one) one) 00:00: - CHI 00 [facility] Bernie Gibbs 2017-0 No 40mg Common (Triamcinol (Triamcinol 4-03 S pirit one) one) 00:00: - CHI 00 [facility] Bernie Gibbs 2017-0 No 40mg Common (Triamcinol (Triamcinol 4-03 S pirit one) one) 00:00: - [facility]I 00 [facility] 2017-0 No 40mg Common (Triamcinol (Triamcinol 4-03 S pirit one) one) 00:00: - CHI 00 [facility] Bernie Kenofe 2017-0 No 40mg Common (Triamcinol (Triamcinol 4-03 S pirit one) one) 00:00: - CHI 00 [facility] Bernie Gibbs 2017-0 No 40mg Common (Triamcinol (Triamcinol 4-03 S pirit one) one) 00:00: - [facility]I 00 [facility] Bernie 0 No 40mg Common (Triamcinol (Triamcinol 4-03 S pirit one) one) 00:00: - CHI 00 [facility] Bernie Kenofe 2017-0 No 40mg Common (Triamcinol (Triamcinol 4-03 S pirit one) one) 00:00: - CHI 00 [facility] Bernie Gibbs 0 No 40mg Common (Triamcinol (Triamcinol 4-03 S pirit one) one) 00:00: - CHI 00 [facility] amlodipine 2014-09 Yes 10mg Take 10 mg [facility] (NORVASC) 2-04 by mouth Colleg e 10 MG 00:00: daily. of tablet 00 Medicin e Nebivolol 2014-09 Yes 10mg Take 10 mg Ba ylor HCl 10 MG 2-04 by mouth Colleg e TABS 00:00: daily. of 00 Medicin e FreeStyle FreeStyle Yes Na Price as Co mmon Ishmael 14 Ishmael 14 directed Spi rit Day Sensor Day Sensor - C HI [facility] Singulair Singulair Yes Na Price 1 tablet Common in the Spirit evening - [facility] Lyrica Lyrica Yes Na Price 1 capsule Com mon [facility] Jardiance Jardiance Yes Na Price 1 tablet Common [facility] Amlodipine Amlodipine Yes Na Price 1 tablet Common Besylate Besylate [facility] NovoLog NovoLog Yes Na Price as Common Flexpen Flexpen directed [facility] Aspir-Low Aspir-Low Yes Na Price 1 tablet Common [facility] Metoprolol Metoprolol Yes Na Price 1 tablet Common Tartrate Tartrate with food Sp filomena - [facility] OneTouch OneTouch Yes Na Price USE TO Co mmon Ultra Test Ultra Test CHECK Sp [facility] TWICE A DAY [facility] Losartan Losartan Yes Na Price 1 tablet Common Potassium Potassium [facility] Yes Na Price 65 units Co mmon FlexTouch FlexTouch in AM and Spirit 55 units - CHI in PM and St titrate up [facility] 2 units Medical every 3 Center days until FBG less than 100 ( max of 150 U daily) Humalog Humalog Yes Na Price 4 units Com mon KwikPen KwikPen before Spirit meals [facility] BD Pen BD Pen Yes Na Price as Common Needle Myrtle Needle Myrtle directed Spirit U/F U/F - [facility] Atorvastati Atorvastati Yes Na Price 1 tablet Common n Calcium n Calcium [facility] Amlodipine Amlodipine Yes Na Price 1 tablet Common Besylate Besylate [facility] Losartan Losartan Yes Na Price 1 tablet Common Potassium Potassium [facility] Treba Tresiba No QD Tresiba FlexTouch FlexTouch FlexTouch [...] % HCl 0.05 % HCl 0.05 % Losartan Losartan No QD Losartan Potassium Potassium Potassium 25 MG 25 MG 25 MG amLODIPine amLODIPine No 1{table QD amLODIPine Besylate 10 Besylate 10 t} Besylate MG MG 10 MG Crestor 40 Crestor 40 No 1{table QD Crestor 40 MG MG t} MG Jardiance Jardiance No 1{table QD Jardiance 25 MG 25 MG t} 25 MG Tresiba Tresiba No QD Tresiba FlexTouch FlexTouch FlexTouch 200 UNIT/ML 200 UNIT/ML 200 UNIT/ML Metoprolol Metoprolol No 1{table BID Metoprolol Tartrate Tartrate t_with_ Tartrate 100 MG 100 MG food} 100 MG OneTouch OneTouch No OneTouch Ultra Test Ultra Test Ultra Test - - - Montelukast Montelukast No Montelukas Sodium 10 Sodium 10 t Sodium MG MG 10 MG HumaLOG HumaLOG No TID HumaLOG KwikPen 100 KwikPen 100 KwikPen UNIT/ML UNIT/ML 100 UNIT/ML Losartan Losartan No QD Losartan Potassium Potassium Potassium 25 MG 25 MG 25 MG amLODIPine amLODIPine No 1{table QD amLODIPine Besylate 10 Besylate 10 t} Besylate MG MG 10 MG Crestor 40 Crestor 40 No 1{table QD Crestor 40 MG MG t} MG Jardiance Jardiance No 1{table QD Jardiance 25 MG 25 MG t} 25 MG Tresiba Tresiba No QD Tresiba FlexTouch FlexTouch FlexTouch 200 UNIT/ML 200 UNIT/ML 200 UNIT/ML Metoprolol Metoprolol No 1{table BID Metoprolol Tartrate Tartrate t_with_ Tartrate 100 MG 100 MG food} 100 MG OneTouch OneTouch No OneTouch Ultra Test Ultra Test Ultra Test - - - Montelukast Montelukast No Montelukas Sodium 10 Sodium 10 t Sodium MG MG 10 MG HumaLOG HumaLOG No TID HumaLOG KwikPen [...] Date Status Commen ts Source Name Name Prevnar 20 (PCV20) Prevnar 20 (PCV20) 2023-01-16 Completed [facility] 10:04:[facility] Prevnar 20 (PCV20) Prevnar 20 (PCV20) 2023-01-16 Completed [facility] 10:04:00 [facility] [address] COVID19 2021-10-03 Completed Co mmon [facility] Vaccine (Low Dose Vaccine (Low Dose 12:00:00 - [facility] Booster[facility] Booster) [facility] [address] COVID19 2021-10-03 Completed Co mmon [facility] Vaccine (Low Dose Vaccine (Low Dose 12:00:00 - [facility] Booster[facility] Booster) [facility] [address] [facility]-10-03 Completed Co mmon [facility] Vaccine (Low Dose Vaccine (Low Dose 12:00:00 - [facility] Booster) Booster) [facility] [address] [facility] 2021-10-03 Completed Co mmon [facility] Vaccine (Low Dose Vaccine (Low Dose 12:00:00 - [facility] Booster) Booster) [facility] [address] [facility] 2021-10-03 Completed Co mmon [facility] Vaccine (Low Dose Vaccine (Low Dose 12:00:00 - [facility] Booster) Booster) [facility] [address] [facility] 2021-10-03 Completed Co mmon [facility] Vaccine (Low Dose Vaccine (Low Dose 12:00:00 - [facility] Booster) Booster) [facility] [address] [facility] 2021-10-03 Completed Co mmon [facility] Vaccine (Low Dose Vaccine (Low Dose 12:00:00 - [facility] Booster) Booster) [facility] [address] [facility] 2021-10-03 Completed Co mmon [facility] Vaccine (Low Dose Vaccine (Low Dose 12:00:00 - [facility] Booster) Booster) [facility] [address] [facility] 2021-10-03 Completed Co mmon [facility] Vaccine (Low Dose Vaccine (Low Dose 12:00:00 - [facility] Booster) Booster) [facility] [address] COVID19 2021-10-03 Completed Co mmon [facility] Vaccine (Low Dose Vaccine (Low Dose 12:00:00 - [facility] Booster) Booster) [facility] [address] [facility] 2021-10-03 Completed Co mmon [facility] Vaccine (Low Dose Vaccine (Low Dose 12:00:00 - [facility] Booster) Booster) [facility] COVID19 Moderna COVID-19 2021-10-03 Completed Co mmon [facility] Vaccine (Low Dose Vaccine (Low Dose 12:00:00 - [facility] Booster) Booster) [facility] COVID19 Moderna COVID-19 2021-10-03 Completed Co mmon [facility] Vaccine (Low Dose Vaccine (Low Dose 12:00:00 - [facility] Booster[facility] FluAD FluAD 2021-07-03 Completed [facility] 12:04:00 - [facility] FluAD FluAD 2021-07-03 Completed [facility] 12:04:00 - [facility] FluAD FluAD 2021-07-03 Completed [facility] 12:04: - [facility] FluAD FluAD 2021-07-03 Completed [facility] 12:04:00 - [facility] FluAD FluAD 2021-07-03 Completed [facility] 12:04:00 [facility] FluAD FluAD 2021-07-03 Completed [facility] 12:04:00 - [facility] FluAD FluAD 2021-07-03 Completed [facility] 12:04:00 - [facility] FluAD FluAD 2021-07-03 Completed [facility] 12:04:00 [facility] FluAD FluAD 2021-07-03 Completed [facility] 12:04:00 [facility] FluAD FluAD 2021-07-03 [facility] 12:04:00 [facility] FluAD FluAD 2021-07-03 [facility] 12:04:00 [facility] FluAD FluAD 2021-07-03 [facility] 12:04:00 [facility] FluAD FluAD 2021-07-03 [facility] 12:04:00 [facility] FluAD FluAD 2021-07-03 [facility] 12:04:00 [facility] FluAD FluAD 2021-07-03 [facility] 12:04:00 [facility] FluAD FluAD 2021-07-03 [facility] 12:04:00 [facility] FluAD FluAD 2021-07-03 [facility] 12:04:00 - [facility] FluAD FluAD 2020-06-15 [facility] 08:51:00 - [facility] FluAD FluAD 2020-06-15 [facility] 08:51:00 - [facility] FluAD FluAD 2020-06-15 [facility] 08:51:00 - [facility] FluAD FluAD 2020-06-15 [facility] 08:51:00 - [facility] FluAD FluAD 2020-06-15 [facility] 08:51:00 - [facility] FluAD FluAD 2020-06-15 [facility] 08:51:00 - [facility] FluAD FluAD 2020-06-15 [facility] 08:51:00 - [facility] FluAD FluAD 2020-06-15 [facility] 08:51:00 - [facility] FluAD FluAD 2020-06-15 [facility] 08:51:00 - [facility] FluAD FluAD 2020-06-15 [facility] 08:51:00 - [facility] FluAD FluAD 2020-06-15 [facility] 08:51:00 - [facility] FluAD FluAD 2020-06-15 [facility] 08:51:00 - [facility] FluAD FluAD 2020-06-15 [facility] 08:51:00 - [facility] FluAD FluAD 2020-06-15 [facility] 08:51:00 - [facility] FluAD FluAD 2020-06-15 [facility] 08:51:00 - [facility] FluAD FluAD 2020-06-15 [facility] 08:51:00 - [facility] FluAD FluAD 2020-06-15 [facility] 08:51:00 - [facility] FluAD FluAD 2020-06-15 [facility] 08:51:00 - [facility] FluAD FluAD 2020-06-15 [facility] 08:47:00 - [facility] FluAD FluAD 2020-06-15 [facility] 08:47:00 - [facility] FluAD FluAD 2020-06-15 [facility] 08:47:00 - [facility] FluAD FluAD 2020-06-15 [facility] 08:47:00 - [facility] FluAD FluAD 2020-06-15 [facility] 08:47:00 - [facility] FluAD FluAD 2020-06-15 [facility] 08:47:00 - [facility] FluAD FluAD 2020-06-15 [facility] 08:47:00 - [facility] FluAD FluAD 2020-06-15 [facility] 08:47:00 - [facility] FluAD FluAD 2020-06-15 [facility] 08:47:00 - [facility] FluAD FluAD 2020-06-15 [facility] 08:47:00 - [facility] FluAD FluAD 2020-06-15 [facility] 08:47:00 - [facility] FluAD FluAD 2020-06-15 [facility] 08:47:00 - [facility] FluAD FluAD 2020-06-15 [facility] 08:47:00 - [facility] FluAD FluAD 2020-06-15 [facility] 08:47:00 - [facility] FluAD FluAD 2020-06-15 [facility] 08:47:00 - [facility] FluAD FluAD 2020-06-15 [facility] 08:47:00 - [facility] FluAD FluAD 2020-06-15 [facility] 08:47:00 - [facility] FluAD FluAD 2020-06-15 [facility] 08:47:00 - [facility] FluAD FluAD 2019-08-19 [facility] 09:25:00 - [facility] FluAD FluAD 2019-08-19 [facility] 09:25:00 - [facility] FluAD FluAD 2019-08-19 [facility] 09:25:00 - [facility] FluAD FluAD 2019-08-19 [facility] 09:25:00 - [facility] FluAD FluAD 2019-08-19 [facility] 09:25:00 - [facility] FluAD FluAD 2019-08-19 [facility] 09:25:00 - [facility] FluAD FluAD 2019-08-19 [facility] 09:25:00 - [facility] FluAD FluAD 2019-08-19 [facility] 09:25:00 - [facility] FluAD FluAD 2019-08-19 [facility] 09:25:00 - [facility] FluAD FluAD 2019-08-19 [facility] 09:25:00 - [facility] FluAD FluAD 2019-08-19 [facility] 09:25:00 - [facility] FluAD FluAD 2019-08-19 [facility] 09:25:00 - [facility] FluAD FluAD 2019-08-19 [facility] 09:25:00 - [facility] FluAD FluAD 2019-08-19 [facility] 09:25:00 - [facility] FluAD FluAD 2019-08-19 [facility] 09:25:00 - [facility] FluAD FluAD 2019-08-19 [facility] 09:25:00 - [facility] FluAD FluAD 2019-08-19 [facility] 09:25:00 - [facility] FluAD FluAD 2019-08-19 [facility] 09:25:00 - [facility] FluAD FluAD 2019-08-19 [facility] 00:00:00 - [facility] Afluria Afluria 2018-08-07 [facility]pleted [facility] 09:25:00 - [facility] Afluria Afluria 2018-08-07 [facility] 09:25:00 - [facility] Afluria Afluria 2018-08-07 [facility] 09:25:00 - [facility] Afluria Afluria 2018-08-07 [facility] 09:25:00 - [facility] Afluria Afluria 2018-08-07 [facility] 09:25:00 - [facility] Afluria Afluria 2018-08-07 [facility] 09:25:00 - [facility] Afluria Afluria 2018-08-07 [facility] 09:25:00 - [facility] Afluria Afluria 2018-08-07 [facility] 09:25:00 - [facility] Afluria Afluria 2018-08-07 [facility] 09:25:00 - [facility] Afluria Afluria 2018-08-07 [facility] 09:25:00 - [facility] Afluria Afluria 2018-08-07 [facility]pleted [facility] 09:25:00 - [facility] Afluria Afluria 2018-08-07 [facility] 09:25:00 - [facility] Afluria Afluria 2018-08-07 [facility] 09:25:00 - [facility] Afluria Afluria 2018-08-07 [facility] 09:25:00 - [facility] Afluria Afluria 2018-08-07 [facility] 09:25:00 - [facility] Afluria Afluria 2018-08-07 [facility] 09:25:00 - [facility] Afluria Afluria 2018-08-07 [facility]pleted [facility] 09:25:00 - [facility] Afluria Afluria 2018-08-07 [facility] 09:25:00 [facility] Kenalog Kenalog 2017-12-30 [facility] (Triamcinolone) (Triamcinolone) 10:08:00 [facility] Kenalog Kenalog 2017-12-30 Completed [facility] (Triamcinolone) (Triamcinolone) 10:08:00 [facility] Vital Signs Vital Name Observation Time Observation Value Comments Source height 2022-03-22 14:30:00 61.00 [in_i] [facility] weight 2022-03-22 14:30:00 164.8 [lb_av] [facility] temperature 2022-03-22 14:30:00 97.8 [degF] [facility] bmi 2022-03-22 14:30:00 31.14 kg/m2 [facility] oximetry 2022-03-22 14:30:00 96 % [facility] respiratory rate 2022-03-22 14:30:00 16 /min Comm on [facility] blood pressure 2022-03-22 14:30:00 138 mm[Hg] [facility] - systolic [facility] blood pressure 2022-03-22 14:30:00 68 mm[Hg] [facility] - diastolic [facility] height 2022-03-22 15:00:00 61.00 [in_i] [facility] weight 2022-03-22 15:00:00 164.8 [lb_av] [facility] temperature 2022-03-22 15:00:00 97.8 [degF] [facility] bmi 2022-03-22 15:00:00 31.14 kg/m2 [facility] oximetry 2022-03-22 15:00:00 96 % [facility] respiratory rate 2022-03-22 15:00:00 16 /min Comm on [facility] blood pressure 2022-03-22 15:00:00 138 mm[Hg] [facility] - systolic [facility] blood pressure 2022-03-22 15:00:00 68 mm[Hg] [facility] - diastolic [facility] height 2021-11-20 09:00:00 61.00 [in_i] [facility] weight 2021-11-20 09:00:00 164.0 [lb_av] [facility] temperature 2021-11-20 09:00:00 97.8 [degF] [facility] bmi 2021-11-20 09:00:00 30.98 kg/m2 [facility] oximetry 2021-11-20 09:00:00 96 % [facility] respiratory rate 2021-11-20 09:00:00 16 /min Comm on [facility] blood pressure 2021-11-20 09:00:00 137 mm[Hg] [facility] - systolic [facility] blood pressure 2021-11-20 09:00:00 60 mm[Hg] [facility] - diastolic [facility] height 2021-10-04 11:20:00 61.00 [in_i] [facility] weight 2021-10-04 11:20:00 164.8 [lb_av] [facility] temperature 2021-10-04 11:20:00 97.9 [degF] [facility] bmi 2021-10-04 11:20:00 31.14 kg/m2 [facility] oximetry 2021-10-04 11:20:00 95 % [facility] respiratory rate 2021-10-04 11:20:00 16 /min Comm on [facility] blood pressure 2021-10-04 11:20:00 120 mm[Hg] [facility] - systolic [facility] blood pressure 2021-10-04 11:20:00 58 mm[Hg] [facility] - diastolic [facility] height 2021-07-03 11:20:00 61.00 [in_i] [facility] weight 2021-07-03 11:20:00 165 [lb_av] [facility] temperature 2021-07-03 11:20:00 97.3 [degF] [facility] bmi 2021-07-03 11:20:00 31.17 kg/m2 [facility] oximetry 2021-07-03 11:20:00 96 % [facility] respiratory rate 2021-07-03 11:20:00 20 /min Comm on [facility] blood pressure 2021-07-03 11:20:00 128 mm[Hg] [facility] - systolic [facility] blood pressure 2021-07-03 11:20:00 78 mm[Hg] [facility] - diastolic [facility] height 2021-03-29 13:20:00 61.00 [in_i] [facility] weight 2021-03-29 13:20:00 169 [lb_av] [facility] temperature 2021-03-29 13:20:00 97.4 [degF] [facility] bmi 2021-03-29 13:20:00 31.93 kg/m2 [facility] oximetry 2021-03-29 13:20:00 97 % [facility] respiratory rate 2021-03-29 13:20:00 16 /min Comm on [facility] blood pressure 2021-03-29 13:20:00 136 mm[Hg] [facility] - systolic [facility] blood pressure 2021-03-29 13:20:00 78 mm[Hg] [facility] - diastolic [facility] Systolic blood 2019-06-04 15:36:00 125 mm[Hg] [facility] pressure Medicine Diastolic blood 2019-06-04 15:36:00 71 mm[Hg] [facility] of pressure Medicine Heart rate 2019-06-04 15:36:00 77 /min [facility] ollege of Medicine Body height 2019-06-04 15:36:[facility] Body weight 2019-06-04 15:36:00 77.565 [facility] BMI 2019-06-04 15:36:00 31.28 kg[facility]m2 [facility] Systolic blood 2019-06-04 15:36:00 125 mm[Hg] [facility] of pressure Medicine Diastolic blood 2019-06-04 15:36:00 71 mm[Hg] [facility] of pressure Medicine Heart rate 2019-06-04 15:36:00 77 /min [facility] ol[facility] of Medicine Body height 2019-06-04 15:36:00 157[facility]5 [facility] weight 2019-06-04 15:36:00 77.565 kg [facility] of Medicine BMI 2019-06-04 15:36:00 31.28 kg/m2 [facility] of Medicine Procedures This patient has no known procedures. Plan of Care Planned Activity Planned Date Details Comments Source Future Scheduled COLON CANCER [facility] Erica ege Test SCREENING: of Medicine COLONOSCOPY [code = COLON CANCER SCREENING: COLONOSCOPY] Future Scheduled MAMMOGRAM ANNUAL [facility] Test [code = MAMMOGRAM of Medicin e ANNUAL] Future Scheduled MEDICARE AWV [code = [facility] Test MEDICARE AWV] of Medicine Future Scheduled Diabetic foot [facility] Col lege Test examination of Medicine (regime/therapy) [code = 567632112] Future Scheduled ANNUAL DIABETIC [facility] C ollege Test RETINOPATHY of Medicine SCREENING [code = ANNUAL DIABETIC RETINOPATHY SCREENING] Future Scheduled BMI FOLLOW UP PLAN [facility] r College Test [code = BMI FOLLOW of Medici ne UP PLAN] Future Scheduled HEPATITIS C [facility] Erica ege Test SCREENING [code = of Medicin e HEPATITIS C SCREENING] Future Scheduled FLU VACCINE > 6 [facility] C ollege Test MONTHS [code = FLU of Medici ne VACCINE > 6 MONTHS] Future Scheduled FALL SCREEN [code = [facility] [place] Test FALL SCREEN] of Medicine Future Scheduled OSTEOPOROSIS [facility] Erica ege Test SCREENING [code = of Medicin e OSTEOPOROSIS SCREENING] Future Scheduled PNEUMOVAX >=65 [facility] Co llege Test (PPSV23) [code = of Medicine PNEUMOVAX >=65 (PPSV23)] Future Scheduled PREVNAR >= 65 [facility] Col lege Test (PCV13) [code = of Medicine PREVNAR >= 65 (PCV13)] Future Scheduled TETANUS SHOT (ADULT) [facility] Test [code = TETANUS SHOT of Medi cine (ADULT)] Future Scheduled HOME SLEEP TEST 1 Occurrences [facility] Test (WATCHPAT) [code = starting 06/04/2019 of Medicine 42812] until 06/03/2020 Encounters Start End Encounter Admission Attending Care Care Encounter Source Date/Time Date/Time Type Type Clinicians Facility Department ID 2023-02-17 Outpatient AndrewsCARLIE bolaños [facility] [id number] Common 08:22:00 [facility] [address] [facility] 2023-02-05 Outpatient Darryl [facility] [id number] Common 08:34:00 [facility] [id number] [facility] 2023-02-04 Outpatient Andrews, STLMLC STLMLC [id number] Common 13:39:00 [facility] [id number] [facility] 2022-11-18 Outpatient Andrews, STLMLC STLMLC [id number] Common 08:58:00 [facility] [id number] [facility] 2022-11-13 Outpatient Andrews, STLMLC STLMLC [id number] Common 13:30:00 [facility] [id number] [facility] 2022-11-07 Outpatient PRICE, Na STLMLC STLMLC [id number] 2 Common 09:52:00 [id number] [facility] 2022-07-11 Outpatient Price, Na STLMLC STLMLC [id number] 2 Common 08:53:00 [facility] 2022-03-20 Outpatient Price, Na STLMLC STLMLC [id number] 2 Common 11:25:02 [facility] 2022-02-27 Outpatient Price, Na STLMLC STLMLC [id number] 2 Common 16:48:00 [facility] 2022-01-29 Outpatient Price, Na STLMLC STLMLC [id number] 2 Common 07:35:00 [facility] 2021-11-20 Outpatient Price, Na STLMLC STLMLC [id number] 2 Common 08:59:00 [facility] 2021-10-24 Outpatient Price, Na STLMLC STLMLC [id number] 2 Common 14:31:51 [facility] 2021-10-24 Outpatient Price, Na STLMLC STLMLC [id number] 2 Common 14:31:16 [facility] 2021-10-24 Outpatient Price, Na STLMLC STLMLC [id number] 2 Common 13:56:58 [facility] 2021-10-24 Outpatient Price, Na STLMLC STLMLC [id number] 2 Common 13:55:40 [facility] 2021-10-24 Outpatient Price, Na STLMLC STLMLC [id number] 2 Common 13:21:40 [id number] [facility] 2021-10-24 Outpatient Price, Na STLMLC STLMLC [id number] 2 Common 12:34:25 [id number] [facility] 2021-10-24 Outpatient Price, Na STLMLC STLMLC [id number] 2 Common 12:33:43 [id number] [facility] 2021-10-24 Outpatient Price, Na STLMLC STLMLC [id number] 2 Common 12:26:23 [id number] [facility] 2021-10-24 Outpatient Price, Na STLMLC STLMLC [id number] 2 Common 12:25:54 [id number] [facility] 2021-10-24 Outpatient Price, Na STLMLC STLMLC [id number] 2 Common 12:25:14 [id number] [facility] 2021-10-24 Outpatient Price, Na STLMLC STLMLC [id number] 2 Common 12:14:24 [id number] [facility] 2021-10-24 Outpatient Price, Na STLMLC STLMLC [id number] 2 Common 12:09:07 [id number] [facility] 2021-10-24 Outpatient Price, Na STLMLC STLMLC [id number] 2 Common 12:08:43 [id number] [facility] 2021-10-24 Outpatient Price, Na STLMLC STLMLC [id number] 2 Common 11:45:57 78583 [facility] 2021-10-24 Outpatient Price, Na STLMLC STLMLC [id number] 2 Common 11:26:57 [id number] [facility] 2021-10-24 Outpatient Price, Na STLMLC STLMLC [id number] 2 Common 11:26:48 [id number] [facility] 2021-10-24 Outpatient Price, Na STLMLC STLMLC [id number] 2 Common 11:26:27 [id number] [facility] 2021-10-24 Outpatient Price, Na STLMLC STLMLC [id number] 2 Common 11:09:03 [id number] [facility] 2022-10-02 2022-10-02 (TEL) STLMLC STLMLC [id number] Co mmon 00:00:00 00:00:00 [facility] 2022-07-30 2022-07-30 (TEL) STLMLC STLMLC [id number] Co mmon 00:00:00 00:00:00 [facility] 2022-07-15 2022-07-15 (TEL) STLMLC STLMLC [id number] Co mmon 00:00:00 00:00:00 [facility] 2022-07-15 2022-07-15 OFFICE STLMLC STLMLC [id number] Co mmon 00:00:00 00:00:00 VISIT [facility] PT - [facility] LEVEL 4 [facility] 2022-07-10 2022-07-10 (TEL) STLMLC STLMLC [id number] Co mmon 00:00:00 00:00:00 [facility] 2022-03-22 2022-03-22 (TEL) STLMLC STLMLC [id number] Co mmon 00:00:00 00:00:00 [facility] 2022-03-22 2022-03-22 SUB ANNUAL STLMLC STLMLC [id number] Common 00:00:00 00:00:00 MCR [facility] VISIT [facility] 2022-03-22 2022-03-22 OFFICE STLMLC STLMLC [id number] Co mmon 00:00:00 00:00:00 VISIT EST Spir [facility] PT LEVEL 3 [facility] 2021-11-20 2021-11-20 OFFICE STLMLC STLMLC [id number] Co mmon 00:00:00 00:00:00 VISIT EST Spir [facility] PT LEVEL 3 - [facility] 2021-10-04 2021-10-04 OFFICE STLMLC STLMLC [id number] Co mmon 00:00:00 00:00:00 VISIT [facility] ESTAB PT - [facility] LEVEL 4 [facility] 2021-10-03 2021-10-03 (COVID STLMLC STLMLC [id number] Co mmon 00:00:00 00:00:00 Inj) COVID Spi rit Injection - [facility] 2021-09-04 2021-09-04 (TEL) STLMLC STLMLC [id number] Co mmon 00:00:00 00:00:00 [facility] 2021-08-30 2021-08-30 OFFICE STLMLC STLMLC [id number] Co mmon 00:00:00 00:00:00 VISIT EST Sp[facility] PT LEVEL 3 - [facility] 2021-08-29 2021-08-29 (TEL) STLMLC STLMLC [id number] Co mmon 00:00:00 00:00:00 [facility] 2021-07-16 2021-07-16 (TEL) STLMLC STLMLC [id number] Co mmon 00:00:00 00:00:00 [facility] 2021-07-04 2021-07-04 (TEL) STLMLC STLMLC [id number] Co mmon 00:00:00 00:00:00 [facility] 2021-07-03 2021-07-03 OFFICE STLMLC STLMLC [id number] Co mmon 00:00:00 00:00:00 [facility] ESTAB PT - [facility] LEVEL 4 [facility] 2021-03-29 2021-03-29 OFFICE STLMLC STLMLC [id number] Co mmon 00:00:00 00:00:00 [facility] ESTAB PT - [facility] LEVEL 4 [facility] 2021-02-21 2021-02-21 Outpatient STLMLC STLMLC [id number] Common 00:00:00 00:00:00 [facility] 2020-12-01 2020-12-01 Outpatient STLMLC STLMLC [id number] Common 00:00:00 00:00:00 [facility] 2020-11-29 2020-11-29 Outpatient STLMLC STLMLC [id number] Common 00:00:00 00:00:00 [facility] 2020-11-27 2020-11-27 Outpatient STLMLC STLMLC [id number] Common 00:00:00 00:00:00 [facility] 2020-10-26 2020-10-26 Outpatient STLMLC STLMLC [id number] Common 00:00:00 00:00:00 [facility] 2020-09-14 2020-09-14 Outpatient STLMLC STLMLC [id number] Common 00:00:00 00:00:00 [facility] 2020-09-14 2020-09-14 Outpatient STLMLC STLMLC [id number] Common 00:00:00 00:00:00 [facility] 2020-08-29 2020-08-29 Outpatient STLMLC STLMLC [id number] Common 00:00:00 00:00:00 [facility] 2020-08-17 2020-08-17 Outpatient STLMLC STLMLC [id number] Common 00:00:00 00:00:00 [facility] 2020-08-16 2020-08-16 Outpatient STLMLC STLMLC [id number] Common 00:00:00 00:00:00 [facility] 2020-06-20 2020-06-20 Outpatient STLMLC STLMLC [id number] Common 00:00:00 00:00:00 [facility] 2020-06-15 2020-06-15 Outpatient STLMLC STLMLC [id number] Common 00:00:00 00:00:00 [facility] 2020-03-15 2020-03-15 [id number] Common 09:20:00 09:20:[address] [facility] [facility] 2019-11-29 2019-11-29 [facility] [id number] Common 16:03:00 16:03:[address] [facility] [facility] 2019-11-23 2019-11-23 [facility] [id number] Common 14:56:00 14:56:[address] [facility] [facility] 2019-11-22 2019-11-22 [facility] [id number] Common 10:40:00 10:40:[address] [facility] [facility] 2019-09-20 2019-09-20 [facility] [id number] Common 15:00:00 15:00:[address] [facility] [facility] [address] [facility] 2019-08-19 2019-08-19 [facility] [id number] Common 14:00:00 14:00:[address] [facility] [facility] 2019-06-04 2019-06-04 Office LESLYE Lindo [id number] 10:30:06 11:30:06 Visit Annise AMBULATOR [id number] Y [id number] [facility] 2019-06-04 2019-06-04 Office LESLYE Lindo [id number] [place] [address] 10:30:06 11:30:06 Visit Annise AMBULATOR [id number] College Y [id number] [facility] 800 e 2019-05-14 2019-05-14 [facility] [id number] Common 11:00:00 11:00:[address] [facility] [facility] 2019-04-22 2019-04-22 [facility] [id number] Common 10:00:00 10:00:[address] [facility] [facility] [address] [facility] 2019-04-13 2019-04-13 [facility] [id number] Common 10:00:00 10:00:[address] [facility] [facility] [address] [facility] 2019-04-07 2019-04-07 [facility] [id number] Common 16:14:00 16:14:[address] [facility] [facility] 2018-11-09 2018-11-09 [facility] [id number] Common 08:30:00 08:30:[address] [facility] [facility] [address] [facility] 2018-09-30 2018-09-30 [facility] [id number] Common 15:47:00 15:47:[address] [facility] [facility] [address] [facility] 2018-09-24 2018-09-24 [facility] [id number] Common 09:45:00 09:45:[address] [facility] [facility] [address] [facility] 2018-05-08 2018-05-08 [facility] [id number] Common 09:45:00 09:45:[address] [facility] [facility] 2018-01-27 2018-01-27 [facility] [id number] Common 16:18:00 16:18:[address] [facility] [facility] 2018-01-26 2018-01-26 [facility] [id number] Common 08:15:00 08:15:[address] Spir it Drive [facility] 2018-01-23 2018-01-23 [id number] Common 10:09:00 10:09:[address] [facility] 2018-01-14 2018-01-14 [id number] Common 08:20:00 08:20:[address] [facility] 2017-12-30 2017-12-30 [facility] [id number] Common 09:00:00 09:00:[address] [facility] Results Test Description Test Time Test Comments Results Result Comments Source POCT-GLUCOSE METER 2019-04-03 11:47:00 Test Item Value Reference Range Interpretation Comme nts POC-GLUCOSE METER (RAH) (test 209 mg/dL 70-[address] [facility] [address] [place] [address] code = 1538) [facility] 7703 0 POCT-GLUCOSE [id number] 08:53:00 Test Item Value Reference Range Interpretation Comments POC-GLUCOSE METER 115 mg/dL 70-[address] [facility] 6720 (BEAKER) (test code = M[place] 1538) [address] BASIC METABOLIC [id number] 06:28:00 Test Item Value Reference Range Interpretation [...] ESTIMATED GFR. CBC W/PLT COUNT & AUTO [id number] 05:10:00 Test Item Value Reference Range Interpretation [...] PERCENT (BEAKER) (test code = 2801) POCT-GLUCOSE [id number] 21:44:00 Test Item Value Reference Range Interpretation Comments POC-GLUCOSE METER 137 mg/dL 70-110 H TESTED AT [place] [address] ([facility]) (test code = [facility] 1538) [address] POCT-GLUCOSE [id number] 16:51:00 Test Item Value Reference Range Interpretation Comments POC-GLUCOSE METER 107 mg/dL 70-110 TESTED AT [place] [address] ([facility]) (test code = [facility] 1538) [address] POCT-GLUCOSE [id number] 12:23:00 Test Item Value Reference Range Interpretation Comments POC-GLUCOSE METER 122 mg/dL 70-110 H TESTED AT [place] [address] ([facility]) (test code = [facility] 1538) [address] POCT-GLUCOSE [id number] 07:53:00 Test Item Value Reference Range Interpretation Comments POC-GLUCOSE METER 90 mg/dL 70-[address] [facility] 6720 (BEAKER) (test code = MATT [place] [facility] [address] 1538) BASIC METABOLIC [id number] 07:12:00 Test Item Value Reference Range Interpretation [...] CALCULA TE ESTIMATED GFR. VITAMIN B12 AND [id number] 06:46:00 Test Item Value Reference Range Interpretation Comments VITAMIN B12 (BEAKER) (test code = 313 pg/mL 213-816 774) FOLATE (BEAKER) (test code = 362) 15.3 ng/mL >=7.0 CBC W/PLT COUNT & AUTO [id number] 05:44:00 Test Item Value Reference Range Interpretation [...] PERCENT (BEAKER) (test code = 2801) POCT-GLUCOSE [id number] 21:49:00 Test Item Value Reference Range Interpretation Comments POC-GLUCOSE METER 157 mg/dL 70-[address] [facility] 6720 ([facility]) (test code = [place] 1538) [address] CT, CAROTID, [id number] 17:45:00FINAL REPORT CT, CAROTID, ANGIO, CT, CTANGIO [...] is diminutive throughout with bilateral functional -type automobile mechanic helper. There is multifocal mild to moderate atherosclerotic disease of the posterior circulation including the superior cerebellar arteries and the anterior inferior cerebellar arteries. Normal contrast opacification of the vertebrobasilar system. Posterior cerebral arteries: Bilateral functional -type automobile mechanic helper. Normal contrast opacification of the bilateral REBAR WORKER P1-P2 branches. Venous opacification: Major dural sinuses [...] MDReport Verified Date/Time: 04/01/2019 17:45:01 Reading Location: [address] Neuro Reading Room CT, CTANGIO [id number] 17:45:00FINAL REPORT CT, CAROTID, ANGIO, CT, CTANGIO [...] is diminutive throughout with bilateral functional -type automobile mechanic helper. There is multifocal mild to moderate atherosclerotic disease of the posterior circulation including the superior cerebellar arteries and the anterior inferior cerebellar arteries. Normal contrast opacification of the vertebrobasilar system. Posterior cerebral arteries: Bilateral functional -type automobile mechanic helper. Normal contrast opacification of the bilateral REBAR WORKER P1-P2 branches. Venous opacification: Major dural sinuses [...] MDReport Verified Date/Time: 04/01/2019 17:45:01 Reading Location: [address] Neuro Reading Room -GLUCOSE [id number] 15:14:00 Test Item Value Reference Range Interpretation Comments POC-GLUCOSE METER 132 mg/dL 70-[address] [facility] 6720 ([facility]) (test code = [facility] 1538) [address] TSH/FREE T4 IF [id number] 14:03:00 Test Item Value Reference Range Interpretation Comments THYROID STIMULATING HORMONE 0.44 uIU/mL 0.35-4.94 ([facility]) (test code = 772) HEMOGLOBIN [id number] 13:52:00 Test Item Value Reference Range Interpretation Comments HEMOGLOBIN A1C ([facility]) (test code = 8.9 % 4.3-6.1 H 368) URINALYSIS W/ REFLEX URINE [id number] 13:51:00 Test Item Value Reference Range Interpretation Comments COLOR ([facility]) (test code = 470) Light Yellow CLARITY [...] code = 516) SOURCE(BEAKER) (test code = 2323) CBC W/PLT COUNT & AUTO [id number] 13:44:00 Test Item Value Reference Range Interpretation [...] PERCENT (BEAKER) (test code = 2801) LIPID [id number] 13:44:00 Test Item Value Reference Range Interpretation [...] Borderline 130-159 High 160-189 Very High >=190POCT-GLUCOSE [id number] 13:14:00 Test Item Value Reference Range Interpretation Comments POC-GLUCOSE METER 123 mg/dL 70-[address] [facility] 6720 (BEAKER) (test code = [place] 1538) [address] BASIC METABOLIC [id number] 09:34:00 Test Item Value Reference Range Interpretation [...] 358) GLUCOSE RANDOM 133 mg/dL 70-105 H (BEAKER) (test code = 652) CALCIUM (BEAKER) 9.3 mg/dL 8.4-10.2 (test code = 697) EGFR (BEAKER) (test mL/min/1.73 INSUFFIC IENT CLINICAL code = 1092) sq m DATA TO CALCULA TE ESTIMATED GFR. [id number] 09:21:00 Test Item Value Reference Range Interpretation Comments PHOSPHORUS (BEAKER) (test code = 4.4 mg/dL 2.3-4.7 604) [id number] 09:21:00 Test Item Value Reference Range Interpretation Comments MAGNESIUM (BEAKER) (test code = 2.1 mg/dL 1.6-2.6 627) MR, MRA, BRAIN, WITHOUT [id number] 07:24:00Reason for exam:->Ischemic Stroke EvaluationFINAL REPORT MR, [...] circulation is congenitally diminutive with functional -type automobile mechanic helper bilaterally. Right V4 segment is markedly diminutive, however, demonstrates flow related enhancement throughout. 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 Right V4 segment is markedly diminutive, however, demonstrates flow related enhancement throughout. Normal flow-related enhancement within the bilateral REBAR WORKER P1-P2 segments without flow-limiting stenosisAdditional findings: None. [...] MDReport Verified Date/Time: 04/01/2019 07:24:55 Reading Location: [facility] Reading [facility] MR, MRA, NECK, WITHOUT IV [id number] 07:24:00Reason for exam:->Ischemic Stroke EvaluationFINAL REPORT MR, [...] circulation is congenitally diminutive with functional -type automobile mechanic helper bilaterally. Right V4 segment is markedly diminutive, however, demonstrates flow related enhancement throughout. 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 Right V4 segment is markedly diminutive, however, demonstrates flow related enhancement throughout. Normal flow-related enhancement within the bilateral REBAR WORKER P1-P2 segments without flow-limiting stenosisAdditional findings: None. [...] conversion or significant mass effect. Signed: Barbara [place] Verified Date/Time: 04/01/2019 07:24:55 Reading Location: [facility] B1 C013V Neuro Reading Room MR, BRAIN, WITHOUT [id number] 07:24:00Reason for exam:->Ischemic Stroke EvaluationFINAL REPORT MR, [...] circulation is congenitally diminutive with functional -type automobile mechanic helper bilaterally. Right V4 segment is markedly diminutive, however, demonstrates flow related enhancement throughout. 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 Right V4 segment is markedly diminutive, however, demonstrates flow related enhancement throughout. Normal flow-related enhancement within the bilateral REBAR WORKER P1-P2 segments without flow-limiting stenosisAdditional findings: None. [...] or significant mass effect. Signed: Barbara Strong Verified Date/Time: 04/01/2019 07:24:55 Reading Location: [address] Neuro Reading Room
[2023-02-25 19:06] LABS: SARS-CoV-2 Antigen Rapid Res Positive (Negative)
--- NOTE | 2023-02-25 19:38 | RAD REPORT ---
EXAM DESCRIPTION: Flores Bush And Santi (2 Views)02/25/2023 7:33 pm CLINICAL HISTORY: Cough COMPARISON: February 21, 2023 FINDINGS: The lungs appear clear of acute infiltrate. The heart is normal size IMPRESSION: No acute abnormalities displayed
--- NOTE | 2023-02-25 19:47 | EDPHYS ---
Physician Documentation [facility] Name: Kallie Rivera Age: 67 yrs Sex: Female : 1955 Arrival Date: 02/25/2023 Time: 17:40 Bed 24 Private MD: ED Physician Nixon Joseph HPI: 02/25 18:01 This 67 yrs old Female presents to ER via Ambulatory with complaints of Fever. bs3 18:01 59-year-old female history of diabetes and hypertension presents with cough nasal bs3 congestion and fever since Friday she notes that she was here on Friday for medical clearance for a cyst removal and is currently on Bactrim but comes in with the symptoms since Friday night she has no known sick contacts she has no difficulty breathing but she has pain with coughing no neck pain or stiffness no abdominal pain no nausea no vomiting no rash no recent travel. Historical: - PMHx: 17:56 diabetes mellitus; Hypertensive disorder; iw - PSHx: 17:56 Total abdominal hysterectomy; iw ROS: 18:01 Constitutional: Positive for fever bs3 18:01 All other systems are negative. Exam: 18:01 Constitutional: This is a well developed, well nourished patient who is awake, alert, bs3 and in no acute distress. Head/Face: Normocephalic, atraumatic. Eyes: Pupils equal round and reactive to light, extra-ocular motions intact. Lids and lashes normal. ENT: mmm, no posterior phyarngeal erythema Neck: Trachea midline, no thyromegaly, no neck stiffness Chest/axilla: Normal chest wall appearance and motion. Nontender with no deformity. No lesions are appreciated. Cardiovascular: Tachycardic no murmur Respiratory: Lungs have equal breath sounds bilaterally, clear to auscultation, no respiratory distress Abdomen/GI: Soft, non-tender, no rebound or guarding Skin: Warm, dry with normal turgor. Normal color with no rashes, no lesions, and no evidence of cellulitis. MS/ Extremity: Pulses equal, no cyanosis. Neurovascular intact. Full, normal range of motion. Neuro: Awake and alert, GCS 15, oriented to person, place, time, and situation. Cranial nerves II-XII grossly intact. Motor strength 5/5 in all extremities. Sensory grossly intact. Vital Signs: 17:54 BP 154 / 76; Pulse 100; Resp 18; Temp 98.5; Pulse Ox 98% on R/A; Weight 69.85 kg; iw Height 5 ft. 1 in. ; 19:42 BP 149 / 78; Pulse 90; Resp 18; Temp 98.7; Pulse Ox 99% on R/A; Pain 7/10; pf1 17:54 Body Mass Index 29.10 (69.85 kg, 154.94 cm) iw 19:42 Pain Scale: Adult pf1 MDM: 17:47 Patient medically screened. bs3 18:01 Data reviewed: vital signs, nurses notes. ED course: Patient here with URI-like bs3 symptoms she is very well appearing discussed risks and benefits of testing will rule out pneumonia as her Bactrim would not necessarily cover this will rule out flu and COVID. 19:46 ED course: COVID-positive patient is fully vaccinated discussed risks and benefits of bs3 treatment will prescribe return precautions given. 02/25 18:00 Order name: Influenza Screen (a \T\ B) bs3 02/25 18:00 Order name: SARS-COV-2 Antigen Rapid; Complete Time: 19:42 bs3 02/25 18:00 Order name: Chest Pa And Lat (2 Views) XRAY; Complete Time: 19:42 bs3 Administered Medications: No medications were administered Disposition Summary: 02/25/23 19:46 Discharge Ordered Location: Home bs3 Problem: new bs3 Symptoms: have improved bs3 Condition: Stable bs3 Diagnosis - SARS-associated coronavirus as the cause of diseases classified elsewhere bs3 Followup: bs3 - With: Private Physician - When: 48 Hours - Reason: Re-evaluation by your physician Discharge Instructions: - Discharge Summary Sheet bs3 - Viral Illness, Adult bs3 Forms: - Medication Reconciliation Form bs3 - Thank You Letter bs3 - Antibiotic Education bs3 - Prescription Opioid Use bs3 Prescriptions: - Paxlovid (EUA) 300 mg (150 mg x 2)-100 mg Oral Tablet, Dose Pack - take 1 dose pack by ORAL route per package directions; 1 blisters; Refills: 0, bs3 Product Selection Permitted Signatures: Dispatcher [employer] Kasia Cary RN RN iw Nixon Joseph MD MD bs3
--- NOTE | 2023-02-25 19:47 | ER ---
Nurse's Notes [facility] Name: Kallie Rivera Age: 67 yrs Sex: Female : 1955 Arrival Date: 02/25/2023 Time: 17:40 Bed 24 Private MD: Diagnosis: SARS-associated coronavirus as the cause of diseases classified elsewhere Presentation: 02/25 17:54 Chief complaint: Patient states: congestion, fever, doesn't feel well since Friday. iw Coronavirus screen: Client presents with at least one sign or symptom that may indicate coronavirus-19. Ebola Screen: Patient negative for fever greater than or equal to 101.5 degrees Fahrenheit, and additional compatible Ebola Virus Disease symptoms Patient denies exposure to infectious person. Patient denies travel to an Ebola-affected area in the 21 days before illness onset. No symptoms or risks identified at this time. Initial Sepsis Screen: Does the patient meet any 2 criteria? No. Patient's initial sepsis screen is negative. Does the patient have a suspected source of infection? No. Patient's initial sepsis screen is negative. Risk Assessment: Do you want to hurt yourself or someone else? Patient reports no desire to harm self or others. Onset of symptoms was February 21, 2023. 17:54 Method Of Arrival: Ambulatory iw 17:54 Acuity: PORFIRIO 4 iw Historical: - PMHx: 17:56 diabetes mellitus; Hypertensive disorder; iw - PSHx: 17:56 Total abdominal hysterectomy; iw Screenin:27 [facility] ED Fall Risk Assessment (Adult) History of falling in the last 3 months, mb9 including since admission No falls in past 3 months (0 pts) Confusion or Disorientation No (0 pts) Intoxicated or Sedated No (0 pts) Impaired Gait No (0 pts) Mobility Assist Device Used No (0 pt) Altered Elimination No (0 pt) Score/Fall Risk Level 0 - 2 = Low Risk Oriented to surroundings, Maintained a safe environment, Educated pt \T\ family on fall prevention, incl call for assistance when getting out of bed. Abuse screen: Denies threats or abuse. Nutritional screening: No deficits noted. Tuberculosis screening: No symptoms or risk factors identified. Assessment: 19:30 General: Patient in xray. pf1 19:41 General: Appears in no apparent distress. comfortable, well groomed, well developed, pf1 Behavior is calm, cooperative, appropriate for age, quiet. Pain: Complains of pain in body aches Pain currently is 7 out of 10 on a pain scale. Neuro: No deficits noted. Level of Consciousness is awake, alert, obeys commands, Oriented to person, place, time, situation. Cardiovascular: No deficits noted. Capillary refill < 3 seconds Patient's skin is warm and dry. Respiratory: Reports cough that is Airway is patent Respiratory effort is even, unlabored, Respiratory pattern is regular, symmetrical, Breath sounds are clear bilaterally. GI: No deficits noted. No signs and/or symptoms were reported involving the gastrointestinal system. : No deficits noted. No signs and/or symptoms were reported regarding the genitourinary system. EENT: Reports nasal congestion nasal discharge clear. Derm: No deficits noted. No signs and/or symptoms reported regarding the dermatologic system. Musculoskeletal: No deficits noted. No signs and/or symptoms reported regarding the musculoskeletal system. Vital Signs: 17:54 BP 154 / 76; Pulse 100; Resp 18; Temp 98.5; Pulse Ox 98% on R/A; Weight 69.85 kg; iw Height 5 ft. 1 in. ; 19:42 BP 149 / 78; Pulse 90; Resp 18; Temp 98.7; Pulse Ox 99% on R/A; Pain 7/10; pf1 17:54 Body Mass Index 29.10 (69.85 kg, 154.94 cm) iw 19:42 Pain Scale: Adult pf1 ED Course: 17:46 Patient arrived in ED. mr 17:47 Nixon Joseph MD is Attending Physician. bs3 17:56 Triage completed. iw 17:56 Arm band placed on. iw 19:27 Placed in gown. Bed in low position. Call light in reach. Side rails up X 1. Client mb9 placed on continuous cardiac and pulse oximetry monitoring. NIBP monitoring applied. 19:28 No provider procedures requiring assistance completed. mb9 19:35 Chest Pa And Lat (2 Views) XRAY In Process Unspecified. EDMS 20:07 Patient did not have IV access during this emergency room visit. pf1 Administered Medications: No medications were administered Medication: 19:28 VIS not applicable for this client. mb9 Outcome: 19:46 Discharge ordered by . bs3 20:07 Discharged to home ambulatory. pf1 20:07 Condition: stable 20:07 Discharge instructions given to patient, Instructed on discharge instructions, follow up and referral plans. Demonstrated understanding of instructions, follow-up care, medications, Prescriptions given X 1. 20:07 Patient left the ED. pf1 Signatures: Dispatcher [employer] Merry PainterKasia, RN RN iw Nixon Joseph MD MD bs3 Merry Felipe RN RN mb9 Samina Baker RN RN pf1 Corrections: (The following items were deleted from the chart) 19:35 19:30 General: Patient in xray. pf1 pf1 20:07 19:41 Respiratory: Airway is patent Respiratory effort is even, unlabored, Respiratory pf1 pattern is regular, symmetrical, Breath sounds are clear bilaterally. pf1
[2023-02-25 20:29] VITALS: BP 149/78; TEMP 98.7; O2SAT 99
--- NOTE | 2023-02-26 14:43 | EKG ---
Test Date: 2023-02-21 Test Time: 13:10:32 Shoe Salesperson: PRINCE MEASUREMENT RESULTS: Intervals: Rate: 91 ID: [id number] QRSD: 86 QT: 358 QTc: 440 [place]: P: 52 ID: [id number] QRS: 15 T: 91 INTERPRETIVE STATEMENTS: Normal sinus rhythm Nonspecific T wave abnormality Abnormal ECG Compared to ECG 02/21/2023 13:09:15 Prolonged QT interval no longer present T-wave abnormality still present Electronically Signed On 02-26-23 14:39:11 CDT by Trevor Omalley
== END 2023-02-25 20:07 | disposition home or self-care (01) ==
LOC: ER 17:40
DX: U07.1 COVID-19 (principal)
CPT/HCPCS: 36415; 71046; 87804; 87811; 93005; 99283

== ENCOUNTER 2023-03-05 06:23 | Day surgery (SDC) | payer OTHER ==
[2023-02-21 13:45] LABS: Potassium 3.8 mEq/L (3.5-5.1)
[2023-02-21 14:18] LABS: Hematocrit 45.8 % (36.0-45.0); Lymphocytes % 17.8 % (15.3-44.8); MCV 82.8 fL (80-100); MPV 8.7 fL (7.6-11.3); RBC Red Blood Cell Count 5.53 M/uL (3.86-4.86)
--- NOTE | 2023-02-21 14:26 | RAD REPORT ---
EXAM DESCRIPTION: [facility] Pa And Lat (2 Views)02/21/2023 1:59 pm CLINICAL HISTORY: PRE-OP COMPARISON: Chest Single View dated 03/31/2019; Chest Pa And Lat (2 Views) dated 10/24/2016 TECHNIQUE: PA and lateral views of the chest. FINDINGS: The lungs are clear. Implantable rhythm monitoring device is present. No pneumothorax or e ffusion. The cardiomediastinal contours are unremarkable. IMPRESSION: No acute cardiopulmonary process.
--- NOTE | 2023-02-26 07:17 | EKG ---
Test Date: 2023-02-21 Test Time: 13:09:15 Environmental Emergencies Planner: PRINCE MEASUREMENT RESULTS: Intervals: Rate: 91 MO: 134 QRSD: 88 QT: 384 QTc: 472 [place]: P: 50 MO: 134 QRS: 13 T: 84 INTERPRETIVE STATEMENTS: Normal sinus rhythm Nonspecific T wave abnormality Prolonged QT Abnormal ECG Compared to ECG 03/31/2019 22:49:57 Prolonged QT interval now present T-wave abnormality still present Electronically Signed On 02-26-23 07:08:04 CDT by Bal Vaughn
[2023-03-05] MEDS: CEFAZOLIN SODIUM 1 GM/VIAL ONE ×2 (07:04→07:55)
[2023-03-05] MEDS ORDERED: MIDAZOLAM HCL 2 MG/2 ML INJ ONE (07:05)
[2023-03-05] MEDS ORDERED: KETOROLAC 30 MG/ML INJ ONE (07:05)
[2023-03-05] MEDS ORDERED: FENTANYL CITR 100 MCG/2 ML ONE (07:05)
[2023-03-05] MEDS ORDERED: ONDANSETRON 4 MG/2 ML VIAL ONE (07:05)
[2023-03-05] MEDS ORDERED: LIDOCAINE 2% MPF 5 ML VIAL ONE (07:05)
[2023-03-05] MEDS ORDERED: propofoL 200 MG/20 ML VIAL IV ONE (07:05)
--- NOTE | 2023-03-05 08:28 | P.BOP ---
Preoperative diagnosis: infected right axillary subQ mass Postoperative diagnosis: same Primary procedure: Excisional biopsy infected right axillary subQ mass 3x3cm Estimated blood loss: <10cc Specimen: mass Findings: mass Anesthesia: General Complications: None Transferred to: Recovery Room Condition: Good
[2023-03-05 08:55] VITALS: TEMP 97.2
[2023-03-05 09:22] VITALS: BP 139/75; O2SAT 94
--- NOTE | 2023-03-05 16:20 | DS ---
Date of Discharge: 03/05/2023 Diagnosis: Infected right axillary subcutaneous mass. Procedure: Excisional biopsy of infected right axillary subcutaneous mass. Disposition: Home. Activity: As tolerated. No heavy lifting. Plan: Follow up in my office in 1 week. Call for appointment at [phone]. Keep area dry for 48 hallie rs, then may shower and cover the area with triple antibiotics and sterile dressings. DAE/MYLES Voice ID: [id number] Report ID: [id number]
--- NOTE | 2023-03-05 16:29 | OP ---
Date of Procedure: 03/05/2023 Surgeon: Carlos Dietz MD Preoperative Diagnosis: Infected right axillary subcutaneous mass. Postoperative Diagnosis: Infected right axillary subcutaneous mass. Procedure: Excisional biopsy of infected right axillary subcutaneous mass, 3 x 3 cm. Estimated Blood Loss: Less than 10 cc. Specimen: Subcutaneous mass. Anesthesia: General plus local. Complications: None. Indication: This is the case of a 67-year-old patient, who comes to us with an infected axillary mas s. She has been on antibiotics by the primary doctor, but still had given her discomfort. The benef its, alternatives, and risks of excisional biopsy of that mass fully explained, which include, but no t limited to infection, bleeding, damage to adjacent structures, anesthesia complication, recurrence, abscess, seromas, LA, and even . She also understands this may not relieve any symptoms. She might need more than one surgical intervention. We offered her leaving the area if possibility of op en to close by secondary intention and packing. Obviously, she preferred to be closed the area. She took her antibiotics trying to minimize the chance of packing. She understands that even though we put some stitches right now, she may still need to pack in the future. She understood, she wants britt t plan. The benefits, alternatives, and risks explained once again. The area was marked by me and t he patient in the holding room. Procedure In Detail: The patient was brought to the operating room, placed in supine position. Anes thesia was done without complication. Axillary area was prepped and draped in the usual sterile fash ion with proper protection. A wedge incision was made in the skin all the way down to the axillary r egion. We noticed this mass was completely excised. The area was irrigated. I did not see any pus, although there are some contents to it. Some mild erythema over the area, so I irrigated the area p rofusely and closed this in layers and closed the skin with interrupted nylon loose with some spacing in between allowed that. The patient tolerated the procedure well. The patient was sent to recover y in stable condition. Sponge count, instrument counts correct. HM/MODL Voice ID: [id number] Report ID: [id number]
== END 2023-03-05 09:40 | disposition home or self-care (01) ==
LOC: OR 06:23
PROVIDERS: ATTEND Surgery
PROC: 0JBD0ZZ Excision of Right Upper Arm Subcutaneous Tissue and Fascia, Open Approach (ICD-10-PCS; principal; 2023-03-05 07:30)
DX: L72.0 Epidermal cyst (principal); L03.111 Cellulitis of right axilla
CPT/HCPCS: 93005; 85025; 80048; 36415; 82947; 88304; 71046; 11403; J2704; J2001; J2250; J3010; J2405; J0690; 88305

== ENCOUNTER → 2023-10-30 | Emergency (ER) | payer MEDICARE ==
[~2023-10-30] MED LIST: CEFTRIAXONE 1000 MG/VIAL ONE; METRONIDAZOLE 500mg IVPB 500 MG/100 ML BAG IV ONE; NA CHLORIDE 0.9% 250 ML ONE; PANTOPRAZOLE 40 MG INJ ONE
[2023-10-30 13:18] LABS: Absolute Lymphocytes (CBC) 0.9 K/uL (0.7-4.9); Hematocrit 39.6 % (36.0-45.0); MCV 81.8 fL (80-100); MPV 8.1 fL (7.6-11.3); Platelets 203 thou/uL (152-406); RBC Red Blood Cell Count 4.85 M/uL (3.86-4.86)
[2023-10-30 13:29] LABS: Specific Gravity > 1.030 (1.005-1.030); Transitional Epithelial <5 /HPF (None Seen); Urine Bacteria >50 /HPF (<20); Urine Bilirubin NEGATIVE (Negative); Urine Blood Negative (Negative); Urine Clarity Clear (Clear); Urine Color Light-Yellow (Yellow); Urine Glucose 4+ (Over) (Negative); Urine Mucus Slight /HPF (None Seen); Urine Protein NEGATIVE (Negative); Urine RBC <5 /HPF (None Seen); Urine Urobilinogen Normal (Normal); Urine pH 5.5 (5.0-7.0)
[2023-10-30 13:36] LABS: Albumin 2.9 g/dL (3.4-5.0); Bilirubin Total 0.6 mg/dL (0.2-1.0); Potassium 3.2 mEq/L (3.5-5.1); Protein, Total 7.1 g/dL (6.4-8.2)
--- NOTE | 2023-10-30 15:13 | RAD REPORT ---
EXAM DESCRIPTION: CT - Abdomen Pelvis W Contrast - 10/30/2023 1:47 pm CLINICAL HISTORY: ABD PAIN COMPARISON: Abdomen Pelvis W Contrast dated 04/23/2018 TECHNIQUE: Thin cut axial CT imaging of the abdomen and pelvis was performed following intravenous a dministration of 100 mL Isovue 300. Multiplanar reformats were generated and reviewed. All CT scans are performed using dose optimization technique as appropriate and may include automated exposure control or mA/KV adjustment according to patient size. FINDINGS: No suspicious findings in the lung bases. The liver, spleen, adrenal glands, and pancreas show no suspicious findings. Gallbladder and biliary tree are also without suspicious finding. Symmetric renal function is seen with no hydronephrosis or suspicious renal mass. Nonobstructing righ t superior pole 1 cm calculus. Ill-defined fluid collection along the retroperitoneum, just caudal to the third part of the duodenum , measuring 5.5 x 2.4 x 3.2 cm in greatest transverse, AP, and CC dimensions. An ovoid 1.3 cm focus w ithin the collection demonstrates mild hyperdensity. Fat stranding extends slightly more cranially al jasmina the root of the mesentery. No appreciable extraluminal gas. No dilated bowel loops or other bowel wall thickening. No free air, or free fluid. No hernia, mass or bulky lymphadenopathy. The urinary b ladder is without significant finding. No suspicious bony findings. IMPRESSION: Ill-defined collection within the retroperitoneum just caudal to the third part of the d uodenum, concerning for a perforated duodenal ulcer. No extraluminal gas. Nonobstructing right superior renal pole 1 cm calculus. The findings were communicated to Toney Sousa on 10/30/2023 at 14:51 hours.
--- NOTE | 2023-10-30 16:03 | EDPHYS ---
Physician Documentation [facility] Name: Kallie Rivera Age: 68 yrs Sex: Female : 1955 Arrival Date: 10/30/2023 Time: 12:25 Bed 7 Private MD: [facility] ED Physician Christopher Peraza HPI: 10/30 16:34 This 68 yrs old Female presents to ER via Ambulatory with complaints of ms3 Abdominal Pain. 16:34 68-year-old female with past medical history of diabetes, hypertension [place] [facility] for abdominal pain that began on Friday. Patient states the pain is located in her epigastric region and rated a 6/10. Patient denies alleviating or inciting factors. Patient denies fevers, chills. Patient endorses decreased p.o. intake, nausea, vomiting. Historical: - Allergies: 12:33 No Known Allergies; db - PMHx: 12:33 diabetes mellitus; Hypertensive disorder; db - PSHx: 12:33 Total abdominal hysterectomy; db - Immunization history:: Adult Immunizations unknown. - Social history:: Smoking status: Patient denies any tobacco usage or history of. ROS: 16:34 Constitutional: Negative for fever, and chills. Neck: Negative for injury, pain, and ms3 swelling, Cardiovascular: Negative for chest pain, and palpitations. Respiratory: Negative for shortness of breath, cough, wheezing, and pleuritic chest pain, Abdomen/GI: Negative for abdominal pain, nausea, vomiting, diarrhea, and constipation, MS/Extremity: Negative for injury and deformity, Skin: Negative for injury, rash, and discoloration, Exam: 16:44 Constitutional: This is a well developed, well nourished patient who is awake, alert, ms3 and in no acute distress. Head/Face: Normocephalic, atraumatic. Neck: Trachea midline, no cervical lymphadenopathy. Supple, full range of motion without nuchal rigidity, or vertebral point tenderness. No Meningismus. Chest/axilla: Normal chest wall appearance and motion. Nontender with no deformity. Cardiovascular: Regular rate and rhythm with a normal S1 and S2. No gallops, murmurs, or rubs. Normal PMI, no JVD. No pulse deficits. Respiratory: Lungs have equal breath sounds bilaterally, clear to auscultation and percussion. No rales, rhonchi or wheezes noted. No increased work of breathing, no retractions or nasal flaring. 16:44 Skin: Warm, dry with normal turgor. Normal color with no rashes, no lesions, and no evidence of cellulitis. MS/ Extremity: Pulses equal, no cyanosis. Neurovascular intact. Full, normal range of motion. 16:44 Abdomen/GI: Inspection: abdomen appears normal, Bowel sounds: normal, Palpation: moderate abdominal tenderness, in the umbilical area and right upper quadrant, Vital Signs: 12:30 BP 157 / 71; Pulse 100; Resp 18; Temp 98.1; Pulse Ox 97% ; Weight 68.04 kg; Height 5 db ft. 1 in. ; Pain 6/10; 13:30 BP 141 / 70; Pulse 91; Resp 18; Pulse Ox 100% ; cp4 14:30 BP 145 / 77; Pulse 84; Resp 18; Pulse Ox 98% ; cp4 15:30 BP 143 / 73; Pulse 81; Resp 18; Pulse Ox 99% ; cp4 16:30 BP 152 / 77; Pulse 87; Resp 18; Pulse Ox 100% ; cp4 17:30 BP 148 / 70; Pulse 82; Resp 18; Pulse Ox 100% ; cp4 12:30 Body Mass Index 28.34 (68.04 kg, 154.94 cm) db 12:30 Pain Scale: Adult db MDM: 12:58 Patient medically screened. ms3 16:44 Differential diagnosis: cholecystitis, Cholelithiasis, diverticulitis, gastritis, ms3 non-specific abd pain, pancreatitis. Data reviewed: vital signs, nurses notes, lab test result(s), radiologic studies, and as a result, I will transfer patient. Consideration of Admission/Observation Will transfer patient. Management of patient was discussed with the following: Hospitalist: Dr Healy. I considered the following discharge prescriptions or medication management in the emergency department Medications were administered in the Emergency Department. See MAR. Discussion of test interpretation with radiology: I had a discussion with radiology regarding a test interpretation. CT discussed with Radiologist- Concern for duodenal perforation. Care significantly affected by the following chronic conditions: Diabetes, Hypertension. Counseling: I had a detailed discussion with the patient and/or guardian regarding the historical points, exam findings, and any diagnostic results supporting the discharge/admit diagnosis, lab results, radiology results, the need to transfer to another facility, [facility] does not immediately have the required specialist. ED course: Discussed case with Dr. Healy and he would like general surgery notified. General surgery will be calling back.. 16:48 ED course: Discussed case with Dr Brito and she will consult on patient.. ms3 16:49 Historians other than the Patient: Spouse/Significant Other: Patient's . ms3 10/30 12:48 Order name: Glucose, Ancillary Testing; Complete Time: 14:58 EDMS 10/30 13:00 Order name: CBC with Diff; Complete Time: 14:58 ms3 10/30 13:00 Order name: CMP; Complete Time: 14:58 ms3 10/30 13:00 Order name: Lipase; Complete Time: 14:58 ms3 10/30 13:00 Order name: Urinalysis w/ reflexes; Complete Time: 14:58 ms3 10/30 13:32 Order name: Urine Culture EDMS 10/30 16:01 Order name: Blood Culture Adult (2) ms3 10/30 13:00 Order name: CT Abd/Pelvis - IV Contrast Only; Complete Time: 15:15 ms3 10/30 13:00 Order name: IV Saline Lock; Complete Time: 13:13 ms3 10/30 13:00 Order name: Labs collected and sent; Complete Time: 13:14 ms3 Administered Medications: 16:42 Drug: Rocephin IV 1 grams IV at calculated rate once; Given slow IV push per pharmacy cp4 instructions Route: IV; Rate: calculated rate; Site: right antecubital; 16:42 Follow up: Response: No adverse reaction; IV Status: Completed infusion cp4 16:42 Drug: Pantoprazole IVP 40 mg IVP once Route: IVP; Site: right antecubital; cp4 17:36 Follow up: Response: No adverse reaction cp4 16:42 Drug: Pantoprazole IV 8 mg/hr IV at 25 ml/hr continuous; (Standard dilution is 80 mg in cp4 250 mL NS) Route: IV; Rate: 25 ml/hr; Site: right antecubital; 18:45 Follow up: IV Status: Infusion continued upon transfer cp4 18:45 Follow up: Response: No adverse reaction cp4 17:21 Drug: metroNIDAZOLE IVPB 500 mg 100 ml IVPB at 200 ml/hr once over 30 mins Volume: 100 cp4 ml; Route: IVPB; Rate: 200 ml/hr; Infused Over: 30 mins; Site: right antecubital; 18:46 Follow up: Response: No adverse reaction; IV Status: Infusion continued cp4 Point of Care Testing: Blood Glucose: 12:36 Blood Glucose: 147 mg/dL; db Ranges: Critical Glucose Levels:Adult <50 mg/dl or >400 mg/dl <40 mg/dl or >180 mg/dl Disposition Summary: 10/30/23 16:03 Transfer Ordered Notes: Transfer Location: [facility] ms3 Reason: Higher level of care ms3 Condition: Stable ms3 Problem: new ms3 Symptoms: are unchanged ms3 Accepting Physician: (10/30/23 18:50) cp4 Diagnosis - Perforated Duodenal Ulcer ms3 - UTI/ Urinary tract infection, site not specified ms3 - Abdominal pain, unspecified ms3 Forms: - Medication Reconciliation Form ms3 - SBAR form ms3 Critical care time excluding procedures: 16:49 Critical care time: Bedside Care: 30 minutes, Consultation: 8 minutes. Total time: 38 ms3 minutes Signatures: Dispatcher [employer] EDMS Christopher Peraza DO DO ms3 Brigette Ferrer RN RN Sydnee Lunsford cp4 Corrections: (The following items were deleted from the chart) 18:50 16:03 Dr [email or web address] cp4
--- NOTE | 2023-10-30 16:03 | ER ---
Nurse's Notes [facility] Name: Kallie Rivera Age: 68 yrs Sex: Female : 1955 Arrival Date: 10/30/2023 Time: 12:25 Bed 7 Private MD: Guanaco Andrews Diagnosis: Perforated Duodenal Ulcer;UTI/ Urinary tract infection, site not specified;Abdominal pain, unspecified Presentation: 10/30 12:30 Chief complaint: Patient states: STATES STARTED HAVING NAUSEA AND VOMITING ON FRIDAY db AFTER EATING A EGG ROLL. STATES HAS BEEN HAVING NAUSEA AND ABD PAIN SINCE THEN. APPETITE HAS NOT RETURNED. [facility] SAW DR. ANDREWS ON FRIDAY. Coronavirus screen: Vaccine status: Patient reports receiving the 2nd dose of the covid vaccine. Client denies travel out of the [place] in the last 14 days. Ebola Screen: Patient negative for fever greater than or equal to 101.5 degrees Fahrenheit, and additional compatible Ebola Virus Disease symptoms Patient denies exposure to infectious person. Patient denies travel to an Ebola-affected area in the 21 days before illness onset. No symptoms or risks identified at this time. Initial Sepsis Screen: Does the patient meet any 2 criteria? No. Patient's initial sepsis screen is negative. Does the patient have a suspected source of infection? No. Patient's initial sepsis screen is negative. Risk Assessment: Do you want to hurt yourself or someone else? Patient reports no desire to harm self or others. Onset of symptoms was October 26, 2023. 12:30 Method Of Arrival: Ambulatory db 12:30 Acuity: PORFIRIO 3 db Triage Assessment: 12:33 General: Appears in no apparent distress. comfortable, Behavior is calm, cooperative. db Pain: Complains of pain in abdomen. Respiratory: Airway is patent Respiratory effort is even, unlabored, Respiratory pattern is regular, symmetrical. GI: Abdomen is flat, non-distended, Reports nausea, vomiting, Patient currently denies diarrhea. Historical: - Allergies: 12:33 No Known Allergies; db - PMHx: 12:33 diabetes mellitus; Hypertensive disorder; db - PSHx: 12:33 Total abdominal hysterectomy; db - Immunization history:: Adult Immunizations unknown. - Social history:: Smoking status: Patient denies any tobacco usage or history of. Screenin:35 [facility] ED Fall Risk Assessment (Adult) History of falling in the last 3 months, cp4 including since admission No falls in past 3 months (0 pts) Confusion or Disorientation No (0 pts) Intoxicated or Sedated No (0 pts) Impaired Gait No (0 pts) Mobility Assist Device Used No (0 pt) Altered Elimination No (0 pt) Score/Fall Risk Level 0 - 2 = Low Risk Oriented to surroundings, Maintained a safe environment, Educated pt \T\ family on fall prevention, incl call for assistance when getting out of bed, Assessed \T\ reinforced patient's understanding of fall precautions, Provided non-skid footwear, Hourly rounding (assess needs \T\ fall precautionary measures) done. Abuse screen: Denies threats or abuse. Nutritional screening: No deficits noted. Tuberculosis screening: No symptoms or risk factors identified. Assessment: 16:03 General: Transfer initiated with [facility] . as6 16:39 General: Dr. Peraza speaking to physician at [facility]. as6 18:47 GI: Bowel sounds present X 4 quads. Abd is soft and non tender X 4 quads. cp4 Vital Signs: 12:30 BP 157 / 71; Pulse 100; Resp 18; Temp 98.1; Pulse Ox 97% ; Weight 68.04 kg; Height 5 db ft. 1 in. ; Pain 6/10; 13:30 BP 141 / 70; Pulse 91; Resp 18; Pulse Ox 100% ; cp4 14:30 BP 145 / 77; Pulse 84; Resp 18; Pulse Ox 98% ; cp4 15:30 BP 143 / 73; Pulse 81; Resp 18; Pulse Ox 99% ; cp4 16:30 BP 152 / 77; Pulse 87; Resp 18; Pulse Ox 100% ; cp4 17:30 BP 148 / 70; Pulse 82; Resp 18; Pulse Ox 100% ; cp4 12:30 Body Mass Index 28.34 (68.04 kg, 154.94 cm) db 12:30 Pain Scale: Adult db ED Course: 12:27 Patient arrived in ED. rg4 12:27 Guanaco Andrews DO is Private Physician. rg4 12:33 Triage completed. db 12:33 Arm band placed on. db 12:38 Sydnee Nayak is Primary Nurse. cp4 12:45 Christopher Peraza DO is Attending Physician. ms3 13:35 Bed in low position. Call light in reach. Side rails up X 1. cp4 13:35 No provider procedures requiring assistance completed. Inserted saline lock: 20 gauge cp4 in right antecubital area, using aseptic technique. Blood collected. 13:46 CT Abd/Pelvis - IV Contrast Only In Process Unspecified. EDMS 16:42 Blood Culture Adult (2) Sent. cp4 17:29 spoke with ambreen at transfer center with approval for [facility]. bc6 17:50 spoke with felisa at [facility] for transfer to the [facility] ETA of 30 minutes bc6 given. 18:46 Provided Education on: transfer. cp4 18:46 Patient transferred, IV remains in place. cp4 Administered Medications: 16:42 Drug: Rocephin IV 1 grams IV at calculated rate once; Given slow IV push per pharmacy cp4 instructions Route: IV; Rate: calculated rate; Site: right antecubital; 16:42 Follow up: Response: No adverse reaction; IV Status: Completed infusion cp4 16:42 Drug: Pantoprazole IVP 40 mg IVP once Route: IVP; Site: right antecubital; cp4 17:36 Follow up: Response: No adverse reaction cp4 16:42 Drug: Pantoprazole IV 8 mg/hr IV at 25 ml/hr continuous; (Standard dilution is 80 mg in cp4 250 mL NS) Route: IV; Rate: 25 ml/hr; Site: right antecubital; 18:45 Follow up: IV Status: Infusion continued upon transfer cp4 18:45 Follow up: Response: No adverse reaction cp4 17:21 Drug: metroNIDAZOLE IVPB 500 mg 100 ml IVPB at 200 ml/hr once over 30 mins Volume: 100 cp4 ml; Route: IVPB; Rate: 200 ml/hr; Infused Over: 30 mins; Site: right antecubital; 18:46 Follow up: Response: No adverse reaction; IV Status: Infusion continued cp4 Medication: 13:35 VIS not applicable for this client. cp4 Point of Care Testing: Blood Glucose: 12:36 Blood Glucose: 147 mg/dL; db Ranges: Outcome: 16:03 ER care complete, transfer ordered by ms3 18:46 Transferred by ground EMS to [facility], Transfer form completed. cp4 X-rays sent w/ patient. 18:46 Condition: stable 18:46 Instructed on the need for transfer, Demonstrated understanding of instructions, follow-up care, 18:50 Patient left the ED. cp4 Signatures: Dispatcher [employer] Lauren Lei rg4 Christopher Peraza, DO ms3 Jerome Simon RN RN as6 Brigette Ferrer RN RN db Anjelica Mathis6 Sydnee Nayak cp4
[2023-10-30 20:08] VITALS: TEMP 98.1; O2SAT 100
[2023-10-30 20:25] VITALS: BP 148/70
== END ==
LOC: ER 12:25
DX: K26.5 Chronic or unspecified duodenal ulcer with perforation (principal); N39.0 Urinary tract infection, site not specified; E11.9 Type 2 diabetes mellitus without complications; I10 Essential (primary) hypertension
CPT/HCPCS: 87040 ×2; 87088; 85025; 81001; 87086; 36415; 82947; 87077; 87186; 83690; 80053; 74177; Q9967; C9113; J7050; J0696